=== PATIENT | female | born 1950 | race Caucasian/White ===

== ENCOUNTER 2019-02-10 16:37 | Emergency (ER) | payer OTHER ==
[~2019-02-10] VITALS: Ht 160 cm; Wt 47.6 kg
[2019-02-10] MEDS ORDERED: oxyCODONE/APAP 5/325MG (PERCOCET 5) TABLET PO ONE (17:00)
--- NOTE | 2019-02-10 17:02 | ED Upper Extremity ---
General Chief Complaint: Upper Extremity Stated Complaint: R ARM/SHOULDER INJ Nursing Triage Note: pt fell while walking into house on wednesday night and c/o right upper arm pain. pt seen at [facility] where they found multiple humeral fractures. pt reports decreased ROM. denies hitting head and LOC. not on blood thinners. Nursing Sepsis Screen: No Definite Risk Source: patient Exam Limitations: no limitations History of Present Illness Date Seen by Provider: Feb 10, 2019 Time Seen by Provider: 16:59 Initial Comments To ER per private vehicle from urgent care with c/o right upper arm pain after falling on it on wednesday02/05/19. States xrays were done showing humerus fracture so she was referred here. Onset: just prior to arrival Severity: moderate Pain/Injury Location: right other (humerus) Method of Injury: fell Modifying Factors: Worse With Movement Allergies and Home Medications Allergies Coded Allergies: No Known Drug Allergies (Unverified , 02/10/19) Home Medications Hydrocodone/Acetaminophen 1 Each Tablet, 1 EACH PO Q6H PRN for PAIN-MODERATE Prescribed by: CHERRIE GASCA on 02/10/19 [id number] Patient Home Medication List Home Medication List Reviewed: Yes Review of Systems Constitutional: see HPI EENTM: see HPI Respiratory: no symptoms reported Cardiovascular: no symptoms reported Genitourinary: no symptoms reported Musculoskeletal: see HPI Skin: no symptoms reported Psychiatric/Neurological: No Symptoms Reported Past Ibdqjzy-Nqhhhv-Sshkab Hx Patient Social History Recent Foreign Travel: No Contact w/Someone Who Travel: No Recent Infectious Disease Expo: No Physical Exam Vital Signs Vital Signs - First Documented 02/10/19 02/10/19 16:43 18:15 Temp 97.9 Pulse 96 Resp 20 B/P (MAP) 146/87 (106) Pulse Ox 99 O2 Delivery Room Air Capillary Refill : Less Than 3 Seconds Height, Weight, BMI Height: 5'3.00" Weight: 105lbs. oz. 47.243226oq; BMI Method:Stated General Appearance: WD/WN, no apparent distress HEENT: PERRL/EOMI, normal ENT inspection Neck: non-tender, full range of motion Respiratory: no respiratory distress, no accessory muscle use Gastrointestinal: normal bowel sounds, non tender Shoulder: ecchymosis (yellowish purple consistent with a 5 day old injury. ), limited ROM, pain Elbow/Forearm: ecchymosis, swelling Wrist: Yes ecchymosis, Yes swelling Neurologic/Psychiatric: alert, normal mood/affect, oriented x 3 Skin: normal color, warm/dry, ecchymosis, other (pain is only in the proximaly humerus but she is swollen and ecchymotic all the way down to her fingertips. Strong radial pulse ,normal ROM at wrist and fingers with normal sensory and motor functins. ) Progress/Results/Core Measures Results/Orders My Orders Medications Given in ED Vital Signs/I&O Blood Pressure Mean: 106 Departure Impression Primary Impression: Humerus fracture Qualified Codes: S42.291A - Other displaced fracture of upper end of right humerus, initial encounter for closed fracture Disposition: HOME, SELF-CARE Condition: Stable Departure-Patient Inst. Decision time for Depature: 17:45 Referrals: JD JACKSON MD Patient Instructions: How to Use a Shoulder Sling Add. Discharge Instructions: 1. Pain medication as needed. It may constipate you. If you'd rather just use tylenol then just do that. call Dr Mayorga on Wednesday to make an appointment to be seen. Wear a sling in the meantime at all times except when showering. All discharge instructions reviewed with patient and/or family. Voiced understanding. Scripts Hydrocodone/Acetaminophen ([place] 5-325 Tablet) 1 Each Tablet 1 EACH PO Q6H PRN for PAIN-MODERATE MDD 10, #14 TAB Prov: CHERRIE GASCA APRN 02/10/19 CHERRIE GASCA APRN Feb 10, 2019 17:02
[2019-02-10] MEDS ORDERED: ACETAMINOPHEN 325 MG TABLET PO ONE (17:30)
[2019-02-10] MEDS ORDERED: HYDR-4226 PO (17:46)
--- NOTE | 2019-02-10 17:55 | Diagnostic Imaging Report ---
INDICATION: Status post fall. Right arm pain. EXAMINATION: Right humerus, 02/10/2019. COMPARISON: None. FINDINGS: Two views of the humerus demonstrate a comminuted fracture of the proximal humerus with marked angulation of the humeral head in relation to the glenoid. It appears rotated, posteriorly, with widening at the glenohumeral joint space perhaps due to slight displacement of the fracture fragments or due to a joint effusion. The remaining visualized joint spaces are preserved. IMPRESSION: Markedly comminuted and displaced proximal humerus fracture, as described. Dictated by: Dictated on workstation # [id number]
--- NOTE | 2019-02-10 17:56 | Diagnostic Imaging Report ---
INDICATION: Patient fell on Wednesday. Right arm pain and shoulder pain. EXAMINATION: Right shoulder,02 FINDINGS: Three views of the shoulder demonstrate a markedly comminuted fracture of the proximal humerus. Rotation of the humeral head in relation to the glenoid is noted. This appears rotated posteriorly with mild widening of the glenohumeral joint noted. IMPRESSION: Markedly comminuted displaced humeral fracture. Dictated by: Dictated on workstation # [id number]
[2019-02-10 18:15] VITALS: BP 140/84
== END 2019-02-10 18:22 | disposition home or self-care (01) ==
LOC: EDUNIT# 16:37 → ER 16:39
DX: S42.291A Other displaced fracture of upper end of right humerus, initial encounter for closed fracture (principal); W18.30XA Fall on same level, unspecified, initial encounter; Y93.01 Activity, walking, marching and hiking
CPT/HCPCS: 73030; 73060; 99283

== ENCOUNTER 2019-06-29 12:33 | Outpatient (RCR) | payer MEDICARE, OTHER ==
[~2019-06-29 12:33] MED LIST: HYDR-4226 PO
== END 2019-06-29 14:28 | disposition home or self-care (01) ==
PROVIDERS: ATTEND Orthopaedic Surgery
DX: Z47.1 Aftercare following joint replacement surgery (principal); Z96.611 Presence of right artificial shoulder joint

== ENCOUNTER 2019-09-18 13:18 | Inpatient (IN) | payer MEDICARE ==
[~2019-09-18] VITALS: Ht 160 cm; Wt 47.6 kg
--- NOTE | 2019-09-18 13:36 | NUR ---
REPORT RECEIVED FROM BERNADINE RAMIREZ FROM [facility] AT THIS TIME.
--- NOTE | 2019-09-18 15:13 | History & Physical-Hospitalist ---
History of Present Illness HPI/Chief Complaint Patient is a 68-year-old female with no known medical problems who presented to the emergency department at [facility] due to left hip pain. She reports she fell Wednesday evening. Since then her pain has worsened and she developed left hip swelling. She was unable to walk and her boyfriend had to carry her to and from the bathroom. This morning when it didn't improve she elected to seek care in the emergency department where she was found to have a left hip fracture. She was transferred here for orthopedic surgery evaluation. She states her pain is well-controlled at this time. She has no previous history of fractures. Incidentally she was found to have a sodium of 125. She is on no medications and has no labs available for review of previous sodiums. Source: patient Date Seen 09/18/19 Time Seen by a Provider: 15:08 Attending Physician Toña Ny MD PCP Oswald Jay MD Referring Physician Date of Admission Sep 18, 2019 at 14:38 Home Medications & Allergies Home Medications Reviewed patient Home Medication Reconciliation performed by pharmacy medication reconciliations extracorporeal technician and/or nursing. Patients Allergies have been reviewed. Allergies Allergies Coded Allergies No Known Drug Allergies (Cilecoysnn36/4/19) Past Ufibihc-Renuzn-Aefmob Hx Past Med/Social Hx: Reviewed Nursing Past Med/Soc Hx Patient Social History Marrital Status: single Alcohol Use: Regular Use (6-8 beers 3x/week) Smoking Status: Current Everyday Smoker Type Used: Cigarettes Past Medical History Surgeries: Breast, Orthopedic Family History Reviewed Nursing Family Hx No Pertinent Family Hx Review of Systems Constitutional: no symptoms reported EENTM: no symptoms reported Respiratory: no symptoms reported Cardiovascular: no symptoms reported Gastrointestinal: no symptoms reported Genitourinary: no symptoms reported Musculoskeletal: see HPI, joint pain Skin: no symptoms reported Psychiatric/Neurological: No Symptoms Reported Physical Exam Physical Exam Vital Signs Capillary Refill : Height, Weight, BMI Height: 5'3.00" Weight: 105lbs. oz. 47.211626dd; BMI Method:Stated General Appearance: No Apparent Distress, WD/WN, Thin HEENT: Moist Mucous Membranes; No Scleral Icterus (L), No Scleral Icterus (R) Neck: Normal Inspection, Supple Respiratory: Lungs Clear, No Accessory Muscle Use, No Respiratory Distress Cardiovascular: Regular Rate, Rhythm, No Murmur Gastrointestinal: Normal Bowel Sounds, Non Tender, Soft Extremity: Normal Capillary Refill, No Calf Tenderness, No Pedal Edema, Other (mariama hose in place) Neurologic/Psychiatric: Alert, Oriented x3, Normal Mood/Affect Skin: Normal Color, Warm/Dry Results Results/Procedures Labs Patient resulted labs reviewed. Assessment/Plan Admission Diagnosis left hip fracture Admission Status: Inpatient Order (span 2 midnights) Reason for Inpatient Admission: orthopedic repair Assessment and Plan left hip fracture Ortho consulted, appreciate recs Fentanyl for pain NPO until ortho sees her PT/OT post op Per NSQIP Risk Calculator 4.2% for serious complication, defer ultimate risk/benefit assessment to surgeon Hyponatremia Recheck here Tobacco abuse Recommended cessation Not ready to quit Alcohol Use Denies history of withdrawals Diagnosis/Problems Diagnosis/Problems (1) Hip fracture Qualifiers: Encounter type: initial encounter Fracture type: closed Laterality: left Qualified Codes: S72.002A - Fracture of unspecified part of neck of left femur, initial encounter for closed fracture (2) Tobacco abuse (3) Hyponatremia TOÑA [place] MD Sep 18, 2019 15:13 POS
[2019-09-18] MEDS ORDERED: CATHETER FLUSH 10 ML SYR IV PRN (15:15)
[2019-09-18 15:23] VITALS: BP 101/66
[2019-09-18] MEDS ORDERED: FLU QUADRIvalent (5+ YOA) 2019-2020 (AFLURIA) 0.5 ML IM ONE (15:45)
[2019-09-18 16:00] VITALS: BP 122/82
[2019-09-18 16:12] LABS: BUN/CREATININE RATIO 9; CALCIUM 8.3 MG/DL (8.5-10.1); CARBON DIOXIDE 24 MMOL/L (21-32); CHLORIDE 94 MMOL/L (98-107); CREATININE SERUM 0.56 MG/DL (0.60-1.30); GFR ESTIMATED > 60; GLUCOSE 99 MG/DL (70-105); POTASSIUM 3.7 MMOL/L (3.6-5.0); SODIUM 127 MMOL/L (135-145)
[2019-09-18] MEDS ORDERED: NAPR220T66 PO (16:39)
[2019-09-18 19:34] VITALS: BP 107/72
[2019-09-18] MEDS: CATHETER FLUSH 10 ML SYR IV SCH (20:51)
[2019-09-18] MEDS: fentaNYL INJECTION 100 MCG/2 ML AMP IVP PRN (22:57)
[2019-09-19] VITALS (15 sets, daily range): BP systolic 96–149; BP diastolic 59–99
[2019-09-19] MEDS: fentaNYL INJECTION 100 MCG/2 ML AMP IVP PRN ×3 (05:03→14:43)
[2019-09-19] MEDS: CATHETER FLUSH 10 ML SYR IV SCH ×3 (05:03→22:13)
[2019-09-19 07:12] LABS: HEMOGLOBIN 9.8 G/DL (11.5-16.0); MEAN PLATELET VOLUME 12.1 FL (7.4-10.4); RED CELL DISTRIBUTION WIDTH 12.1 % (10.0-14.5); WHITE BLOOD COUNT 5.9 10^3/uL (4.3-11.0)
[2019-09-19 07:36] LABS: BUN/CREATININE RATIO 11; CALCIUM 8.2 MG/DL (8.5-10.1); CARBON DIOXIDE 25 MMOL/L (21-32); CHLORIDE 98 MMOL/L (98-107); CREATININE SERUM 0.55 MG/DL (0.60-1.30); GFR ESTIMATED > 60; GLUCOSE 84 MG/DL (70-105); POTASSIUM 3.5 MMOL/L (3.6-5.0); SODIUM 130 MMOL/L (135-145)
[2019-09-19 07:53] LABS: INR 0.9 (0.8-1.4); PROTHROMBIN TIME PATIENT 12.3 SEC (12.2-14.7)
[2019-09-19] MEDS ORDERED: LACTATED RINGERS 1,000 ML IV PRN ×2 (08:40→15:47)
--- NOTE | 2019-09-19 12:39 | Consultation ---
History of Present Illness History of Present Illness Patient Consulted On(luis/time) 09/19/19 12:36 Date Seen by Provider: Sep 19, 2019 Time Seen by Provider: 12:36 Reason for Visit: fall History of Present Illness Patient fell at home on 09/16/19. She presented to ER yesterday and was admitted for a IT fracture of the right hip. Orthopedics was consulted for management of the fracture. Allergies and Home Medications Allergies Coded Allergies: No Known Drug Allergies (Unverified , 09/18/19) Home Medications Naproxen Sodium 220 Mg Tablet, 220 MG PO Q8H PRN for PAIN-MILD, (Reported) Patient Home Medication List Home Medication List Reviewed: Yes Past Qjzivqo-Wvvzoj-Nxhvhd Hx Past Med/Social Hx: Reviewed Nursing Past Med/Soc Hx Patient Social History Alcohol Use: Regular Use (6-8 beers 3x/week) Smoking Status: Current Everyday Smoker Type Used: Cigarettes Recent Foreign Travel: No Contact w/Someone Who Travel: No Recent Infectious Disease Expo: No Past Medical History Breast, Orthopedic : No Family Medical History Reviewed Nursing Family Hx No Pertinent Family Hx Review of Systems-General Constitutional: no symptoms reported EENTM: no symptoms reported Respiratory: no symptoms reported Cardiovascular: no symptoms reported Gastrointestinal: no symptoms reported Musculoskeletal: joint pain Skin: no symptoms reported Psychiatric/Neurological: No Symptoms Reported Physical Exam-General Problems Physical Exam Vital Signs Vital Signs - First Documented 09/18/19 09/18/19 15:19 15:23 Temp 36.4 Pulse 99 Resp 16 B/P (MAP) 101/66 Pulse Ox 96 O2 Delivery Room Air Capillary Refill : Less Than 3 Seconds General Appearance: no apparent distress Respiratory: normal breath sounds, no respiratory distress, no accessory muscle use Cardiovascular: regular rate, rhythm, no edema Gastrointestinal: non tender, soft Back: normal inspection Extremities: no pedal edema, no calf tenderness, normal capillary refill, other (shortening and external rotation of right hip) Neurologic/Psychiatric: informatics physician II-XII nml as tested, no motor/sensory deficits, alert, normal mood/affect, oriented x 3 Skin: normal color, warm/dry Assessment/Plan Assessment/Plan Admission Diagnosis/Plan A: traumatic displaced intertrochanteric right hip fracture P: intramedullary nailing of right hip fracture this afternoon/evening Admission Status: Inpatient Order (span 2 midnights) Clinical Quality Measures DVT/VTE Risk/Contraindication: Risk Factor Score Per Nursin RFS Level Per Nursing on Admit: 4+=Very High SUMMER SKELTON APRN Sep 19, 2019 12:39 POS
--- NOTE | 2019-09-19 15:00 | Progress Note - Hospitalist ---
Subjective HPI/CC On Admission Date Seen by Provider: Sep 19, 2019 Time Seen by Provider: 11:00 Patient is a 68-year-old female with no known medical problems who presented to the emergency department at [facility] due to left hip pain. She reports she fell Wednesday evening. Since then her pain has worsened and she developed left hip swelling. She was unable to walk and her boyfriend had to carry her to and from the bathroom. This morning when it didn't improve she elected to seek care in the emergency department where she was found to have a left hip fracture. She was transferred here for orthopedic surgery evaluation. She states her pain is well-controlled at this time. She has no previous history of fractures. Incidentally she was found to have a sodium of 125. She is on no medications and has no labs available for review of previous sodiums. Subjective/Events-last exam Pt reports doing well. Pain well controlled. Waiting for surgery this evening. Objective Exam Vital Signs Vital Signs Date Time Temp Pulse Resp B/P (MAP) Pulse Ox O2 Delivery O2 Flow Rate FiO2 09/19/19 12:00 36.6 82 16 108/67 (81) 97 Room Air Capillary Refill : Less Than 3 Seconds General Appearance: No Apparent Distress, WD/WN Respiratory: Lungs Clear, No Respiratory Distress Cardiovascular: Regular Rate, Rhythm, No Murmur Neurologic/Psychiatric: Alert, Oriented x3 Results/Procedures Lab Laboratory Tests 09/18/19 15:36 09/19/19 06:05 Patient resulted labs reviewed. Assessment/Plan Assessment and Plan Assess & Plan/Chief Complaint left hip fracture Ortho consulted, appreciate recs Fentanyl for pain NPO for surgery later today PT/OT post op Per NSQIP Risk Calculator 4.2% for serious complication, defer ultimate risk/benefit assessment to surgeon Hyponatremia Improving, ?beer potomania Tobacco abuse Recommended cessation Not ready to quit Alcohol Use Denies history of withdrawals Diagnosis/Problems Diagnosis/Problems (1) Hip fracture Qualifiers: Encounter type: initial encounter Fracture type: closed Laterality: left Qualified Codes: S72.002A - Fracture of unspecified part of neck of left femur, initial encounter for closed fracture (2) Tobacco abuse (3) Hyponatremia Clinical Quality Measures DVT/VTE Risk/Contraindication: Risk Factor Score Per Nursin RFS Level Per Nursing on Admit: 4+=Very High TOÑA LUCAS MD Sep 19, 2019 15:00 POS
[2019-09-19] MEDS ORDERED: morphine INJ 10 MG/ML 1ML (SYR OR VIAL) IVP ONE (16:00)
[2019-09-19] MEDS ORDERED: MEPERIDINE (DEMEROL) INJ 50 MG/ML IVP ONE (16:00)
[2019-09-19] MEDS ORDERED: fentaNYL INJECTION 100 MCG/2 ML AMP IVP ONE (16:00)
[2019-09-19] MEDS ORDERED: ONDANSETRON 4 MG/2 ML (SDV) Z0FRAN IVP PRN (16:00)
[2019-09-19] MEDS ORDERED: RT-ALBUTEROL SULF 2.5 MG/3 ML PRE-MIX VIAL INH PRN (16:30)
--- NOTE | 2019-09-19 17:44 | Progress Note-Pre Operative ---
Pre-Operative Progress Note H&P Reviewed The H&P was reviewed, patient examined and no changes noted. Date Seen by Provider: Sep 19, 2019 Time Seen by Provider: 17:43 Date H&P Reviewed: Sep 19, 2019 Time H&P Reviewed: 17:43 Pre-Operative Diagnosis: Right Closed Intertrochanteric Hip fracture TC FERNANDO MD Sep 19, 2019 17:43 POS
[2019-09-19] MEDS ORDERED: ceFAZolin INJECTION 1,000 MG VIAL IV ONE (17:45)
[2019-09-19] MEDS ORDERED: ceFAZolin INJECTION 2,000 MG ONE (17:57)
[2019-09-19] MEDS ORDERED: LIDOCAINE PF 2% 5 ML (XYLOCAINE) VIAL ONE (17:59)
[2019-09-19] MEDS ORDERED: ROCURONIUM 10 MG/ML 5 ML SYRINGE IV ONE (17:59)
[2019-09-19] MEDS ORDERED: proPOfol 200 MG/20 ML (DIPRIVAN) VIAL IV ONE (17:59)
[2019-09-19] MEDS ORDERED: SEVOFLURANE (ULTANE) 15 ML INHAL SOLN ONE ×5 (17:59→19:00)
[2019-09-19] MEDS ORDERED: ONDANSETRON 4 MG/2 ML (SDV) Z0FRAN ONE ×2 (17:59→19:15)
[2019-09-19] MEDS ORDERED: SUCCINYLCHOLINE INJ 100 MG/5 ML SYR ONE (17:59)
[2019-09-19] MEDS ORDERED: fentaNYL INJECTION 100 MCG/2 ML AMP ONE (18:00)
[2019-09-19] MEDS ORDERED: MIDAZOLAM 2 MG/2 ML (VERSED) VIAL ONE (18:00)
--- NOTE | 2019-09-19 18:00 | NUR ---
TO OR PER BED
[2019-09-19] MEDS ORDERED: GENTAMICIN 40 MG/ML 2 ML INJ SDV ONE (18:13)
[2019-09-19] MEDS ORDERED: BACITRACIN OINTMENT 28 GM TUBE ONE (18:13)
[2019-09-19] MEDS: ceFAZolin 2 GM IV Premixed 50 ML IV SCH (18:18)
[2019-09-19] MEDS ORDERED: BUPIVACAINE 0.5% 30 ML (SENSORCAINE) VIAL ONE (18:41)
[2019-09-19] MEDS ORDERED: NEOSTIGMINE 3 MG/3 ML VIAL ONE (18:55)
[2019-09-19] MEDS ORDERED: GLYCOPYRROLATE 0.2 MG/ML (ROBINUL) 2 ML VIAL ONE (18:55)
--- NOTE | 2019-09-19 19:06 | Progress Note-Post Operative ---
Post-Operative Progess Note Surgeon (s)/Oil And Gas Field Technician (s) Surgeon TC FERNANDO MD Oil And Gas Field Technician: JEREMÍAS Solitario Pre-Operative Diagnosis Right Closed Intertrochanteric Hip fracture Post-Operative Diagnosis Same Procedure & Operative Findings Date of Procedure 09/19/19 Procedure Performed/Findings Right Hip IM nailing Anesthesia Type GETA Estimated Blood Loss Estimated blood loss (mL): min Specimens/Packing Specimens Removed none TC FERNANDO MD Sep 19, 2019 19:06 POS
[2019-09-19] MEDS ORDERED: morphine INJ 10 MG/ML 1ML (SYR OR VIAL) ONE (19:15)
--- NOTE | 2019-09-19 19:50 | Diagnostic Imaging Report ---
Examination: Fluoroscopy. HISTORY: Surgery. FINDINGS: Comparison is 09/18/2019. Four intraoperative films for open reduction internal fixation of intertrochanteric right femur fracture are presented. IMPRESSION: 1. In progress open reduction internal fixation of an intertrochanteric right femur fracture. Dictated by: Dictated on workstation # [id number]
[2019-09-19] MEDS ORDERED: ENOXAPARIN 30 MG/0.3 ML (LOVENOX) SYR SC SCH (20:00)
--- NOTE | 2019-09-19 20:30 | NUR ---
PT RETURNED TO FLOOR BY CART FROM SURGERY. REPORT GIVEN BY BERNADINE LANDON.
[2019-09-19] MEDS: NS IV 1000 ML 1,000 ML IV SCH (20:56)
[2019-09-19] MEDS: ENOXAPARIN 30 MG/0.3 ML (LOVENOX) SYR SC SCH (20:56)
[2019-09-19] MEDS: RT-ALBUTEROL SULF 2.5 MG/3 ML PRE-MIX VIAL INH SCH (21:41)
--- NOTE | 2019-09-19 23:39 | OPERATIVE REPORT ---
DATE OF SERVICE: 09/19/2019 PREOPERATIVE DIAGNOSIS: Right hip displaced intertrochanteric hip fracture, closed. POSTOPERATIVE DIAGNOSIS: Right hip displaced intertrochanteric hip fracture, closed. PROCEDURE PERFORMED: Right hip IM nailing for fracture. DATE AND TIME OF SURGERY: Please see anesthesia record, 09/19/19. IMPLANTS USED: DePuy Synthes size 11 short TFN with 100 mm helical blade and a 34 mm distal locking screw. SURGEON: Tc Mendosa MD SERVICE CENTER APPRAISER: LAURI Solitario. ROLE OF MANUFACTURING ASSEMBLER: Aid in retraction and fracture reduction, implantation of instrumentation and wound closure. SECOND SERVICE CENTER APPRAISER: Michele, medical student. ANESTHESIA: General endotracheal. ESTIMATED BLOOD LOSS: Minimal. INTRAVENOUS FLUIDS: Please see anesthesia record. ANTIBIOTICS: Ancef. COMPLICATIONS: None. SPECIMENS: None. INDICATIONS FOR PROCEDURE: The patient is a 68-year-old female who fell at home sustaining the above fracture. Initially seen and evaluated by my partner but care was turned over due to availability and access to be able to get her fixed in a timely manner. DESCRIPTION OF PROCEDURE: The patient was taken to the preoperative holding area and brought back to the operative suite. After adequate induction of general anesthetic, preoperative antibiotics, placed on the fracture table. Sterile prep and drape to the right hip, thigh and leg region. Wall drape was placed and then C-arm was utilized to help get the fracture reduced and then a small incision made over the tip of the trochanter. Guidepin was placed into center of the canal. Proximal broaching reamer was utilized to open the canal and then the nail was passed down the canal into satisfactory position. The helical blade guide was then placed down on to bone. A guidepin was placed into a center-center position of the femoral head, felt to be satisfactory. Lateral cortex broach drill was then utilized and then a 100 mm helical blade was impacted in position with great fit achieved and was locked to the top of the nail and then slightly backed off. Distal locking screw was placed, outrigger was removed. Wounds were irrigated. Final imaging was obtained and satisfactory. Wounds were closed in layers. The patient transferred to recovery room in stable condition having tolerated the procedure well. Job ID: [id number] DocumentID: [id number] Dictated Date: 09/19/2019 19:09:00 Head Of Visual Merchandising Date: 09/19/2019 23:38:31 Dictated By: TC MENDOSA MD [facility]
[2019-09-20] MEDS: ceFAZolin 2 GM IV Premixed 50 ML IV SCH ×2 (01:37→09:28)
[2019-09-20 04:30] VITALS: BP 124/74
[2019-09-20] MEDS: CATHETER FLUSH 10 ML SYR IV SCH ×3 (05:08→20:13)
[2019-09-20 05:13] LABS: BASOPHILS % (AUTO) 0 % (0-10); EOSINOPHILS % (AUTO) 0 % (0-10); HEMATOCRIT 23 % (35-52); HEMOGLOBIN 7.7 G/DL (11.5-16.0); LYMPHOCYTES # (AUTO) 0.5 X 10^3 (1.0-4.0); LYMPHOCYTES % (AUTO) 7 % (12-44); MEAN CORPUSCULAR HEMOGLOBIN 35 PG (25-34); MEAN CORPUSCULAR HGB CONC 33 G/DL (32-36); MEAN CORPUSCULAR VOLUME 104 FL (80-99); MEAN PLATELET VOLUME 11.6 FL (7.4-10.4); MONOCYTES # (AUTO) 0.5 X 10^3 (0.0-1.0); MONOCYTES % (AUTO) 8 % (0-12); NEUTROPHILS # (AUTO) 5.3 X 10^3 (1.8-7.8); NEUTROPHILS % (AUTO) 85 % (42-75); PLATELET COUNT 137 10^3/uL (130-400); RED CELL DISTRIBUTION WIDTH 11.9 % (10.0-14.5); WHITE BLOOD COUNT 6.3 10^3/uL (4.3-11.0)
[2019-09-20 05:22] LABS: BUN/CREATININE RATIO 10; CALCIUM 7.8 MG/DL (8.5-10.1); CARBON DIOXIDE 21 MMOL/L (21-32); CHLORIDE 102 MMOL/L (98-107); CREATININE SERUM 0.52 MG/DL (0.60-1.30); GFR ESTIMATED > 60; GLUCOSE 122 MG/DL (70-105); POTASSIUM 3.6 MMOL/L (3.6-5.0); SODIUM 132 MMOL/L (135-145)
--- NOTE | 2019-09-20 05:47 | Progress Note ---
Subjective Date Seen by a Provider: Sep 20, 2019 Time Seen by a Provider: 05:44 Subjective/Events-last exam POD #1, S/P right hip TFN VSS, afebrile No complaints, states that her right hip feels better Patient has not been out of bed Review of Systems General: No Chills Pulmonary: No Dyspnea, No Cough Cardiovascular: No: Chest Pain Gastrointestinal: No: Abdominal Pain Musculoskeletal: leg pain Neurological: No: Weakness, Incoordination, Confusion Objective Exam Vital Signs Date Time Temp Pulse Resp B/P (MAP) Pulse Ox O2 Delivery O2 Flow Rate FiO2 09/20/19 04:30 36.4 73 20 124/74 (91) 98 Room Air 09/19/19 23:28 36.5 85 19 118/68 (85) 97 Room Air 09/19/19 21:42 90 Room Air 09/19/19 20:35 36.0 71 18 149/79 (102) 96 Room Air 09/19/19 20:30 Room Air 09/19/19 20:30 36.3 18 110/68 (82) 100 Room Air 09/19/19 20:20 18 125/68 (87) 100 Room Air 09/19/19 20:17 Room Air 09/19/19 20:12 Room Air 09/19/19 20:10 18 107/64 (78) 100 Room Air 09/19/19 20:07 Room Air 09/19/19 20:00 Room Air 09/19/19 20:00 OxyMask 3 09/19/19 20:00 18 131/83 (99) 100 OxyMask 3 09/19/19 19:50 18 144/79 (100) 100 OxyMask 6 09/19/19 19:45 OxyMask 6 09/19/19 19:40 18 135/99 (111) 100 OxyMask 6 09/19/19 19:31 36.4 22 147/99 (115) 100 OxyMask 6 09/19/19 19:31 OxyMask 6 09/19/19 16:16 36.6 82 97 09/19/19 16:00 37.1 77 18 96/59 (71) 97 Room Air 09/19/19 12:00 36.6 82 16 108/67 (81) 97 Room Air 09/19/19 08:00 Room Air 09/19/19 08:00 36.4 85 16 108/70 (83) 97 Room Air I & O 09/20/19 07:00 Intake Total 3824 ml Output Total 1650 ml Balance 2174 ml Capillary Refill : Less Than 3 Seconds General Appearance: No Apparent Distress Respiratory: No Respiratory Distress Cardiovascular: No Edema, Normal Peripheral Pulses Gastrointestinal: soft Extremity: Normal Capillary Refill, No Calf Tenderness Neurologic/Psychiatric: Alert, Oriented x3, No Motor/Sensory Deficits, Normal Mood/Affect Skin: Other (Dressing CDI) Results Lab Laboratory Tests 09/19/19 06:05: White Blood Count 5.9, Red Blood Count 2.79L, Hemoglobin 9.8L, Hematocrit 28L, Mean Corpuscular Volume 101H, Mean Corpuscular Hemoglobin 35H, Mean Corpuscular Hemoglobin Concent 35, Red Cell Distribution Width 12.1, Platelet Count 151, Mean Platelet Volume 12.1H, Prothrombin Time 12.3, INR Comment 0.9, Sodium Level 130L, Potassium Level 3.5L, Chloride Level 98, Carbon Dioxide Level 25, Anion Gap 7, Blood Urea Nitrogen 6L, Creatinine 0.55L, Estimat Glomerular Filtration Rate > 60, BUN/Creatinine Ratio 11, Glucose Level 84, Calcium Level 8.2L 09/20/19 04:50: White Blood Count 6.3, Red Blood Count 2.23L, Hemoglobin 7.7#L, Hematocrit 23L, Mean Corpuscular Volume 104H, Mean Corpuscular Hemoglobin 35H, Mean Corpuscular Hemoglobin Concent 33, Red Cell Distribution Width 11.9, Platelet Count 137, Mean Platelet Volume 11.6H, Sodium Level 132L, Potassium Level 3.6, Chloride Level 102, Carbon Dioxide Level 21, Anion Gap 9, Blood Urea Nitrogen 5L, Creatinine 0.52L, Estimat Glomerular Filtration Rate > 60, BUN/Creatinine Ratio 10, Glucose Level 122H, Calcium Level 7.8L, Neutrophils (%) (Auto) 85H, Lymphocytes (%) (Auto) 7L, Monocytes (%) (Auto) 8, Eosinophils (%) (Auto) 0, Basophils (%) (Auto) 0, Neutrophils # (Auto) 5.3, Lymphocytes # (Auto) 0.5L, Monocytes # (Auto) 0.5, Eosinophils # (Auto) 0.0, Basophils # (Auto) 0.0 Assessment/Plan Assessment/Plan Assess & Plan/Chief Complaint Right hip intertrochanteric fracture S/P Right hip TFN Acute on chronic anemia Defer top medicine service transfusion need, patient is hemodynamically stable at this time Ambulate Clinical Quality Measures DVT/VTE Risk/Contraindication: Risk Factor Score Per Nursin RFS Level Per Nursing on Admit: 4+=Very High SUSAN COOPER Sep 20, 2019 05:47 POS
[2019-09-20] MEDS: NS IV 1000 ML 1,000 ML IV SCH ×2 (06:19→09:32)
[2019-09-20 08:00] VITALS: BP 119/69
[2019-09-20] MEDS: HYDROcodone/APAP 5 MG/325 MG (LORTAB) TAB PO PRN ×3 (08:37→18:58)
--- NOTE | 2019-09-20 09:34 | Physical Therapy Evaluation ---
PT Evaluation-General Medical Diagnosis Admission Date Sep 18, 2019 at 14:38 Medical Diagnosis: S/P R hip TFN Onset Date: Sep 19, 2019 Therapy Diagnosis Therapy Diagnosis: impaired strength/ROM, balance, abn gait Height/Weight Height (Feet): 5 Height (Inches): 3.00 Weight (Pounds): 105 Precautions Precautions/Isolations: Fall Prevention, Standard Precautions Weight Bear Status Right Lower Extremity: Right Weight Bearing/Tolerated Left Lower Extremity: Left Weight Bearing/Tolerated Referral Physician: Norman Reason for Referral: Evaluation/Treatment Medical History Additional Medical History Past Medical History Surgeries: Breast, Orthopedic Reviewed History: Yes Social History Home: Single Level Current Living Status: Significant Other Entry Into Home: Stairs Without Railing PT Steps Into Home: 4 (4 steps to front of house. 5 steps into back of house) Prior Prior Level of Function SCALE: Activities may be completed with or without assistive devices. 4-Zsrccxbxpa-qtsxniq completes the activity by him/herself with no assistance from a helper. 5-Set-up or Clean-up Assistance-helper sets up or cleans up; patient completes activity. [place] assists only prior to or following the activity. 4-Supervision or Touching Assistance-helper provides verbal cues and/or touching/steadying and/or contact guard assistance as patient completes a ctivity. Assistance may be provided throughout the activity or intermittently. 3-Partial/Moderate Assistance-helper does LESS THAN HALF the effort. [place] lifts, holds or supports trunk or limbs, but provides less than half the effort. 2-Substantial/Maximal Assistance-helper does MORE THAN HALF the effort. [place] lifts or holds trunk or limbs and provides more than half the effort. 6-Zbdxccdaa-pwhxba does ALL the effort. Patient does none of the effort to complete the activity. Or, the assistance of 2 or more helpers is required for the patient to complete the activity. If activity was not attempted, code reason: 7-Patient Refused. 9-Not Applicable-not attempted and the patient did not perform the activity before the current illness, exacerbation or injury. 10-Not Attempted due to Environmental Limitations-(lack of equipment, weather restraints, etc.). 88-Not Attempted due to Medical Conditions or Safety Concerns. Bed Mobility: 6 Transfers (B,C,W/C): 6 Gait: 6 Stairs: 6 Indoor Mobility (Ambulation): Independent Stairs: Independent PT Evaluation-Current Subjective pt in bed finishing OT pre-tx. Pt agrees to PT at this time. Pt has unrated pain in R hip at this time. Pt sitting in recliner post-tx with feet elevated. tray table, call light, room phone in reach with all needs met at this time. Pt/Family Goals Pt goal is to go back home independent Objective Patient Orientation: Person, Place, Time, Situation Problem Solving: Poor Attachments: Polar Pack (2 ice packs), IV ROM/Strength Strength Lower Extremities L LE globally 5/5 throughout R LE not tested at this time secondary to post surgical status Integumentary/Posture Integumentary see nursing notes Bowel Incontinence: No Bladder Incontinence: No Sensory Vision: Functional Hearing: Functional Sensation Right Lower Extremit: Intact Sensation Left Lower Extremity: Impaired (Pt not able to report touch to anterior thigh down to knee) Transfers Lying to Sitting/Side of Bed(Q: 3 (Antonina) Sit to Stand (QC): 4 (CGA) Gait Does the Patient Walk?: Yes Mode of Locomotion: Walk Anticipated Mode of Locomotion: Walk Distance: 1=up to 49 ft Walk 10 feet (QC): 4 (CGA) Distance: 10'x2 Gait Assistive Device: FWW Comments/Gait Description Pt leans heavily on the FWW for gait with R LE antalgic gait pattern with the R LE turned out trying to relieve WB on the R LE Wheelchair Training Does the Pt Use a Wheelchair?: No Balance Sitting Static: Good Sitting Dynamic: Good Standing Static: Poor Standing Dynamic: Poor Treatment Pt performed bed mobility, transfer training, skilled ambulation training, and education. Pt performed functional LE strengthening B/L sitting 1set 10 reps: LAQ, HS, AP's, marching, QS's, GS's Assessment/Needs Pt attempts to decrease WB throught the involved RLE. Pt is unsafe and unsteady on her feet as she multiple times let go of the FWW to adjust gown or move something and would loose balance required Antonina to regain balance. Rehab Potential: Fair PT Apparel Manager Goals Longterm Goals PT Apparel Manager Goals Time Frame: Sep 27, 2019 Sit to Lying (QC): 6 Lying-Sitting on Side/Bed(QC): 6 Sit to Stand (QC): 6 Roll Left to Right (QC): 6 Chair/Xkh-bo-Wphqz Xfer(QC): 6 Distance: 200' Walk 10 feet (QC): 6 Walk 50ft with 2 Turns (QC): 6 Walk 150 ft (QC): 6 Gait Assistive Device: FWW 4 Steps (QC): 4 (SBA) PT Plan Problem List Problem List: Activity Tolerance, Functional Strength, Safety, Balance, Gait, Transfer, Bed Mobility, ROM Treatment/Plan Treatment Plan: Continue Plan of Care Treatment Plan: Bed Mobility, Education, Functional Activity Jeanette, Functional Strength, Gait, Safety, Therapeutic Exercise, Transfers Frequency: 11 times per week Estimated Hrs Per Day: .25 hour per day Patient and/or Family Agrees t: Yes Safety Risks/Education Patient Education: Gait Training, Transfer Techniques, Correct Positioning, Safety Issues Teaching Recipient: Patient Teaching Methods: Demonstration, Discussion Response to Teaching: Return Demonstration, Reinforcement Needed Discharge Recommendations Plan Patient will peform bed mobility and transfer training, balance and endurance training, functional strengthening, stair training, gait training, and education. Therapy Discharge Recommendati: Other, See Comments (home with family) Time/GCodes Time In: 845 Time Out: 902 Total Billed Treatment Time: 17 Total Billed Treatment 1 visit EVL 17' RANJITH ROJAS PT Sep 20, 2019 09:34 POS
--- NOTE | 2019-09-20 10:24 | Occupational Therapy Eval ---
OT Evaluation-General/PLF Medical Diagnosis Admission Date Sep 18, 2019 at 14:38 Medical Diagnosis: S/P R hip TFN Onset Date: Sep 19, 2019 Therapy Diagnosis Therapy Diagnosis: Decreased ADL skills Height/Weight Height (Feet): 5 Height (Inches): 3.00 Weight (Pounds): 105 Precautions Precautions/Isolations: Fall Prevention, Standard Precautions Weight Bear Status Weight Bearing Restriction: Weight Bearing/Tolerated Referral Physician: Norman Referral Reason: Activity Tolerance, Self Care, Evaluation/Treatment, Strengthening/ROM Medical History Additional Medical History Right Total reverse shoulder approximately 11 months ago. Current History Pt. fell at home. States that she had right hip pain immediately. Did not come to ER for 2 days. Found to have right hip fx. TFN right hip performed. Reviewed History: Yes Social History Home: Single Level Current Living Status: Significant Other Entry Into Home: Stairs Without Railing Steps Into Home: 4 (4 steps to front of house. 5 steps into back of house) Pt. reports that at back of trailer, pt. has 5 steps with a railing. ADL-Prior Level of Function SCALE: Activities may be completed with or without assistive devices. 3-Jktmjkbjnz-rfuvscc completes the activity by him/herself with no assistance from a helper. 5-Set-up or Clean-up Assistance-helper sets up or cleans up; patient completes activity. [place] assists only prior to or following the activity. 4-Supervision or Touching Assistance-helper provides verbal cues and/or touching/steadying and/or contact guard assistance as patient completes activity. Assistance may be provided throughout the activity or intermittently. 3-Partial/Moderate Assistance-helper does LESS THAN HALF the effort. [place] lifts, holds or supports trunk or limbs, but provides less than half the effort. 2-Substantial/Maximal Assistance-helper does MORE THAN HALF the effort. [place] lifts or holds trunk or limbs and provides more than half the effort. 2-Dzsssnsma-vbtwtm does ALL the effort. Patient does none of the effort to complete the activity. Or, the assistance of 2 or more helpers is required for the patient to complete the activity. If activity was not attempted, code reason: 7-Patient Refused. 9-Not Applicable-not attempted and the patient did not perform the activity before the current illness, exacerbation or injury. 10-Not Attempted due to Environmental Limitations-(lack of equipment, weather restraints, etc.). 88-Not Attempted due to Medical Conditions or Safety Concerns. ADL PLOF Comments Pt. was independent with daily tasks such as bathing, dressing. Does not use AE or have a walker. Self Care: Independent Functional Cognition: Independent DME/Equipment: Shower OT Current Status Subjective Pt. reports 4/10 pain in right hip. Nursing gives pain medication. Appearance Pt. in bed. Agrees to work with therapy. Mental Status/Objective Patient Orientation: Person, Place, Time, Situation Attachments: IV Current Glasses/Contacts: Yes Hand Dominance: Right Upper Extremity ROM Pt. is able to flex right shoulder to approximately 90 degrees. Left shoulder WFL. ADL-Treatment Shower/Bathe Self (QC): 3 (Pt. is able to wash upper body, and upper thighs seated on toilet. Requires max assist in stance to wash karthik area. Pt. declines washing feet as she has EMIL hose on and slipper socks.) Lower Body Dressing (QC): 3 (Pt. able to don left slipper sock while in bed. Unable to reach right foot to don right sock.) On/Off Footwear (QC): 3 Toileting Hygiene (QC): 2 Toilet Transfer (QC): 3 (CGA stand-sit. Mod assist sit-stand.) Other Treatments Pt. participated in partial co-treat with PT due to pain and fatigue level. OT initiated treatment and PT came to assist. OT focused on ADL skills while PT focused on transfers and LE exercises. Transferred min assist supine-sit. Mod sit-stand. Pt. ambulated to bathroom to attempt toileting task. Completed partial sponge bath while on toilet. Donned fresh gown and slipper socks. Ambulated to chair in room with min assist and transferred with CGA. PT took over at this point for LE exercises. All needs met. Education OT Patient Education: Correct positioning, Exercise program, Modified ADL techniques, Progress toward Goal/Update tx plan, Purpose of tx/functional activities, Reviewed precautions, Rehab process, Transfer techniques Teaching Recipient: Patient Teaching Methods: Demonstration, Discussion Response to Teaching: Verbalize Understanding, Return Demonstration OT Short Term Goals Short Term Goals Time Frame: Sep 27, 2019 Eating(FIM): 5 Grooming(FIM): 5 Bathing(FIM): 4 Upper Body Dressing(FIM): 5 Lower Body Dressing(FIM): 4 Toileting(FIM): 4 Transfers (B,C,W/C) (FIM): 5 Toilet/Commode Transfer(FIM): 5 Shower Transfer(FIM): 4 Additional Short Term Goals: 1-Demonstrate ADL Tasks, 2-Verbalize Understanding , 3-ImproveStrength/Jeanette 1=Demonstrate adherence to instructed precautions during ADL tasks. 2=Patient will verbalize/demonstrate understanding of assistive devices/modifications for ADL. 3=Patient will improve strength/tolerance for activity to enable patient to perform ADL's. OT Custodial Goals Attendant [facility] Goals Time Frame: Oct 04, 2019 Eating (QC): 6 Oral Hygiene (QC): 6 Shower/Bathe Self (QC): 5 Upper Body Dressing (QC): 6 Lower Body Dressing (QC): 6 On/Off Footwear (QC): 6 Toileting Hygiene (QC): 6 Toilet/Commode Transfer (QC): 6 Additional Goals: 1-Demonstrate ADL Tasks, 2-Verbalize Understanding, 3- ImproveStrength/Jeanette 1=Demonstrate adherence to instructed precautions during ADL tasks. 2=Patient will verbalize/demonstrate understanding of assistive devices/modifi cations for ADL. 3=Patient will improve strength/tolerance for activity to enable patient to perform ADL's. OT Education/Plan Problem List/Assessment Assessment: Decreased Activ Tolerance, Dependent Transfers, Impaired Bed Mobility, Impaired Funct Balance, Impaired I ADL's, Impaired Self-Care Skills, Restricted Funct UE ROM Discharge Recommendations Plan/Recommendations: Continue POC Therapy Discharge Recommendati: Post Acute OT Equpiment Recommendations-D/C: Bath Chair, Hip Kit Treatment Plan/Plan of Care Treatment,Training & Education: Yes Patient would benefit from OT for education, treatment and training to promote independence in ADL's, mobility, safety and/or upper extremity function for ADL's. Plan of Care: ADL Retraining, Functional Mobility, UE Funct Exercise/Act Treatment Duration: Oct 04, 2019 Frequency: 5 times per week Estimated Hrs Per Day: .5 hour per day Agreement: Yes Rehab Potential: Good Time/GCodes Start Time: 08:30 Stop Time: 08:55 Total Time Billed (hr/min): 25 Billed Treatment Time 3865-9409 Partial co-treatment with PT 15minutes(25minutes total) Please see above note for designated roles. 1, EVM x 15minutes YAN DOHERTY OT Sep 20, 2019 10:24 POS
[2019-09-20] MEDS: RT-ALBUTEROL SULF 2.5 MG/3 ML PRE-MIX VIAL INH SCH ×2 (11:30→20:01)
--- NOTE | 2019-09-20 11:40 | Progress Note - Hospitalist ---
Subjective HPI/CC On Admission Date Seen by Provider: Sep 20, 2019 Time Seen by Provider: 11:35 Patient is a 68-year-old female with no known medical problems who presented to the emergency department at [facility] due to left hip pain. She reports she fell Wednesday evening. Since then her pain has worsened and she developed left hip swelling. She was unable to walk and her boyfriend had to carry her to and from the bathroom. This morning when it didn't improve she elected to seek care in the emergency department where she was found to have a left hip fracture. She was transferred here for orthopedic surgery evaluation. She states her pain is well-controlled at this time. She has no previous history of fractures. Incidentally she was found to have a sodium of 125. She is on no medications and has no labs available for review of previous sodiums. Subjective/Events-last exam Pt reports doing well. Has already worked with therapy and has continued to do her exercises in the chair. Discussed with RN and pain well controlled. Objective Exam Vital Signs Vital Signs Date Time Temp Pulse Resp B/P (MAP) Pulse Ox O2 Delivery O2 Flow Rate FiO2 09/20/19 09:03 98 Room Air 09/20/19 08:00 36.5 64 18 119/69 (86) 09/19/19 20:00 3 Capillary Refill : Less Than 3 Seconds General Appearance: No Apparent Distress, WD/WN Respiratory: Lungs Clear, No Respiratory Distress Cardiovascular: Regular Rate, Rhythm, No Murmur Extremity: No Calf Tenderness, No Pedal Edema Neurologic/Psychiatric: Alert, Oriented x3 Results/Procedures Lab Laboratory Tests 09/20/19 04:50 Patient resulted labs reviewed. Assessment/Plan Assessment and Plan Assess & Plan/Chief Complaint Right hip fracture POD #1 IRU consulted Ortho consulted, appreciate recs Contineu curent pain regimen PT/OT Anemia, macrocytic Hgb 7.7 Will check iron studies, will likely need Infed Hyponatremia Improving still, ?beer potomania Tobacco abuse Recommended cessation Not ready to quit Alcohol Use Denies history of withdrawals Diagnosis/Problems Diagnosis/Problems (1) Hip fracture Qualifiers: Encounter type: initial encounter Fracture type: closed Laterality: left Qualified Codes: S72.002A - Fracture of unspecified part of neck of left femur, initial encounter for closed fracture (2) Tobacco abuse (3) Hyponatremia Clinical Quality Measures DVT/VTE Risk/Contraindication: Risk Factor Score Per Nursin RFS Level Per Nursing on Admit: 4+=Very High TOÑA LUCAS MD Sep 20, 2019 11:40 POS
[2019-09-20 12:00] VITALS: BP 113/81
[2019-09-20 13:40] VITALS: BP 113/81
--- NOTE | 2019-09-20 14:14 | Physical Therapy Daily Note ---
PT Daily Note-Current Subjective pt in bed pre-tx. Pt agrees to PT and states she just got back into bed. Pt with unrated R LE pain Appearance pt in bed post-tx. Pt with call light, room phone, tray table in reach with all needs met at this time. Pt's spouse present for duration of treatment. Mental Status Patient Orientation: Person, Place, Time, Situation Attachments: Polar Pack (2 ice packs), IV Transfers SCALE: Activities may be completed with or without assistive devices. 3-Hxisezgmby-fceezsb completes the activity by him/herself with no assistance from a helper. 5-Set-up or Clean-up Assistance-helper sets up or cleans up; patient completes activity. [place] assists only prior to or following the activity. 4-Supervision or Touching Assistance-helper provides verbal cues and/or touching/steadying and/or contact guard assistance as patient completes activity. Assistance may be provided throughout the activity or intermittently. 3-Partial/Moderate Assistance-helper does LESS THAN HALF the effort. [place] lifts, holds or supports trunk or limbs, but provides less than half the effort. 2-Substantial/Maximal Assistance-helper does MORE THAN HALF the effort. [place] lifts or holds trunk or limbs and provides more than half the effort. 2-Uzydphjnx-dinxdh does ALL the effort. Patient does none of the effort to complete the activity. Or, the assistance of 2 or more helpers is required for the patient to complete the activity. If activity was not attempted, code reason: 7-Patient Refused. 9-Not Applicable-not attempted and the patient did not perform the activity before the current illness, exacerbation or injury. 10-Not Attempted due to Environmental Limitations-(lack of equipment, weather restraints, etc.). 88-Not Attempted due to Medical Conditions or Safety Concerns. Sit to Lying (QC): 3 (Antonina for legs into bed) Sit to Stand (QC): 4 (CGA) Weight Bearing Right Lower Extremity: Right Weight Bearing/Tolerated Left Lower Extremity: Left Weight Bearing/Tolerated Gait Training Distance: 92' Walk 10 feet (QC): 4 (CGA) Walk 50 ft with 2 Turns(QC): 4 (CGA) Gait Assistive Device: FWW Pt continues with step to gait pattern bearing increased weight on the R LE. Treatments pt performed bed mobility, transfer training, skilled ambulation training, and education this date. Assessment Current Status: Good Progress Pt ambulated increased distance this session with increased steadiness on her feet. Pt demonstrated mod SOB with ambulation requiring 1 standing rest break and about 30 second break EOB before laying down. PT Correction Goals Department Supervisor Goals PT Department Supervisor Goals Time Frame: Sep 27, 2019 Sit to Lying (QC): 6 Lying-Sitting on Side/Bed(QC): 6 Sit to Stand (QC): 6 Roll Left to Right (QC): 6 Chair/Yxu-du-Eebbh Xfer(QC): 6 Distance: 200' Walk 10 feet (QC): 6 Walk 50ft with 2 Turns (QC): 6 Walk 150 ft (QC): 6 Gait Assistive Device: FWW 4 Steps (QC): 4 (SBA) PT Plan Problem List Problem List: Activity Tolerance, Functional Strength, Safety, Balance, Gait, Transfer, Bed Mobility Treatment/Plan Treatment Plan: Continue Plan of Care Treatment Plan: Bed Mobility, Education, Functional Activity Jeanette, Functional Strength, Gait, Safety, Therapeutic Exercise, Transfers Frequency: 11 times per week Estimated Hrs Per Day: .25 hour per day Patient and/or Family Agrees t: Yes Safety Risks/Education Patient Education: Gait Training, Transfer Techniques, Correct Positioning, Safety Issues Teaching Recipient: Patient Teaching Methods: Demonstration, Discussion Response to Teaching: Return Demonstration, Reinforcement Needed Time/GCodes Time In: 1342 Time Out: 1357 Total Billed Treatment Time: 15 Total Billed Treatment 1 visit GT 15' RANJITH ROJAS PT Sep 20, 2019 14:14 POS
[2019-09-20] MEDS ORDERED: RT-ALBUTEROL SULF 2.5 MG/3 ML PRE-MIX VIAL INH PRN (14:15)
--- NOTE | 2019-09-20 14:33 | Anesthesia-General Post-Op ---
General Patient Condition Mental Status/LOC: Same as Preop Cardiovascular: Satisfactory Nausea/Vomiting: Absent Respiratory: Satisfactory Pain: Controlled Complications: Absent Post Op Complications Complications None Follow Up Care/Instructions Patient Instructions None needed. Anesthesia/Patient Condition Patient Condition Patient is doing well, no complaints, stable vital signs, no apparent adverse anesthesia problems. No complications reported per nursing. WIN GRAHAM CRNA Sep 20, 2019 14:33 POS
--- NOTE | 2019-09-20 15:15 | NUR ---
IRF Evaluation Order received to evaluate patient for the ARU. Chart review complete and findings discussed with Dr. Gifford - patient accepted. It is noted patient's primary insurance provider is [employer]; therefore, prior authorization will need to be initiated and approval for admission provided. Met with patient to discuss details related to rehabilitation program. Patient agreeable to required therapy regimen and admission. Will continue to follow. Thank you for this referral. Addendum: 09/20/19 at 1606 by NANDINI Nicolle TORRES Clinical information submitted to [employer]/Manoj Penfield for prior authorization.
[2019-09-20 16:00] VITALS: BP 99/63
[2019-09-20] MEDS: ENOXAPARIN 30 MG/0.3 ML (LOVENOX) SYR SC SCH (20:13)
[2019-09-21] VITALS: BP 100/61
[2019-09-21] MEDS: HYDROcodone/APAP 5 MG/325 MG (LORTAB) TAB PO PRN ×2 (03:45→20:32)
[2019-09-21] MEDS: CATHETER FLUSH 10 ML SYR IV SCH ×3 (03:45→22:08)
[2019-09-21 05:47] LABS: HEMOGLOBIN 7.1 G/DL (11.5-16.0)
[2019-09-21 06:04] LABS: BUN/CREATININE RATIO 15; CALCIUM 7.7 MG/DL (8.5-10.1); CARBON DIOXIDE 23 MMOL/L (21-32); CHLORIDE 105 MMOL/L (98-107); CREATININE SERUM 0.53 MG/DL (0.60-1.30); GFR ESTIMATED > 60; GLUCOSE 86 MG/DL (70-105); POTASSIUM 3.7 MMOL/L (3.6-5.0); SODIUM 135 MMOL/L (135-145)
[2019-09-21] MEDS: RT-ALBUTEROL SULF 2.5 MG/3 ML PRE-MIX VIAL INH SCH ×2 (07:45→20:05)
[2019-09-21 08:00] VITALS: BP 99/64
[2019-09-21] MEDS ORDERED: NS IV 500 ML 500 ML IV SCH (10:58)
[2019-09-21] MEDS ORDERED: HYDROCORTISONE 100 MG/2 ML (Solu-CORTEF) VIAL IV PRN (11:00)
[2019-09-21] MEDS ORDERED: diphenhydrAMINE 50 MG/ML INJ (BENADRYL) IV PRN (11:00)
[2019-09-21] MEDS ORDERED: EPINEPHrine INJECTION 1 MG/ML AMP IM PRN (11:00)
[2019-09-21] MEDS ORDERED: RT-ALBUTEROL SULF 2.5 MG/3 ML PRE-MIX VIAL IH PRN (11:00)
[2019-09-21] MEDS ORDERED: IRON DEXTRAN INJECTION 25 MG in NS (IVPB) 5.75 ML IV NR (11:00)
[2019-09-21] MEDS ORDERED: IRON DEXTRAN INJECTION 1,000 MG in NS (IVPB) 250 ML IV NR (11:15)
--- NOTE | 2019-09-21 11:27 | Physical Therapy Daily Note ---
PT Daily Note-Current Subjective Pt agreeable to ther ex. Reports she just walked to/from the bathroom and does not want to walk right now. Transfers SCALE: Activities may be completed with or without assistive devices. 1-Fwmvhwuztw-wjoznsk completes the activity by him/herself with no assistance from a helper. 5-Set-up or Clean-up Assistance-helper sets up or cleans up; patient completes activity. [place] assists only prior to or following the activity. 4-Supervision or Touching Assistance-helper provides verbal cues and/or touching/steadying and/or contact guard assistance as patient completes activity. Assistance may be provided throughout the activity or intermittently. 3-Partial/Moderate Assistance-helper does LESS THAN HALF the effort. [place] lifts, holds or supports trunk or limbs, but provides less than half the effort. 2-Substantial/Maximal Assistance-helper does MORE THAN HALF the effort. [place] lifts or holds trunk or limbs and provides more than half the effort. 8-Xkwbgdhyj-zisjyb does ALL the effort. Patient does none of the effort to complete the activity. Or, the assistance of 2 or more helpers is required for the patient to complete the activity. If activity was not attempted, code reason: 7-Patient Refused. 9-Not Applicable-not attempted and the patient did not perform the activity be fore the current illness, exacerbation or injury. 10-Not Attempted due to Environmental Limitations-(lack of equipment, weather restraints, etc.). 88-Not Attempted due to Medical Conditions or Safety Concerns. Weight Bearing Right Lower Extremity: Right Weight Bearing/Tolerated Left Lower Extremity: Left Weight Bearing/Tolerated Exercises Supine Ex: Ankle pumps, Quad Set, Glut sets, Heel Slides, Short Arc Quads, Hip abd/add Supine Reps: 12 (B LE for functional strengthening to progress gait and transfers. ) Seated Therapy Exercises: Ankle pumps, Long arc quads, Glut set Seated Reps: 10 (to promote LE strength for functional gait and transfer progression. ) Assessment Current Status: Good Progress Pt tolerates ther ex well. Pt walked prior to PT visit. PT Coding Quality Analyst Goals Coding Quality Analyst Goals PT Mcc Goals Time Frame: Sep 27, 2019 Sit to Lying (QC): 6 Lying-Sitting on Side/Bed(QC): 6 Sit to Stand (QC): 6 Roll Left to Right (QC): 6 Chair/Lla-qh-Xdaat Xfer(QC): 6 Distance: 200' Walk 10 feet (QC): 6 Walk 50ft with 2 Turns (QC): 6 Walk 150 ft (QC): 6 Gait Assistive Device: FWW 4 Steps (QC): 4 (SBA) PT Plan Problem List Problem List: Activity Tolerance, Functional Strength, Safety, Balance, Gait, Transfer, Bed Mobility Treatment/Plan Treatment Plan: Continue Plan of Care (vs TFR to ARU) Treatment Plan: Bed Mobility, Education, Functional Activity Jeanette, Functional Strength, Gait, Safety, Therapeutic Exercise, Transfers Frequency: 11 times per week Estimated Hrs Per Day: .25 hour per day Patient and/or Family Agrees t: Yes Safety Risks/Education Patient Education: Safety Issues Teaching Recipient: Patient Teaching Methods: Discussion Response to Teaching: Reinforcement Needed Discharge Recommendations Therapy Discharge Recommendati: Post Acute PT Time/GCodes Time In: 1105 Time Out: 1128 Total Billed Treatment Time: 23 Total Billed Treatment visit EX 23 VITO COBIAN PT Sep 21, 2019 11:26 POS
--- NOTE | 2019-09-21 13:23 | Progress Note - Hospitalist ---
Subjective HPI/CC On Admission Date Seen by Provider: Sep 21, 2019 Time Seen by Provider: 10:45 Patient is a 68-year-old female with no known medical problems who presented to the emergency department at [facility] due to left hip pain. She reports she fell Wednesday evening. Since then her pain has worsened and she developed left hip swelling. She was unable to walk and her boyfriend had to carry her to and from the bathroom. This morning when it didn't improve she elected to seek care in the emergency department where she was found to have a left hip fracture. She was transferred here for orthopedic surgery evaluation. She states her pain is well-controlled at this time. She has no previous history of fractures. Incidentally she was found to have a sodium of 125. She is on no medications and has no labs available for review of previous sodiums. Subjective/Events-last exam Pt reports doing well. Pain controlled. Does endorse history of anemia. Objective Exam Vital Signs Vital Signs Date Time Temp Pulse Resp B/P (MAP) Pulse Ox O2 Delivery O2 Flow Rate FiO2 09/21/19 08:05 Room Air 09/21/19 08:00 36.6 78 16 99/64 (76) 98 09/20/19 13:40 21 09/19/19 20:00 3 Capillary Refill : Less Than 3 Seconds General Appearance: No Apparent Distress, WD/WN, Thin Respiratory: Lungs Clear, No Respiratory Distress Cardiovascular: Regular Rate, Rhythm, No Murmur Neurologic/Psychiatric: Alert, Oriented x3 Results/Procedures Lab Laboratory Tests 09/21/19 05:30 Patient resulted labs reviewed. Assessment/Plan Assessment and Plan Assess & Plan/Chief Complaint Right hip fracture POD #2 IRU consulted- appropriate candidate for rehab Awaiting insurance authorization Ortho consulted, appreciate recs Continue curent pain regimen PT/OT Anemia, macrocytic Hgb 7.7 Iron deficient Infed ordered Hyponatremia- resolved Improving still, ?beer potomania Tobacco abuse Recommended cessation Not ready to quit Alcohol Use Denies history of withdrawals Diagnosis/Problems Diagnosis/Problems (1) Hip fracture Qualifiers: Encounter type: initial encounter Fracture type: closed Laterality: left Qualified Codes: S72.002A - Fracture of unspecified part of neck of left femur, initial encounter for closed fracture (2) Tobacco abuse Status: Chronic (3) Hyponatremia Status: Acute (4) Macrocytic anemia Status: Chronic Clinical Quality Measures DVT/VTE Risk/Contraindication: Risk Factor Score Per Nursin RFS Level Per Nursing on Admit: 4+=Very High TOÑA LUCAS MD Sep 21, 2019 13:23 POS
--- NOTE | 2019-09-21 15:13 | Occupational Ther Daily Note ---
OT Current Status-Daily Note Subjective Pt seen in bed, present through session. Pt states no pain currently while in bed, states 8/10 pain while in standing as sharp/ shooting pain in R thigh. Pt agreeable to session. Mental Status/Objective Patient Orientation: Normal For Age ADL-Treatment Therapy Code Descriptions/Definitions Functional [place] Measure: 0=Not Assessed/NA 4=Minimal Assistance 1=Total Assistance 5=Supervision or Setup 2=Maximal Assistance 6=Modified [place] 3=Moderate Assistance 7=Complete IndependenceSCALE: Activities may be completed with or without assistive devices. 7-Fdacebrvok-tjrgreq completes the activity by him/herself with no assistance from a helper. 5-Set-up or Clean-up Assistance-helper sets up or cleans up; patient completes activity. [place] assists only prior to or following the activity. 4-Supervision or Touching Assistance-helper provides verbal cues and/or touching/steadying and/or contact guard assistance as patient completes activity. Assistance may be provided throughout the activity or intermittently. 3-Partial/Moderate Assistance-helper does LESS THAN HALF the effort. [place] lifts, holds or supports trunk or limbs, but provides less than half the effort. 2-Substantial/Maximal Assistance-helper does MORE THAN HALF the effort. [place] lifts or holds trunk or limbs and provides more than half the effort. 3-Zwlhqifnl-emgflb does ALL the effort. Patient does none of the effort to complete the activity. Or, the assistance of 2 or more helpers is required for the patient to complete the activity. If activity was not attempted, code reason: 7-Patient Refused. 9-Not Applicable-not attempted and the patient did not perform the activity before the current illness, exacerbation or injury. 10-Not Attempted due to Environmental Limitations-(lack of equipment, weather restraints, etc.). 88-Not Attempted due to Medical Conditions or Safety Concerns. Eating (QC): 6 Other Treatment Pt states no grab bars but sink on R side at home to help lower self down to toilet. Pt agreeable to theraband exercises to focus on UE strengthening. Pt completes 5 theraband exercises (1 set of 10 exercises) while seated in bed. Pt completes with minimal cues for positioning, demonstrates SOB during activity. Pt educated on breathing/ talking techniques during exercise. Pt states she was not SOB during activities prior to fracture, now SOB during activities. Pt demonstrates competency and return demonstrates breathing techniques during exercises. Pt left in bed, call light in reach, all needs met, present. Education OT Patient Education: Correct positioning, Exercise program, Home exercise prog samia, Other (breathing) Teaching Recipient: Patient Teaching Methods: Demonstration, Discussion Response to Teaching: Verbalize Understanding, Return Demonstration OT Short Term Goals Short Term Goals Time Frame: Sep 27, 2019 Eating(FIM): 5 Grooming(FIM): 5 Bathing(FIM): 4 Upper Body Dressing(FIM): 5 Lower Body Dressing(FIM): 4 Toileting(FIM): 4 Transfers (B,C,W/C) (FIM): 5 Toilet/Commode Transfer(FIM): 5 Shower Transfer(FIM): 4 Additional Short Term Goals: 1-Demonstrate ADL Tasks, 2-Verbalize Understanding, 3-ImproveStrength/Jeanette 1=Demonstrate adherence to instructed precautions during ADL tasks. 2=Patient will verbalize/demonstrate understanding of assistive devices/modifications for ADL. 3=Patient will improve strength/tolerance for activity to enable patient to perform ADL's. OT Half-Way Goals Half-Way Goals Time Frame: Oct 04, 2019 Eating (QC): 6 Oral Hygiene (QC): 6 Shower/Bathe Self (QC): 5 Upper Body Dressing (QC): 6 Lower Body Dressing (QC): 6 On/Off Footwear (QC): 6 Toileting Hygiene (QC): 6 Toilet/Commode Transfer (QC): 6 Additional Goals: 1-Demonstrate ADL Tasks, 2-Verbalize Understanding, 3- ImproveStrength/Jeanette 1=Demonstrate adherence to instructed precautions during ADL tasks. 2=Patient will verbalize/demonstrate understanding of assistive devices/modifications for ADL. 3=Patient will improve strength/tolerance for activity to enable patient to perform ADL's. OT Education/Plan Problem List/Assessment Assessment: Decreased Activ Tolerance, Decreased UE Strength, Impaired Funct Balance, Impaired I ADL's, Impaired Self-Care Skills Discharge Recommendations Plan/Recommendations: Continue POC Therapy Discharge Recommendati: Intermittent Supervision, Post Acute OT Treatment Plan/Plan of Care Treatment,Training & Education: Yes Patient would benefit from OT for education, treatment and training to promote i ndependence in ADL's, mobility, safety and/or upper extremity function for ADL's. Plan of Care: ADL Retraining, Functional Mobility, UE Funct Exercise/Act Treatment Duration: Oct 04, 2019 Frequency: 5 times per week Estimated Hrs Per Day: .5 hour per day Agreement: Yes Rehab Potential: Good Time/GCodes Start Time: 14:49 Stop Time: 15:00 Total Time Billed (hr/min): 11 Billed Treatment Time 1, EX (11) LISBETH JIN OTR Sep 21, 2019 15:13 POS
--- NOTE | 2019-09-21 15:41 | Physical Therapy Daily Note ---
PT Daily Note-Current Subjective pt in bed with 2 nurse tech present getting ready to go to bathroom. pt agrees to PT. pt reports no pain at this time. Appearance pt in bed post-tx with call light, room phone, tray table in reach with all needs met at this time. family present in room for treatment Mental Status Patient Orientation: Person, Place, Time, Situation Attachments: SCD's, Polar Pack (2 ice packs), IV Transfers SCALE: Activities may be completed with or without assistive devices. 6-Vykperlrzf-zndqkex completes the activity by him/herself with no assistance from a helper. 5-Set-up or Clean-up Assistance-helper sets up or cleans up; patient completes activity. [place] assists only prior to or following the activity. 4-Supervision or Touching Assistance-helper provides verbal cues and/or touching/steadying and/or contact guard assistance as patient completes activity. Assistance may be provided throughout the activity or intermittently. 3-Partial/Moderate Assistance-helper does LESS THAN HALF the effort. [place] lifts, holds or supports trunk or limbs, but provides less than half the effort. 2-Substantial/Maximal Assistance-helper does MORE THAN HALF the effort. [place] lifts or holds trunk or limbs and provides more than half the effort. 0-Aljyssgov-fpsfhi does ALL the effort. Patient does none of the effort to complete the activity. Or, the assistance of 2 or more helpers is required for the patient to complete the activity. If activity was not attempted, code reason: 7-Patient Refused. 9-Not Applicable-not attempted and the patient did not perform the activity before the current illness, exacerbation or injury. 10-Not Attempted due to Environmental Limitations-(lack of equipment, weather restraints, etc.). 88-Not Attempted due to Medical Conditions or Safety Concerns. Sit to Lying (QC): 3 (Antonina) Sit to Stand (QC): 4 (SBA) Weight Bearing Right Lower Extremity: Right Weight Bearing/Tolerated Left Lower Extremity: Left Weight Bearing/Tolerated Gait Training Does the Patient Walk?: Yes Distance: 50' Walk 10 feet (QC): 4 (SBA) Walk 50 ft with 2 Turns(QC): 4 (SBA) Gait Assistive Device: FWW pt demonstrates slow step through gait pattern. Pt demonstrates briefly leading with the R hip and taking a side step with the R leg during swing which she corrects after verbal cue. Treatments Pt performed bed mobility, transfer training, toilet transfer, skilled ambulation training, and education this date. Assessment Current Status: Good Progress Pt able to bear increased weight through the R LE this session. Pt is independent with bed mobility and requires Antonina getting into bed from EOB only to lift the R LE into the bed. PT Coper Hand Goals Coper Hand Goals PT Coper Hand Goals Time Frame: Sep 27, 2019 Sit to Lying (QC): 6 Lying-Sitting on Side/Bed(QC): 6 Sit to Stand (QC): 6 Roll Left to Right (QC): 6 Chair/Odk-fe-Ceeto Xfer(QC): 6 Distance: 200' Walk 10 feet (QC): 6 Walk 50ft with 2 Turns (QC): 6 Walk 150 ft (QC): 6 Gait Assistive Device: FWW 4 Steps (QC): 4 (SBA) PT Plan Problem List Problem List: Activity Tolerance, Functional Strength, Safety, Balance, Gait, Transfer, Bed Mobility Treatment/Plan Treatment Plan: Continue Plan of Care Treatment Plan: Bed Mobility, Education, Functional Activity Jeanette, Functional Strength, Gait, Safety, Therapeutic Exercise, Transfers Frequency: 11 times per week Estimated Hrs Per Day: .25 hour per day Patient and/or Family Agrees t: Yes Safety Risks/Education Patient Education: Gait Training, Transfer Techniques, Correct Positioning, Safety Issues Time/GCodes Time In: 1510 Time Out: 1530 Total Billed Treatment Time: 20 Total Billed Treatment 1 visit GT 20' GILBERTO CARPENTER PT Sep 21, 2019 15:41 POS
[2019-09-21 16:30] VITALS: BP 133/79
[2019-09-21] MEDS: ENOXAPARIN 30 MG/0.3 ML (LOVENOX) SYR SC SCH (20:28)
[2019-09-22 00:30] VITALS: BP 106/62
[2019-09-22] MEDS: CATHETER FLUSH 10 ML SYR IV SCH ×3 (05:02→21:24)
[2019-09-22] MEDS: RT-ALBUTEROL SULF 2.5 MG/3 ML PRE-MIX VIAL INH SCH ×2 (06:58→18:21)
[2019-09-22 08:00] VITALS: BP 123/75
[2019-09-22 11:37] VITALS: BP 123/75
--- NOTE | 2019-09-22 11:53 | Physical Therapy Daily Note ---
PT Daily Note-Current Subjective pt in bed pre-tx with friend in room. pt agrees to PT. pt with unrated pain in R hip. Patient needs to use the restroom, SBA ambulating to it and she toilets herself. Appearance pt in recliner post-tx with phone, call light, tray table in reach with all needs met at this time. Mental Status Patient Orientation: Person, Place, Time, Situation Attachments: Polar Pack (2 ice pack), IV Transfers SCALE: Activities may be completed with or without assistive devices. 6-Fkqfcesfkh-pyvfcfu completes the activity by him/herself with no assistance from a helper. 5-Set-up or Clean-up Assistance-helper sets up or cleans up; patient completes activity. [place] assists only prior to or following the activity. 4-Supervision or Touching Assistance-helper provides verbal cues and/or touching/steadying and/or contact guard assistance as patient completes activity. Assistance may be provided throughout the activity or intermittently. 3-Partial/Moderate Assistance-helper does LESS THAN HALF the effort. [place] lifts, holds or supports trunk or limbs, but provides less than half the effort. 2-Substantial/Maximal Assistance-helper does MORE THAN HALF the effort. [place] lifts or holds trunk or limbs and provides more than half the effort. 0-Gbjwygjzr-fensnp does ALL the effort. Patient does none of the effort to complete the activity. Or, the assistance of 2 or more helpers is required for the patient to complete the activity. If activity was not attempted, code reason: 7-Patient Refused. 9-Not Applicable-not attempted and the patient did not perform the activity before the current illness, exacerbation or injury. 10-Not Attempted due to Environmental Limitations-(lack of equipment, weather restraints, etc.). 88-Not Attempted due to Medical Conditions or Safety Concerns. Sit to Stand (QC): 4 (SBA) pt supine to EOB SBA Weight Bearing Right Lower Extremity: Right Weight Bearing/Tolerated Left Lower Extremity: Left Weight Bearing/Tolerated Gait Training Distance: 80' Walk 10 feet (QC): 4 (SBA) Walk 50 ft with 2 Turns(QC): 4 (SBA) Gait Assistive Device: FWW pt continues to ambulate slowly but is using a 2 point huber with increased weight bearing on the R LE. Exercises Supine Ex: Ankle pumps, Glut sets Supine Reps: 15 Treatments pt performed bed mobility, transfer training, skilled ambulation training, toileting, functional LE strengthening, and education this date. Assessment Current Status: Good Progress pt callie increased ambulation distance. Pt has decreased overall pain today. pt improving velocity and gait quality. PT Music Artist Goals Music Artist Goals PT Snf Goals Time Frame: Sep 27, 2019 Sit to Lying (QC): 6 Lying-Sitting on Side/Bed(QC): 6 Sit to Stand (QC): 6 Roll Left to Right (QC): 6 Chair/Trk-tp-Alzwz Xfer(QC): 6 Distance: 200' Walk 10 feet (QC): 6 Walk 50ft with 2 Turns (QC): 6 Walk 150 ft (QC): 6 Gait Assistive Device: FWW 4 Steps (QC): 4 (SBA) PT Plan Problem List Problem List: Activity Tolerance, Functional Strength, Safety, Balance, Gait, Transfer, Bed Mobility, ROM Treatment/Plan Treatment Plan: Continue Plan of Care Treatment Plan: Bed Mobility, Education, Functional Activity Jeanette, Functional Strength, Gait, Safety, Therapeutic Exercise, Transfers Frequency: 11 times per week Estimated Hrs Per Day: .25 hour per day Patient and/or Family Agrees t: Yes Safety Risks/Education Patient Education: Gait Training, Transfer Techniques, Correct Positioning, Safety Issues Teaching Recipient: Patient Teaching Methods: Demonstration, Discussion Response to Teaching: Return Demonstration, Reinforcement Needed Time/GCodes Time In: 1111 Time Out: 1126 Total Billed Treatment Time: 15 Total Billed Treatment 1 visit FA RANJITH XAVIER PT Sep 22, 2019 11:53 POS
--- NOTE | 2019-09-22 11:54 | NUR ---
Initial visit by Bargemanbobby Metzger: Pt states she is waiting to find out what her insurance will cover, and where she will have therapy. Engaged in rapport building and introduced Spiritual Care services. No urgent follow up needs reported to department.
--- NOTE | 2019-09-22 11:57 | Occupational Ther Daily Note ---
OT Current Status-Daily Note Subjective Pt sitting in chair, agrees to therapy. Pt reports minimal pain at this time. ADL-Treatment Pt sitting in chair, states she was recently up to restroom and ambulated with PT. Pt instructed in use of AE for LE dressing. Pt doffed socks with SBA using dressing stick, skilled cues for use. Pt donned socks with SBA using sock aid. Educated pt on use of AE for donning pants. Pt states understanding of all education. Pt sitting in chair with needs met after session. Therapy Code Descriptions/Definitions Functional [place] Measure: 0=Not Assessed/NA 4=Minimal Assistance 1=Total Assistance 5=Supervision or Setup 2=Maximal Assistance 6=Modified [place] 3=Moderate Assistance 7=Complete IndependenceSCALE: Activities may be completed with or without assistive devices. 8-Febuhaawyc-bvpdiha completes the activity by him/herself with no assistance from a helper. 5-Set-up or Clean-up Assistance-helper sets up or cleans up; patient completes activity. [place] assists only prior to or following the activity. 4-Supervision or Touching Assistance-helper provides verbal cues and/or touching/steadying and/or contact guard assistance as patient completes activity. Assistance may be provided throughout the activity or intermittently. 3-Partial/Moderate Assistance-helper does LESS THAN HALF the effort. [place] lifts, holds or supports trunk or limbs, but provides less than half the effort. 2-Substantial/Maximal Assistance-helper does MORE THAN HALF the effort. [place] lifts or holds trunk or limbs and provides more than half the effort. 1-Kstajqcwn-qxzwly does ALL the effort. Patient does none of the effort to complete the activity. Or, the assistance of 2 or more helpers is required for the patient to complete the activity. If activity was not attempted, code reason: 7-Patient Refused. 9-Not Applicable-not attempted and the patient did not perform the activity before the current illness, exacerbation or injury. 10-Not Attempted due to Environmental Limitations-(lack of equipment, weather restraints, etc.). 88-Not Attempted due to Medical Conditions or Safety Concerns. footwear QC: 4 Education OT Patient Education: Modified ADL techniques Teaching Recipient: Patient Teaching Methods: Demonstration, Discussion Response to Teaching: Verbalize Understanding, Return Demonstration OT Short Term Goals Short Term Goals Time Frame: Sep 27, 2019 Eating(FIM): 5 Grooming(FIM): 5 Bathing(FIM): 4 Upper Body Dressing(FIM): 5 Lower Body Dressing(FIM): 4 Toileting(FIM): 4 Transfers (B,C,W/C) (FIM): 5 Toilet/Commode Transfer(FIM): 5 Shower Transfer(FIM): 4 Additional Short Term Goals: 1-Demonstrate ADL Tasks, 2-Verbalize Understanding, 3-ImproveStrength/Jeanette 1=Demonstrate adherence to instructed precautions during ADL tasks. 2=Patient will verbalize/demonstrate understanding of assistive devices/modifications for ADL. 3=Patient will improve strength/tolerance for activity to enable patient to perform ADL's. OT Cube Machine Tender Goals [facility] Goals Time Frame: Oct 04, 2019 Eating (QC): 6 Oral Hygiene (QC): 6 Shower/Bathe Self (QC): 5 Upper Body Dressing (QC): 6 Lower Body Dressing (QC): 6 On/Off Footwear (QC): 6 Toileting Hygiene (QC): 6 Toilet/Commode Transfer (QC): 6 Additional Goals: 1-Demonstrate ADL Tasks, 2-Verbalize Understanding, 3-Imp roveStrength/Jeanette 1=Demonstrate adherence to instructed precautions during ADL tasks. 2=Patient will verbalize/demonstrate understanding of assistive devices/modifications for ADL. 3=Patient will improve strength/tolerance for activity to enable patient to perform ADL's. OT Education/Plan Discharge Recommendations Plan/Recommendations: Continue POC Treatment Plan/Plan of Care Patient would benefit from OT for education, treatment and training to promote independence in ADL's, mobility, safety and/or upper extremity function for ADL's. Plan of Care: ADL Retraining, Functional Mobility, UE Funct Exercise/Act Treatment Duration: Oct 04, 2019 Frequency: 5 times per week Estimated Hrs Per Day: .5 hour per day Agreement: Yes Rehab Potential: Good Time/GCodes Start Time: 11:37 Stop Time: 11:50 Total Time Billed (hr/min): 13 Billed Treatment Time 1 visit, ADL(13minutes) MANGO LÓPEZ OT Sep 22, 2019 11:57 POS
--- NOTE | 2019-09-22 13:36 | NUR ---
IRF Received denial for admission from [facility]. According to CM, denial is associated with [facility]. Uniw-dr-omox phone number . If doctor elects to proceed with fblh-sg-bkja, it is to be completed by noon on 09/26. Dr. Ny notified. Addendum: 09/22/19 at 1356 by FEBRUARY Nicolle TORRES Ghun-dr-yxdj process initiated.
--- NOTE | 2019-09-22 14:31 | Physical Therapy Daily Note ---
PT Daily Note-Current Subjective pt in bed pre-t agrees to PT but says she is going back to bed after session. Pt reports 6/10 pain at this time RN notified. Appearance pt in bed post-tx, call light, room phone, tray in reach with all needs met at this time. Spouse present for this session. Mental Status Patient Orientation: Person, Place, Time, Situation Attachments: IV Transfers SCALE: Activities may be completed with or without assistive devices. 0-Rdaxicopcx-lyyyszl completes the activity by him/herself with no assistance from a helper. 5-Set-up or Clean-up Assistance-helper sets up or cleans up; patient completes activity. [place] assists only prior to or following the activity. 4-Supervision or Touching Assistance-helper provides verbal cues and/or touching/steadying and/or contact guard assistance as patient completes activity. Assistance may be provided throughout the activity or intermittently. 3-Partial/Moderate Assistance-helper does LESS THAN HALF the effort. [place] li fts, holds or supports trunk or limbs, but provides less than half the effort. 2-Substantial/Maximal Assistance-helper does MORE THAN HALF the effort. [place] lifts or holds trunk or limbs and provides more than half the effort. 2-Nhpkvnekb-eoirie does ALL the effort. Patient does none of the effort to complete the activity. Or, the assistance of 2 or more helpers is required for the patient to complete the activity. If activity was not attempted, code reason: 7-Patient Refused. 9-Not Applicable-not attempted and the patient did not perform the activity before the current illness, exacerbation or injury. 10-Not Attempted due to Environmental Limitations-(lack of equipment, weather restraints, etc.). 88-Not Attempted due to Medical Conditions or Safety Concerns. Sit to Lying (QC): 3 (Antonina for R leg into bed.) Sit to Stand (QC): 4 (SBA) Weight Bearing Right Lower Extremity: Right Weight Bearing/Tolerated Left Lower Extremity: Left Weight Bearing/Tolerated Gait Training Distance: 60' Walk 10 feet (QC): 4 (SBA) Walk 50 ft with 2 Turns(QC): 4 (SBA) Gait Assistive Device: FWW Pt continues with slow ambulation. Pt with noted lack of TKE on the R LE and keeps the R hip in a flexed position at all times. Treatments pt performed bed mobility, transfer training, skilled ambulation training, and education this date. Assessment Current Status: Fair Progress Pt couldn't ambulate as far as she was able to this morning, Pt reports self limiting secondary to pain. PT Telegraphic Instrument Supervisor Goals Telegraphic Instrument Supervisor Goals PT Telegraphic Instrument Supervisor Goals Time Frame: Sep 27, 2019 Sit to Lying (QC): 6 Lying-Sitting on Side/Bed(QC): 6 Sit to Stand (QC): 6 Roll Left to Right (QC): 6 Chair/Bvj-gi-Frbaq Xfer(QC): 6 Distance: 200' Walk 10 feet (QC): 6 Walk 50ft with 2 Turns (QC): 6 Walk 150 ft (QC): 6 Gait Assistive Device: FWW 4 Steps (QC): 4 (SBA) PT Plan Problem List Problem List: Activity Tolerance, Functional Strength, Safety, Balance, Gait, Transfer, Bed Mobility, ROM Treatment/Plan Treatment Plan: Continue Plan of Care Treatment Plan: Bed Mobility, Education, Functional Activity Jeanette, Functional Strength, Gait, Safety, Therapeutic Exercise, Transfers Frequency: 11 times per week Estimated Hrs Per Day: .25 hour per day Patient and/or Family Agrees t: Yes Safety Risks/Education Patient Education: Gait Training, Transfer Techniques, Correct Positioning, Safety Issues Teaching Recipient: Patient Teaching Methods: Demonstration, Discussion Response to Teaching: Return Demonstration, Reinforcement Needed Time/GCodes Time In: 1409 Time Out: 1421 Total Billed Treatment Time: 12 Total Billed Treatment 1 visit GT 12' RANJITH ROJAS PT Sep 22, 2019 14:31 POS
[2019-09-22] MEDS: DICLOFENAC 1% GEL 100 GM (VOLTAREN) TUBE TOP SCH ×2 (15:02→19:35)
[2019-09-22] MEDS ORDERED: SENNA W/DOCUSATE (SENOKOT S) TABLET PO PRN (15:30)
[2019-09-22] MEDS ORDERED: POLYETHYLENE GLYCOL 17 GM (MIRALAX) PACK PO PRN (15:30)
--- NOTE | 2019-09-22 15:54 | Progress Note - Hospitalist ---
Subjective HPI/CC On Admission Date Seen by Provider: Sep 22, 2019 Time Seen by Provider: 10:15 Patient is a 68-year-old female with no known medical problems who presented to the emergency department at [facility] due to left hip pain. She reports she fell Wednesday evening. Since then her pain has worsened and she developed left hip swelling. She was unable to walk and her boyfriend had to carry her to and from the bathroom. This morning when it didn't improve she elected to seek care in the emergency department where she was found to have a left hip fracture. She was transferred here for orthopedic surgery evaluation. She states her pain is well-controlled at this time. She has no previous history of fractures. Incidentally she was found to have a sodium of 125. She is on no medications and has no labs available for review of previous sodiums. Subjective/Events-last exam Patient reports doing well. Has been to the bathroom and in the chair. Has been doing self-directed therapy band exercises. Objective Exam Vital Signs Vital Signs Date Time Temp Pulse Resp B/P (MAP) Pulse Ox O2 Delivery O2 Flow Rate FiO2 09/22/19 11:37 95 Room Air 09/22/19 11:37 36.6 100 21 09/22/19 08:00 18 123/75 (91) 09/19/19 20:00 3 Capillary Refill : Less Than 3 Seconds General Appearance: No Apparent Distress, WD/WN Respiratory: Lungs Clear, No Respiratory Distress Cardiovascular: Regular Rate, Rhythm, No Murmur Gastrointestinal: Normal Bowel Sounds, Soft Neurologic/Psychiatric: Alert, Oriented x3 Results/Procedures Lab Patient resulted labs reviewed. Assessment/Plan Assessment and Plan Assess & Plan/Chief Complaint Right hip fracture POD #3 IRU consulted- appropriate candidate for rehab, my medical recommendation is for patient to discharge in IRU for intensive therapy to regain functional status Insurance declined IRU stay, Peer to Peer done and I spoke with Dr Hollis (Board Certified FM, declined to provide NPI) who stated pt did not meet criteria for significantly declined functional status and that she likely would not even be approved for skilled benefits. Would also not guarantee home health coverage despite 4 steps in to pt's home and patient's current inability to do steps or ambulate more than 60'. Dr Hollis upheld declination of services previously given. Continue current pain regimen PT/OT Anemia, macrocytic s/p infed Hyponatremia- resolved Tobacco abuse Recommended cessation Not ready to quit Alcohol Use Denies history of withdrawals Constipation Senna added Diagnosis/Problems Diagnosis/Problems (1) Hip fracture Qualifiers: Encounter type: initial encounter Fracture type: closed Laterality: left Qualified Codes: S72.002A - Fracture of unspecified part of neck of left femur, initial encounter for closed fracture (2) Tobacco abuse Status: Chronic (3) Hyponatremia Status: Acute (4) Macrocytic anemia Status: Chronic Clinical Quality Measures DVT/VTE Risk/Contraindication: Risk Factor Score Per Nursin RFS Level Per Nursing on Admit: 4+=Very High TOÑA LUCAS MD Sep 22, 2019 15:54 POS
[2019-09-22 16:09] VITALS: BP 118/74
[2019-09-22] MEDS: ENOXAPARIN 30 MG/0.3 ML (LOVENOX) SYR SC SCH (19:35)
[2019-09-22 23:35] VITALS: BP 153/73
[2019-09-23] MEDS: HYDROcodone/APAP 5 MG/325 MG (LORTAB) TAB PO PRN ×2 (02:07→22:51)
[2019-09-23] MEDS: CATHETER FLUSH 10 ML SYR IV SCH ×4 (05:14→22:28)
[2019-09-23 08:00] VITALS: BP 99/53
[2019-09-23] MEDS: DICLOFENAC 1% GEL 100 GM (VOLTAREN) TUBE TOP SCH ×4 (08:54→19:33)
[2019-09-23] MEDS: RT-ALBUTEROL SULF 2.5 MG/3 ML PRE-MIX VIAL INH SCH ×2 (10:27→19:45)
--- NOTE | 2019-09-23 11:19 | Physical Therapy Daily Note ---
PT Daily Note-Current Subjective States that she is doing okay. Transfers SCALE: Activities may be completed with or without assistive devices. 4-Wignrfnzrr-zshsadl completes the activity by him/herself with no assistance from a helper. 5-Set-up or Clean-up Assistance-helper sets up or cleans up; patient completes a ctivity. [place] assists only prior to or following the activity. 4-Supervision or Touching Assistance-helper provides verbal cues and/or touching/steadying and/or contact guard assistance as patient completes activity. Assistance may be provided throughout the activity or intermittently. 3-Partial/Moderate Assistance-helper does LESS THAN HALF the effort. [place] lifts, holds or supports trunk or limbs, but provides less than half the effort. 2-Substantial/Maximal Assistance-helper does MORE THAN HALF the effort. [place] lifts or holds trunk or limbs and provides more than half the effort. 4-Kbiwvkttp-flbjvc does ALL the effort. Patient does none of the effort to complete the activity. Or, the assistance of 2 or more helpers is required for the patient to complete the activity. If activity was not attempted, code reason: 7-Patient Refused. 9-Not Applicable-not attempted and the patient did not perform the activity before the current illness, exacerbation or injury. 10-Not Attempted due to Environmental Limitations-(lack of equipment, weather restraints, etc.). 88-Not Attempted due to Medical Conditions or Safety Concerns. Transfers (B, C, W/C): 5 Sit to Lying (QC): 5 Sit to Stand (QC): 5 Weight Bearing Right Lower Extremity: Right Weight Bearing/Tolerated Left Lower Extremity: Left Weight Bearing/Tolerated Gait Training Distance: 80' Gait Persons Needed: 1 Gait Assistive Device: FWW Assessment Current Status: Excellent Progress Patient's gait is progressing. PT Care Home Goals Disability Manager Goals PT Care Home Goals Time Frame: Sep 27, 2019 Sit to Lying (QC): 6 Lying-Sitting on Side/Bed(QC): 6 Sit to Stand (QC): 6 Roll Left to Right (QC): 6 Chair/Ubv-ox-Bypne Xfer(QC): 6 Distance: 200' Walk 10 feet (QC): 6 Walk 50ft with 2 Turns (QC): 6 Walk 150 ft (QC): 6 Gait Assistive Device: FWW 4 Steps (QC): 4 (SBA) PT Plan Treatment/Plan Treatment Plan: Continue Plan of Care Treatment Plan: Bed Mobility, Education, Functional Activity Jeanette, Functional Strength, Gait, Safety, Therapeutic Exercise, Transfers Frequency: 11 times per week Estimated Hrs Per Day: .25 hour per day Patient and/or Family Agrees t: Yes Time/GCodes Time In: 1100 Time Out: 1115 Total Billed Treatment Time: 15 Total Billed Treatment 1, GT x 15' NICOLE HOLLOWAY PT Sep 23, 2019 11:19 POS
--- NOTE | 2019-09-23 12:05 | Progress Note - Hospitalist ---
Subjective HPI/CC On Admission Date Seen by Provider: Sep 23, 2019 Time Seen by Provider: 12:02 Patient is a 68-year-old female with no known medical problems who presented to the emergency department at [facility] due to left hip pain. She reports she fell Wednesday evening. Since then her pain has worsened and she developed left hip swelling. She was unable to walk and her boyfriend had to carry her to and from the bathroom. This morning when it didn't improve she elected to seek care in the emergency department where she was found to have a left hip fracture. She was transferred here for orthopedic surgery evaluation. She states her pain is well-controlled at this time. She has no previous history of fractures. Incidentally she was found to have a sodium of 125. She is on no medications and has no labs available for review of previous sodiums. Subjective/Events-last exam Pt reports doing well. Working with therapy. No complaints. Pain controlled. Objective Exam Vital Signs Vital Signs Date Time Temp Pulse Resp B/P (MAP) Pulse Ox O2 Delivery O2 Flow Rate FiO2 09/23/19 10:28 98 Room Air 09/23/19 08:00 36.9 72 16 99/53 (68) 09/22/19 11:37 21 09/19/19 20:00 3 Capillary Refill : Less Than 3 Seconds General Appearance: No Apparent Distress, WD/WN, Thin Respiratory: Lungs Clear, No Respiratory Distress Cardiovascular: Regular Rate, Rhythm, No Murmur Results/Procedures Lab Patient resulted labs reviewed. Assessment/Plan Assessment and Plan Assess & Plan/Chief Complaint Right hip fracture POD #4 IRU consulted- appropriate candidate for rehab, my medical recommendation is for patient to discharge in IRU for intensive therapy to regain functional status Insurance declined IRU stay Continue current pain regimen PT/OT Anemia, macrocytic- likely due to alcohol s/p infed Hyponatremia- resolved Tobacco abuse Recommended cessation Not ready to quit Alcohol Use Denies history of withdrawals Constipation Senna and Miralax Diagnosis/Problems Diagnosis/Problems (1) Hip fracture Qualifiers: Encounter type: initial encounter Fracture type: closed Laterality: left Qualified Codes: S72.002A - Fracture of unspecified part of neck of left femur, initial encounter for closed fracture (2) Tobacco abuse Status: Chronic (3) Hyponatremia Status: Acute (4) Macrocytic anemia Status: Chronic Clinical Quality Measures DVT/VTE Risk/Contraindication: Risk Factor Score Per Nursin RFS Level Per Nursing on Admit: 4+=Very High TOÑA LUCAS MD Sep 23, 2019 12:05 POS
[2019-09-23 16:25] VITALS: BP 120/55
[2019-09-23] MEDS: ENOXAPARIN 30 MG/0.3 ML (LOVENOX) SYR SC SCH (19:33)
[2019-09-24 00:45] VITALS: BP 94/56
[2019-09-24] MEDS: CATHETER FLUSH 10 ML SYR IV SCH ×3 (05:20→22:36)
[2019-09-24 06:06] LABS: HEMOGLOBIN 7.5 G/DL (11.5-16.0); MEAN PLATELET VOLUME 10.5 FL (7.4-10.4); RED CELL DISTRIBUTION WIDTH 12.5 % (10.0-14.5); WHITE BLOOD COUNT 5.6 10^3/uL (4.3-11.0)
[2019-09-24 06:37] LABS: BUN/CREATININE RATIO 13; CALCIUM 8.6 MG/DL (8.5-10.1); CARBON DIOXIDE 22 MMOL/L (21-32); CHLORIDE 103 MMOL/L (98-107); CREATININE SERUM 0.52 MG/DL (0.60-1.30); GFR ESTIMATED > 60; GLUCOSE 74 MG/DL (70-105); POTASSIUM 3.8 MMOL/L (3.6-5.0); SODIUM 137 MMOL/L (135-145)
[2019-09-24 08:00] VITALS: BP 108/56
[2019-09-24] MEDS: RT-ALBUTEROL SULF 2.5 MG/3 ML PRE-MIX VIAL INH SCH ×2 (08:20→20:32)
[2019-09-24] MEDS: DICLOFENAC 1% GEL 100 GM (VOLTAREN) TUBE TOP SCH ×4 (08:53→20:36)
--- NOTE | 2019-09-24 11:53 | Progress Note - Hospitalist ---
Subjective HPI/CC On Admission Date Seen by Provider: Sep 24, 2019 Time Seen by Provider: 11:51 Patient is a 68-year-old female with no known medical problems who presented to the emergency department at [facility] due to left hip pain. She reports she fell Wednesday evening. Since then her pain has worsened and she developed left hip swelling. She was unable to walk and her boyfriend had to carry her to and from the bathroom. This morning when it didn't improve she elected to seek care in the emergency department where she was found to have a left hip fracture. She was transferred here for orthopedic surgery evaluation. She states her pain is well-controlled at this time. She has no previous history of fractures. Incidentally she was found to have a sodium of 125. She is on no medications and has no labs available for review of previous sodiums. Subjective/Events-last exam Patient reports doing well. Pain controlled. Hopeful to work with physical therapy. Objective Exam Vital Signs Vital Signs Date Time Temp Pulse Resp B/P (MAP) Pulse Ox O2 Delivery O2 Flow Rate FiO2 09/24/19 08:20 96 Room Air 09/24/19 08:00 37.0 96 20 108/56 (73) 09/22/19 11:37 21 09/19/19 20:00 3 Capillary Refill : Less Than 3 Seconds General Appearance: No Apparent Distress, Thin Respiratory: Lungs Clear, No Respiratory Distress Cardiovascular: Regular Rate, Rhythm Gastrointestinal: Normal Bowel Sounds, Soft Neurologic/Psychiatric: Alert, Oriented x3, Normal Mood/Affect Results/Procedures Lab Laboratory Tests 09/24/19 05:19 Patient resulted labs reviewed. Assessment/Plan Assessment and Plan Assess & Plan/Chief Complaint Right hip fracture POD #5 IRU consulted- appropriate candidate for rehab, my medical recommendation is for patient to discharge in IRU for intensive therapy to regain functional status Insurance denied IRU stay Continue current pain regimen PT/OT Will need home health when DC-ed Anemia, macrocytic- likely due to alcohol s/p infed Hyponatremia- resolved Tobacco abuse Recommended cessation Not ready to quit Alcohol Use Denies history of withdrawals Constipation Senna and Miralax Diagnosis/Problems Diagnosis/Problems (1) Hip fracture Qualifiers: Encounter type: initial encounter Fracture type: closed Laterality: left Qualified Codes: S72.002A - Fracture of unspecified part of neck of left femur, initial encounter for closed fracture (2) Tobacco abuse Status: Chronic (3) Hyponatremia Status: Acute (4) Macrocytic anemia Status: Chronic Clinical Quality Measures DVT/VTE Risk/Contraindication: Risk Factor Score Per Nursin RFS Level Per Nursing on Admit: 4+=Very High TOÑA LUCAS MD Sep 24, 2019 11:53 am POS
[2019-09-24 16:00] VITALS: BP 93/54
[2019-09-24] MEDS: ENOXAPARIN 30 MG/0.3 ML (LOVENOX) SYR SC SCH (20:35)
[2019-09-25 00:20] VITALS: BP 106/72
[2019-09-25] MEDS: CATHETER FLUSH 10 ML SYR IV SCH (05:45)
[2019-09-25 08:00] VITALS: BP 99/62
[2019-09-25] MEDS: RT-ALBUTEROL SULF 2.5 MG/3 ML PRE-MIX VIAL INH SCH (08:45)
[2019-09-25] MEDS: DICLOFENAC 1% GEL 100 GM (VOLTAREN) TUBE TOP SCH (08:53)
--- NOTE | 2019-09-25 10:13 | Physical Therapy Daily Note ---
PT Daily Note-Current Subjective Patient agrees to PT at this time. Patient states that her only concern before going home is stairs. Once she accomplished stairs, expressed that she wished to go home soon. Pain Numeric Pain Scale: 2 Location: Right Location Body Site: Hip Pain Description: Acute Mental Status Patient Orientation: Normal For Age Transfers SCALE: Activities may be completed with or without assistive devices. 0-Lmtskhnmmk-aodsjmv completes the activity by him/herself with no assistance from a helper. 5-Set-up or Clean-up Assistance-helper sets up or cleans up; patient completes activity. [place] assists only prior to or following the activity. 4-Supervision or Touching Assistance-helper provides verbal cues and/or touching/steadying and/or contact guard assistance as patient completes activity. Assistance may be provided throughout the activity or intermittently. 3-Partial/Moderate Assistance-helper does LESS THAN HALF the effort. [place] lifts, holds or supports trunk or limbs, but provides less than half the effort. 2-Substantial/Maximal Assistance-helper does MORE THAN HALF the effort. [place] lifts or holds trunk or limbs and provides more than half the effort. 7-Gcjczheqg-zuhspe does ALL the effort. Patient does none of the effort to complete the activity. Or, the assistance of 2 or more helpers is required for the patient to complete the activity. If activity was not attempted, code reason: 7-Patient Refused. 9-Not Applicable-not attempted and the patient did not perform the activity before the current illness, exacerbation or injury. 10-Not Attempted due to Environmental Limitations-(lack of equipment, weather restraints, etc.). 88-Not Attempted due to Medical Conditions or Safety Concerns. Transfers (B, C, W/C): 5 Roll Left to Right (QC): 5 Sit to Lying (QC): 5 Sit to Stand (QC): 5 Weight Bearing Right Lower Extremity: Right Weight Bearing/Tolerated Left Lower Extremity: Left Weight Bearing/Tolerated Gait Training Does the Patient Walk?: Yes Gait: 5 Distance: 200' Walk 10 feet (QC): 5 Walk 50 ft with 2 Turns(QC): 5 Walk 150 ft (QC): 5 Gait Assistive Device: FWW Slightly antalgic gait Stair Training Stair Training: Handrails/: 2 handrails #of Steps: 4 1 Step (curb) (QC): 5 4 Steps (QC): 5 Stairs: Pattern: Step to Initially required cues for stepping pattern but did not require reminders or assistance during stairs. Exercises Supine Ex: Ankle pumps, Heel Slides Supine Reps: 10 Assessment Patient performed bed mobility without assistance. Patient stood and ambulated 200' with FWW without assistance. Patient performed 4 stairs with education of stepping pattern but needing no reminders or assistance during performance. Patient told to be up ad jose with walker to improve mobility. PT Fpc Goals Laborer [facility] Goals PT Lab[facility] Goals Time Frame: Sep 27, 2019 Sit to Lying (QC): 6 Lying-Sitting on Side/Bed(QC): 6 Sit to Stand (QC): 6 Roll Left to Right (QC): 6 Chair/Vkj-nq-Ojtby Xfer(QC): 6 Distance: 200' Walk 10 feet (QC): 6 Walk 50ft with 2 Turns (QC): 6 Walk 150 ft (QC): 6 Gait Assistive Device: FWW 4 Steps (QC): 4 (SBA) PT Plan Treatment/Plan Treatment Plan: Continue Plan of Care, Discontinue PT (patient dismissing to home on this date with home health per Dr. Rudolph) Treatment Plan: Bed Mobility, Education, Functional Activity Jeanette, Functional Strength, Gait, Safety, Therapeutic Exercise, Transfers Frequency: 11 times per week Estimated Hrs Per Day: .25 hour per day Patient and/or Family Agrees t: Yes Safety Risks/Education Patient Education: Steps Teaching Recipient: Patient Teaching Methods: Demonstration, Discussion Response to Teaching: Verbalize Understanding, Return Demonstration Time/GCodes Time In: 827 Time Out: 850 Total Billed Treatment Time: 23 Total Billed Treatment 1 visit FA x2 23min GILBERTO CARPENTER PT Sep 25, 2019 10:13 POS
--- NOTE | 2019-09-25 12:04 | Discharge Summary ---
Discharge Summary Reconcile Patient Problems Problems Reviewed?: Yes Instructions for Patient [facility] [employer], Assessment/Instructions Take medications as prescribed. Follow up with Dr. Jay. Physician to follow Patient: Pierre Discharge Diet for Home: No Restrictions Hospital Course Date of Admission: Sep 18, 2019 at 14:38 Admission Diagnosis : Hip fracture Family Physician/Provider: Oswald Jay MD Date of Discharge: 09/25/19 Discharge Diagnosis: Hip fracture Hospital Course: Lia Lewis is a 68yoF who presented with a ground level fall and was admitted with a hip fracture. Ortho was consulted and she underwent surgery. Her postoperative course was complicated by iron deficiency anemia. She was started on iron supplementation. She was evaluated and accepted by inpatient rehabilitation, but her insurance denied her stay. She was discharged home with home health for ongoing therapy. Labs and Pending Lab Test: Microbiology 09/18/19 MRSA Screen - Final, Complete MRSA not isolated Home Meds Active Reported Aleve (Naproxen Sodium) 220 Mg Tablet 220 Mg PO Q8H PRN Consulations Ortho Patient Allergies: Coded Allergies: No Known Drug Allergies (Unverified , 09/18/19) Height (Feet): 5 Height (Inches): 3.00 Weight (Pounds): 105 Home Health Need/Face to Face Date of Face to Face: Sep 25, 2019 Clinical Findings: Generalized weakness and fatigue, Instability, Muscle weakness, Pain with ambulation I have seen Pt zchv-xw-mlbl: Yes Discharged To: Home Diagnosis/Conditions: Hip fracture Patient is Homebound due to: Raisa fall risk due to instabilty, Muscle w eakness, Pain w/ambulation Homebound Status Due to the above stated illness, injury or surgical procedure (medical condition or diagnosis) and associated clinical findings, the patient is homebound because of his/her inability to leave home except with aid of a supportive device and/or person AND leaving the home requires a considerable and taxing effort or is medically contraindicated. Pt req the following assistanc: Aid of another person, Walker Home Health Nursing Orders Home Health Services Order: Nursing Services, Relish Maker-Evaluate & Treat, Physical Therapy-Evaluate & Treat Therapy Orders Therapy Orders: OT (must have SN or PT order), Physical Therapy Therapy Specific Orders: Eval assistive deivces, Teach strategies/cognitive deficits, Teach enviro modifications/safety, Gait training, Increase strength/endurance Certify Stmt I certify that this patient is under my care and that I, a nurse practitioner or a physician; a insurance assistant working with me, had a face to face encounter that - meets the physician face to face encounter requirements with this patient as dated. Discharge Physical Exam General: Alert, Oriented X3, Cooperative, No Acute Distress HEENT: Atraumatic, EOMI, Mucous Memb Moist/Bonnie Lungs: Clear to Auscultation, Normal Air Movement Heart: Regular Rate, Normal S1, Normal S2, No Murmurs Abdomen: Normal Bowel Sounds, Soft, No Tenderness Extremities: No Edema, No Tenderness/Swelling Skin: No Rashes, No Significant Lesion Psych/Mental Status: Mental Status NL, Mood NL CAROLA ALLEN MD Sep 25, 2019 12:04 POS
[2019-09-25] MEDS ORDERED: FERR325T18 PO (12:12)
--- NOTE | 2019-09-25 13:21 | NUR ---
CM/SS spoke with the patient to asses needs upon discharge. Plan: The patient plans to return home with [facility] ([phone]). A choice form was signed and completed. CM/SS sent finalized discharge and medical history to [facility]. DME: The patient stated that she already has a wheelchair at home and there were no other medical equipment needs at this time. Summary: The patient stated that she lives with her partner at home. The patient's partner has been working on the house to make it easier for the patient to ambulate around. The patient didn't express any other needs at this time. Addendum: 09/25/19 at 1507 by GILMAR CENTENO SANDRA social work student note reviewed and approved
--- NOTE | 2019-09-25 14:28 | NUR ---
RD ASSESSMENT PMHx: no significant PMHx PT INTERACTION: Pt was awake and pleasant during nutrition assessment for length of stay. Pt states current appetite is pretty good. Note pt avg PO intake of >75% x7d, per chart review. Pt states following a regular diet at home and currently having no issues with chewing/swallowing food. Pt states no recent issues with n/v at this time. Pt states some recent issues with constipation. Note last BM was 09/24 and pt currently on bowel regimen of senna, miralax, per chart review. Pt states some recent wt changes, "I've lost some, but it's not much." Pt states UBW of 110#. Note unable to determine recent wt hx, per chart review. ABNORMAL NUTRITION-RELATED LAB VALUES: cr 0.52 (L) Est. kcal needs: 9442-5611 kcal (25-30 kcal/kg) Est. Pro needs: 48-57 g Pro (1.0-1.2 g Pro/kg) PES STATEMENT: Given pt's PO intake, no nutrition diagnosis at this time (NO-1.1) INTERVENTION: Continue with current diet order of Regular diet. MONITOR/EVALUATE: PO Intake; Plan of Care; Hydration Status; Weight Status; Lab Values Sylvia Sanchez, MS, RD, LD
--- NOTE | 2019-09-25 14:55 | NUR ---
Important Message from Medicare presented, reviewed, signed and placed in patient chart. Patient voiced no intention to appeal and deny any needs or further questions at this time. Patient is dressed, packed and ready to go home today.
[2019-09-25 15:08] VITALS: BP 99/62
--- NOTE | 2019-09-25 15:22 | NUR ---
[facility] Declined the patient due to being out of coverage range. CM/SS informed the client and that referral information would be sent to [facility]. CM/SS called [facility] and informed them on the patient's needs and faxed finalized orders. Addendum: 09/26/19 at 0758 by GILMAR CENTENO SANDRA social work student note reviewed and approved
== END 2019-09-25 15:05 | disposition home health service (06) | DRG 481 ==
LOC: 4TH 14:38
PROVIDERS: ADMIT Family Medicine; ATTEND Family Medicine
PROC: 0QS636Z Reposition Right Upper Femur with Intramedullary Internal Fixation Device, Percutaneous Approach (ICD-10-PCS; principal; 2019-09-19 18:08)
DX: S72.141A Displaced intertrochanteric fracture of right femur, initial encounter for closed fracture (principal); E87.1 Hypo-osmolality and hyponatremia; F17.210 Nicotine dependence, cigarettes, uncomplicated; D50.9 Iron deficiency anemia, unspecified; K59.00 Constipation, unspecified; D64.89 Other specified anemias; W19.XXXA Unspecified fall, initial encounter; Y92.009 Unspecified place in unspecified non-institutional (private) residence as the place of occurrence of the external cause; F10.10 Alcohol abuse, uncomplicated; Z23 Encounter for immunization
CPT/HCPCS: 36415; 80048; 82728; 83540; 85014; 85018; 85025; 85027; 85610; 87081; 94640; 94664; 94760

== ENCOUNTER → 2021-01-02 | Outpatient (CLI) | payer MEDICARE ==
[~2021-01-02] MED LIST changes: +FERR325T18 PO; +NAPR220T66 PO
--- NOTE | 2021-01-02 14:39 | Diagnostic Imaging Report ---
PROCEDURE: MRI lumbar spine. TECHNIQUE: Multiplanar, multisequence MRI of the lumbar spine was performed without contrast. INDICATION: Back pain status post injury. COMPARISON: None FINDINGS: For the purposes of this exam, last well-formed disc space is denoted to be the L5-S1 level. Static alignment is maintained. There is no significant seth- or retrolisthesis. There is no evidence of jumped facets. There is chronic height loss of the T12 and L4 vertebral bodies. Schmorl's node is also noted within the superior endplate of T12 with mild surrounding edema. There is also compression deformity of the L5 vertebral body and moderate abnormal T1 signal loss. There is also slight edema on the T2 fat saturation sequence. Findings are consistent with probable subacute fracture. As a result, there is greater than 70% vertebral body height loss. This primarily involves the superior endplate. There is mild buckling of the superior margins of the posterior vertebral body wall. There is mild multilevel intervertebral disc height loss as well as mild multilevel anterior and posterior disc bulging. Visualized portions of the distal cord are unremarkable. Conus terminates at the L1 level. No abnormal intrathecal filling defects are seen. Pre and paravertebral soft tissue structures are unremarkable. Axial images demonstrate the following: T11-T12: There is broad-based posterior disc bulge and chronic bulging of the superior margin of the posterior vertebral body wall. This does result in mild narrowing of the spinal canal. Bilateral neural foramen are unremarkable. T12-L1: There is broad-based posterior disc bulge. This does result in mild narrowing of the spinal canal. Bilateral neural foramen are unremarkable. L1-L2: There is no large disc bulge or focal protrusion. There is bilateral facet arthropathy. There is no significant spinal canal or neuroforaminal stenosis. L2-L3: There is broad-based posterior disc bulge and bilateral ligamentum flavum laxity and facet arthropathy. As a result, there is moderate narrowing of the spinal canal and mild narrowing of the bilateral neural foramen. L3-L4: There is broad-based posterior disc bulge and bilateral ligamentum flavum laxity and facet arthropathy. As a result, there is hthnklrb-lj-wezskd spinal canal stenosis. Thecal sac is narrowed approximately 5-6 mm in AP dimension. There is also mild stenosis of the bilateral neural foramen. L4-L5: There is broad-based posterior disc bulge and prominent bilateral facet arthropathy and ligamentum flavum laxity. As a result, there is severe spinal canal stenosis. Thecal sac is narrowed to 4 mm in AP dimension. There is also moderate stenosis of the bilateral neural foramen. L5-S1: There is bilateral facet arthropathy. There is no large disc bulge or focal protrusion. There is no significant spinal canal or neuroforaminal stenosis. IMPRESSION: 1. Acute versus subacute fracture of the L5 vertebral body. 2. Multiple nonacute fractures of T12 and L4. 3. Multilevel degenerative changes as described above. Dictated by: Dictated on workstation # [id number]
== END ==
LOC: RAD 13:26
PROVIDERS: ATTEND Physician Assistant
DX: M48.54XA Collapsed vertebra, not elsewhere classified, thoracic region, initial encounter for fracture (principal); M48.56XA Collapsed vertebra, not elsewhere classified, lumbar region, initial encounter for fracture; M47.816 Spondylosis without myelopathy or radiculopathy, lumbar region; M51.24 Other intervertebral disc displacement, thoracic region; M51.25 Other intervertebral disc displacement, thoracolumbar region; M51.26 Other intervertebral disc displacement, lumbar region; M48.04 Spinal stenosis, thoracic region; M48.05 Spinal stenosis, thoracolumbar region; M48.061 Spinal stenosis, lumbar region without neurogenic claudication
CPT/HCPCS: 72148

== ENCOUNTER 2021-06-19 05:22 | Inpatient (IN) | payer MEDICARE ==
[~2021-06-19] VITALS: Ht 155 cm; Wt 47.4 kg
[2021-06-19] VITALS (13 sets, daily range): BP systolic 87–113; BP diastolic 52–76
[2021-06-19] MEDS ORDERED: FAMOTIDINE 20MG/2ML IV (PEPCID) IVP ONE (06:00)
[2021-06-19] MEDS ORDERED: LACTATED RINGERS 1,000 ML IV ONE ×2 (06:00→12:15)
[2021-06-19] MEDS ORDERED: ONDANSETRON 4 MG/2 ML (SDV) Z0FRAN IVP ONE (06:00)
--- NOTE | 2021-06-19 06:05 | ED General ---
General Chief Complaint: Rect Problems Stated Complaint: NAUSEA,DEHYDRATION,BLOOD IN STOOLS Nursing Triage Note: PATIENT STATES BLOODY STOOL THIS MORNING X3, STATES SOB WITH ABMULATION X2 DAYS Source of Information: Patient, EMS Exam Limitations: No Limitations (MOISES REYES MD) History of Present Illness Date Seen by Provider: Jun 19, 2021 Time Seen by Provider: 05:24 Initial Comments This is 70-year-old woman presents to the emergency room with cough and shortness of breath that started 2 days ago. This morning she began having bloody diarrhea, nausea, and vomiting. She is afebrile. She is quite weak. She was vaccinated for Covid 19. She denies use of blood thinning medications. She complains of generalized aching and increased sciatic pain and pain in her hips with this illness. Shortness of breath is worse with exertion. (MOISES REYES MD) Allergies and Home Medications Allergies Coded Allergies: No Known Drug Allergies (Unverified , 09/18/19) Home Medications Ferrous Sulfate 325 Mg Tablet, 325 MG PO DAILY Prescribed by: CAROLA ALLEN on 09/25/19 1212 Naproxen Sodium 220 Mg Tablet, 220 MG PO Q8H PRN for PAIN-MILD, (Reported) Patient Home Medication List Home Medication List Reviewed: Yes (MOISES REYES MD) Review of Systems Review of Systems Constitutional: see HPI EENTM: no symptoms reported Respiratory: see HPI Cardiovascular: no symptoms reported Gastrointestinal: see HPI Genitourinary: no symptoms reported : No Musculoskeletal: see HPI Skin: no symptoms reported Psychiatric/Neurological: No Symptoms Reported Hematologic/Lymphatic: No Symptoms Reported Immunological/Allergic: no symptoms reported (MOISES REYES MD) Past Yjlzezu-Clwdgy-Oycvot Hx Patient Social History Tobacco Use?: Yes Tobacco type used: Cigarettes Alcohol Use?: Yes Alcohol Frequency: Daily (MOISES REYES MD) Past Medical History Surgeries: Yes Breast, Orthopedic Cardiac: No Neurological: No : No Reproductive Disorders: No Genitourinary: No Endocrine: No HEENT: No Cancer: No Psychosocial: No (MOISES REYES MD) Family Medical History No Pertinent Family Hx (MOISES REYES MD) Physical Exam Vital Signs Vital Signs - First Documented 06/19/21 05:28 Temp 35.9 Pulse 94 Resp 20 B/P (MAP) 98/76 (83) Pulse Ox 97 O2 Delivery Room Air (OMID MINER) Vital Signs Capillary Refill : Less Than 3 Seconds (MOISES REYES MD) Height, Weight, BMI Height: 5'3.00" Weight: 105lbs. oz. [id number]; 18.00 BMI Method:Stated General Appearance: WD/WN, Mild Distress, Thin HEENT: PERRL/EOMI, Normal ENT Inspection, Other (Moist mucous membranes) Neck: Normal Inspection Respiratory: Lungs Clear, Normal Breath Sounds, No Accessory Muscle Use, No Respiratory Distress Cardiovascular: Regular Rate, Rhythm, No Edema, No Murmur Gastrointestinal: Normal Bowel Sounds, Non Tender, Soft; No Distended Rectal: Other (Dark blood at the anus) Extremity: Normal Inspection, No Pedal Edema Neurologic/Psychiatric: Alert, Oriented x3, No Motor/Sensory Deficits, Normal Mood/Affect, clarity specialists II-XII Norm as Tested Skin: Warm/Dry, Ecchymosis (MOISES REYES MD) Progress/Results/Core Measures Suspected Sepsis SIRS Temperature: Pulse: 94 Respiratory Rate: 20 Blood Pressure 98 /76 Mean: 83 (MOISES REYES MD) Results/Orders Lab Results Laboratory Tests Test 06/19/21 05:56 06/19/21 07:06 06/19/21 07:47 Range/Units White Blood Count 13.9 H 4.3-11.0 10^3/uL Red Blood Count 2.46 L 3.80-5.11 10^6/uL Hemoglobin 8.6 L 11.5-16.0 g/dL Hematocrit 25 L 35-52 % Mean Corpuscular Volume 100 H 80-99 fL Mean Corpuscular Hemoglobin 35 H 25-34 pg Mean Corpuscular Hemoglobin Concent 35 32-36 g/dL Red Cell Distribution Width 12.3 10.0-14.5 % Platelet Count 258 130-400 10^3/uL Mean Platelet Volume 10.9 9.0-12.2 fL Immature Granulocyte % (Auto) 1 % Neutrophils (%) (Auto) 83 H 42-75 % Lymphocytes (%) (Auto) 10 L 12-44 % Monocytes (%) (Auto) 6 0-12 % Eosinophils (%) (Auto) 0 0-10 % Basophils (%) (Auto) 0 0-10 % Neutrophils # (Auto) 11.6 H 1.8-7.8 10^3/uL Lymphocytes # (Auto) 1.4 1.0-4.0 10^3/uL Monocytes # (Auto) 0.8 0.0-1.0 10^3/uL Eosinophils # (Auto) 0.0 0.0-0.3 10^3/uL Basophils # (Auto) 0.0 0.0-0.1 10^3/uL Immature Granulocyte # (Auto) 0.1 0.0-0.1 10^3/uL Prothrombin Time 12.1 L 12.2-14.7 SEC INR Comment 0.9 0.8-1.4 Activated Partial Thromboplast Time 24 24-35 SEC Sodium Level 131 L 135-145 MMOL/L Potassium Level 3.7 3.6-5.0 MMOL/L Chloride Level 96 L 98-107 MMOL/L Carbon Dioxide Level 24 21-32 MMOL/L Anion Gap 11 5-14 MMOL/L Blood Urea Nitrogen 23 H 7-18 MG/DL Creatinine 0.52 L 0.60-1.30 MG/DL Estimat Glomerular Filtration Rate 117 BUN/Creatinine Ratio 44 Glucose Level 96 70-105 MG/DL Calcium Level 8.3 L 8.5-10.1 MG/DL Corrected Calcium 8.9 8.5-10.1 MG/DL Magnesium Level 1.7 1.6-2.4 MG/DL Total Bilirubin 0.2 0.1-1.0 MG/DL Aspartate Amino Transf (AST/SGOT) 19 5-34 U/L Alanine Aminotransferase (ALT/SGPT) 18 0-55 U/L Alkaline Phosphatase 149 H 40-136 U/L C-Reactive Protein High Sensitivity 0.78 H 0.00-0.50 MG/DL Total Protein 5.5 L 6.4-8.2 GM/DL Albumin 3.3 3.2-4.5 GM/DL Lipase 17 8-78 U/L Influenza Type A (RT-PCR) Not Detected Not Detecte Influenza Type B (RT-PCR) Not Detected Not Detecte SARS-CoV-2 RNA (RT-PCR) Not Detected Not Detecte Urine Color YELLOW Urine Clarity CLEAR Urine pH 6.0 5-9 Urine Specific [place] 1.010 L 1.016-1.022 Urine Protein NEGATIVE NEGATIVE Urine Glucose (UA) NEGATIVE NEGATIVE Urine Ketones NEGATIVE NEGATIVE Urine Nitrite POSITIVE H NEGATIVE Urine Bilirubin NEGATIVE NEGATIVE Urine Urobilinogen 0.2 < = 1.0 MG/DL Urine Leukocyte Esterase TRACE H NEGATIVE Urine RBC (Auto) NEGATIVE NEGATIVE Urine RBC NONE /HPF Urine WBC 2-5 /HPF Urine Squamous Epithelial Cells 2-5 /HPF Urine Crystals NONE /LPF Urine Bacteria MODERATE H /HPF Urine Casts NONE /LPF Urine Mucus NEGATIVE /LPF Urine Culture Indicated YES (OMID MINER) My Orders Orders - OMID MINER Covid 19 Inhouse Test (06/19/21 07:06) Influenza A And B By Pcr (06/19/21 07:06) Fentanyl Inj (Sublimaze Injection) (06/19/21 09:15) Orthostatic Vital Signs (Adult (06/19/21 09:12) Pantoprazole Injection (Protonix Injecti (06/19/21 09:15) Ceftriaxone (Rocephin) (06/19/21 09:30) (OMID MINER) Medications Given in ED Current Medications Medications Dose Ordered Sig/Kamryn Route Start Time Stop Time Status Last Admin Dose Admin Ceftriaxone Sodium 1000 mg/ Sterile Water 10 ml @ 200 mls/hr ONCE ONCE IV 06/19/21 09:30 06/19/21 09:32 DC 06/19/21 09:26 200 MLS/HR Famotidine 20 mg ONCE ONCE IVP 06/19/21 06:00 06/19/21 06:01 DC 06/19/21 06:20 20 MG Fentanyl Citrate 50 mcg ONCE ONCE IVP 06/19/21 09:15 06/19/21 09:16 DC 06/19/21 09:25 50 MCG Lactated Ringer's 1,000 ml @ 0 mls/hr Q0M ONCE IV 06/19/21 06:00 06/19/21 06:01 DC 06/19/21 06:20 1,000 MLS/HR Ondansetron HCl 8 mg ONCE ONCE IVP 06/19/21 06:00 06/19/21 06:01 DC 06/19/21 06:20 8 MG Pantoprazole 40 mg ONCE ONCE IV 06/19/21 09:15 06/19/21 09:16 DC 06/19/21 09:25 40 MG (OMID MINER) Vital Signs/I&O 06/19/21 06/19/21 05:28 09:54 Temp 35.9 Pulse 94 68 83 82 Resp 20 B/P (MAP) 98/76 (83) 87/59 (68) 101/71 (81) 88/76 (80) Pulse Ox 97 O2 Delivery Room Air (OMID MINER) Vital Signs/I&O Capillary Refill : Less Than 3 Seconds (MOISES REYES MD) Blood Pressure Mean: 83 Progress Note : Time: 06:11 Progress Note Patient is receiving IV fluids and Zofran. Labs are pending. There was gross blood at the anus. Patient is very weak and not even able to roll over in bed. (MOISES REYES MD) Progress Note #1: Time: 09:18 Progress Note Patient's hemoglobin is 8.6 after having 3 episodes of bright red blood around her stool. She been using ibuprofen routinely for the past 2 weeks for her sciatic pain. She has an appointment today for an injection with Dr. Osborne. I suspect she has developed a GI bleed. Her last hemoglobin from 2019 was anywhere from 7-9 related to a hip surgery. This seems to be her baseline for hemoglobin. She is not having any chest pain. She says she can get up and walk but that is related to her sciatic nerve pain so organ to give her a little fentanyl and Rocephin for her UTI and try some orthostatics to see if she is getting lightheaded after a liter of fluids were given. Based on these results we will consult general surgery regarding timing of endoscopy. Progress Note #2: Time: 10:04 Progress Note She is more comfortable after the fentanyl. While she is not orthostatic she certainly has some soft blood pressures. Currently ranging from upper 80s to low 90s systolic. We will give her another 500 cc of fluid which would be greater than 30 mL/kg and get a type and screen. Although she has chronic anemia she may benefit from unit of packed red blood cells. She is not having any ongoing active bowel bleeding or bowel pain at this time. We did discuss the case with Dr. Nickerson, general surgery and he is going to come see her after he is done with his latest case. (OMID MINER) Diagnostic Imaging Diagonstic Imaging: Xray Plain Films/CT/US/NM/MRI: chest Comments [facility]. [place], [place] NAME: RIKY CERRATO [facility] REC#: [id number] PT STATUS: REG ER : 1950 PHYSICIAN: MOISES REYES MD ADMIT DATE: 06/19/21/ER Signed Date of Exam:06/19/21 CHEST 1 VIEW, AP/PA ONLY Indication: Shortness of breath Portable chest 6:17 AM Heart size and pulmonary vascularity are normal. Lungs are clear. There are no effusions or pneumothoraces. IMPRESSION: Negative chest Dictated by: Dictated on workstation # [id number] Dict: 06/19/21623 Trans: 06/19/21624 TCB [id number] Interpreted by: KIERRA MELÉNDEZ MD Electronically signed by: KIERRA MELÉNDEZ MD 06/19/21624 Reviewed: Reviewed by Me (OMID MINER) Departure Communication (Admissions) Time/Spoke to Admitting Phy: 10:10 Dr. Allen agrees to observe the patient with consult to general surgery. Time/Spoke to Consulting Phy: 10:00 Dr. Nickerson, general surgery agrees to take patient to EGD colonoscopy later today. He does not think blood products are necessary at this time. (OMID MINER) Impression Primary Impression: GI bleed due to NSAIDs Disposition: ADMITTED INPATIENT Condition: Stable Admissions Decision to Admit Reason: Admit from ER (General) Decision to Admit/Date: Jun 19, 2021 Time/Decision to Admit Time: 09:45 (OMID MINER) Departure-Patient Inst. Referrals: UNKNOWN (PCP/Family) Primary Care Physician MOISES REYES MD Jun 19, 2021 06:05 OMID MINER Jun 19, 2021 09:19
[2021-06-19 06:09] LABS: BASOPHILS % (AUTO) 0 % (0-10); EOSINOPHILS % (AUTO) 0 % (0-10); HEMATOCRIT 25 % (35-52); HEMOGLOBIN 8.6 g/dL (11.5-16.0); LYMPHOCYTES # (AUTO) 1.4 10^3/uL (1.0-4.0); LYMPHOCYTES % (AUTO) 10 % (12-44); MEAN CORPUSCULAR HEMOGLOBIN 35 pg (25-34); MEAN CORPUSCULAR HGB CONC 35 g/dL (32-36); MEAN CORPUSCULAR VOLUME 100 fL (80-99); MEAN PLATELET VOLUME 10.9 fL (9.0-12.2); MONOCYTES # (AUTO) 0.8 10^3/uL (0.0-1.0); MONOCYTES % (AUTO) 6 % (0-12); NEUTROPHILS # (AUTO) 11.6 10^3/uL (1.8-7.8); NEUTROPHILS % (AUTO) 83 % (42-75); PLATELET COUNT 258 10^3/uL (130-400); WHITE BLOOD COUNT 13.9 10^3/uL (4.3-11.0)
[2021-06-19 06:17] LABS: ALBUMIN 3.3 GM/DL (3.2-4.5); POTASSIUM 3.7 MMOL/L (3.6-5.0)
[2021-06-19 06:18] LABS: CALCIUM 8.3 MG/DL (8.5-10.1)
[2021-06-19 06:19] LABS: TOTAL PROTEIN 5.5 GM/DL (6.4-8.2)
[2021-06-19 06:21] LABS: BILIRUBIN,TOTAL 0.2 MG/DL (0.1-1.0)
[2021-06-19 06:23] LABS: CREATININE SERUM 0.52 MG/DL (0.60-1.30)
[2021-06-19 06:26] LABS: MAGNESIUM 1.7 MG/DL (1.6-2.4)
--- NOTE | 2021-06-19 06:26 | Diagnostic Imaging Report ---
Indication: Shortness of breath Portable chest 6:17 AM Heart size and pulmonary vascularity are normal. Lungs are clear. There are no effusions or pneumothoraces. IMPRESSION: Negative chest Dictated by: Dictated on workstation # [id number]
[2021-06-19 06:27] LABS: INR 0.9 (0.8-1.4); PROTHROMBIN TIME PATIENT 12.1 SEC (12.2-14.7)
[2021-06-19 07:54] LABS: BILIRUBIN,URINE NEGATIVE (NEGATIVE); CLARITY,URINE CLEAR; COLOR,URINE YELLOW; GLUCOSE, URINE (UA) NEGATIVE (NEGATIVE); KETONES,URINE NEGATIVE (NEGATIVE); LEUKOCYTE ESTERASE ,URINE TRACE (NEGATIVE); NITRITE,URINE POSITIVE (NEGATIVE); PROTEIN,URINE NEGATIVE (NEGATIVE)
[2021-06-19 08:15] LABS: BACTERIA,URINE MODERATE /HPF
[2021-06-19] MEDS ORDERED: fentaNYL INJ 100 MCG/2 ML AMP IVP ONE (09:15)
[2021-06-19] MEDS ORDERED: PANTOPRAZOLE 40 MG (PROTONIX) VIAL IV ONE (09:15)
[2021-06-19] MEDS ORDERED: cefTRIAXone 1,000 MG in WATER (STERILE) FOR INJECTION 10 ML IV ONE (09:30)
[2021-06-19] MEDS ORDERED: NS IV 500 ML 500 ML ONE (10:03)
[2021-06-19] MEDS ORDERED: NS IV 500 ML 500 ML IV ONE (10:15)
--- NOTE | 2021-06-19 10:22 | Consultation - Surgery ---
RHODA MANN 06/19/21 1022: History of Present Illness History of Present Illness Patient Consulted On(luis/time) 06/19/21 10:14 Date Seen by Provider: Jun 19, 2021 Time Seen by Provider: 10:14 History of Present Illness This is a consult for Dr. Quiroga in ER. Patient states that yesterday when she was trying to walk she would get very light headed and diaphoretic. Pt uses a walker for arthiritis in hips and sciatica. Patient was supposed to see ortho today for an injection but she had 3 bloody stools last night that brought her into the ER. Patient states no pain when passing stool. Patient reports feeling very fatigued yesterday and slept for most of the day. Patient was taking 600mg of ibuprofen TID for the past two weeks for hip and sacral pain. Patient did wa ke up and feel nauseous at 0400 and vomited up the ice water she was drinking. She has not vomited since. Allergies and Home Medications Allergies Coded Allergies: No Known Drug Allergies (Unverified , 09/18/19) Home Medications Ferrous Sulfate 325 Mg Tablet, 325 MG PO DAILY Prescribed by: CAROLA ALLEN on 09/25/19 1212 Naproxen Sodium 220 Mg Tablet, 220 MG PO Q8H PRN for PAIN-MILD, (Reported) Past Dmgnphp-Gsxgxt-Nrjofn Hx Patient Social History Smoking Status: Current Everyday Smoker (1-1.5 ppd) Type Used: Cigarettes 2nd Hand Smoke Exposure: Yes Recent Hopitalizations: Yes (Ortho surgery last year) Alcohol Use?: Yes Have you traveled recently?: No Surgeries History of Surgeries: Yes Surgeries: Breast (biopsies on both breasts), Orthopedic (Titanium david on right leg) Respiratory History of Respiratory Disorde: No Cardiovascular History of Cardiac Disorders: No Neurological History of Neurological Disord: No Reproductive System : No Hx Reproductive Disorders: No Genitourinary History of Genitourinary Disor: No Gastrointestinal History of Gastrointestinal Di: No Endocrine History of Endocrine Disorders: No HEENT History of HEENT Disorders: No Cancer History of Cancer: No (breat biopsies came back negative) Psychosocial History of Psychiatric Problem: No Family Medical History Significant Family History: No Pertinent Family Hx, Other Conditions/Hx (Mother of [place] in her 60's) Review of Systems-General Constitutional: chills (on and off since admitted to ER); No dizziness, No fever EENTM: No blurred vision, No double vision Respiratory: cough, dyspnea on exertion; No short of breath Cardiovascular: No chest pain, No palpitations Gastrointestinal: No abdominal pain, No nausea (not since medicated), No vomiting; other (blood in stool) Genitourinary: No decreased output, No dysuria Physical Exam-General Problems Physical Exam Vital Signs Vital Signs - First Documented 06/19/21 05:28 Temp 35.9 Pulse 94 Resp 20 B/P (MAP) 98/76 (83) Pulse Ox 97 O2 Delivery Room Air Capillary Refill : Less Than 3 Seconds General Appearance: WD/WN HEENT: PERRL/EOMI Neck: non-tender, full range of motion Respiratory: chest non-tender, normal breath sounds, no respiratory distress Cardiovascular: regular rate, rhythm, no gallop Gastrointestinal: normal bowel sounds, non tender, soft, no pulsatile mass Extremities: non-tender, normal inspection, no pedal edema, normal capillary refill Neurologic/Psychiatric: alert, normal mood/affect, oriented x 3 Skin: normal color, warm/dry Data Review Labs Laboratory Tests 06/19/21 05:56: White Blood Count 13.9H, Red Blood Count 2.46L, Hemoglobin 8.6L, Hematocrit 25L, Mean Corpuscular Volume 100H, Mean Corpuscular Hemoglobin 35H, Mean Corpuscular Hemoglobin Concent 35, Red Cell Distribution Width 12.3, Platelet Count 258, Mean Platelet Volume 10.9, Immature Granulocyte % (Auto) 1, Neutrophils (%) (Auto) 83H, Lymphocytes (%) (Auto) 10L, Monocytes (%) (Auto) 6, Eosinophils (%) (Auto) 0, Basophils (%) (Auto) 0, Neutrophils # (Auto) 11.6H, Lymphocytes # (Auto) 1.4, Monocytes # (Auto) 0.8, Eosinophils # (Auto) 0.0, Basophils # (Auto) 0.0, Immature Granulocyte # (Auto) 0.1, Prothrombin Time 12.1L, INR Comment 0.9, Activated Partial Thromboplast Time 24, Sodium Level 131L, Potassium Level 3.7, Chloride Level 96L, Carbon Dioxide Level 24, Anion Gap 11, Blood Urea Nitrogen 23H, Creatinine 0.52L, Estimat Glomerular Filtration Rate 117, BUN/Creatinine Ratio 44, Glucose Level 96, Calcium Level 8.3L, Corrected Calcium 8.9, Magnesium Level 1.7, Total Bilirubin 0.2, Aspartate Amino Transf (AST/SGOT) 19, Alanine Aminotransferase (ALT/SGPT) 18, Alkaline Phosphatase 149H, C-Reactive Protein High Sensitivity 0.78H, Total Protein 5.5L, Albumin 3.3, Lipase 17 06/19/21 07:06: Influenza Type A (RT-PCR) Not Detected, Influenza Type B (RT-PCR) Not Detected, SARS-CoV-2 RNA (RT-PCR) Not Detected 06/19/21 07:47: Urine Color YELLOW, Urine Clarity CLEAR, Urine pH 6.0, Urine Specific [place] 1.010L, Urine Protein NEGATIVE, Urine Glucose (UA) NEGATIVE, Urine Ketones NEGATIVE, Urine Nitrite POSITIVEH, Urine Bilirubin NEGATIVE, Urine Urobilinogen 0.2, Urine Leukocyte Esterase TRACEH, Urine RBC (Auto) NEGATIVE, Urine RBC NONE, Urine WBC 2-5, Urine Squamous Epithelial Cells 2-5, Urine Crystals NONE, Urine Bacteria MODERATEH, Urine Casts NONE, Urine Mucus NEGATIVE, Urine Culture Indicated YES Assessment/Plan Assessment/Plan Assessment/Plan Assessment: GI bleed Anemia Hypotension Plan: Admit to medicine Colonoscopy Monitor Hbg CORONADOHIRAL August DO 06/19/21 1203: History of Present Illness History of Present Illness History of Present Illness Consult requested by Dr. Roy for GI bleed. Patient is a 70 year old female with light headed and blood in stool. Blood is red in color. Has been taking ibuprofen for 2 weeks due to sciatica. Hgb found to be 8.6. Patient having nausea. Vomited once. Patient reports drinking 6-7 beers per night prior to starting ibuprofen. Blood pressure has been 90-100's Allergies and Home Medications Allergies Coded Allergies: No Known Drug Allergies (Unverified , 09/18/19) Home Medications Ferrous Sulfate 325 Mg Tablet, 325 MG PO DAILY Prescribed by: CAROLA ALLEN on 09/25/19 1212 Naproxen Sodium 220 Mg Tablet, 220 MG PO Q8H PRN for PAIN-MILD, (Reported) Patient Home Medication List Home Medication List Reviewed: Yes Past Qvifyha-Kdsomz-Eztcax Hx Patient Social History Number of Drinks Today: 8 Smoking Status: Current Everyday Smoker (1-1.5 ppd) 2nd Hand Smoke Exposure: Yes Surgeries Surgeries: Breast (biopsies on both breasts), Orthopedic (Titanium david on right leg) Respiratory History of Respiratory Disorde: No Gastrointestinal History of Gastrointestinal Di: No Musculoskeletal History of Musculoskeletal Dis: Yes Endocrine History of Endocrine Disorders: No HEENT History of HEENT Disorders: No Cancer History of Cancer: No (breat biopsies came back negative) Psychosocial History of Psychiatric Problem: No Integumentary History of Skin or Integumenta: No Blood Transfusions History of Blood Disorders: No Adverse Reaction to a Blood Tr: No Reviewed Nursing Assessment Reviewed/Agree w Nursing PMH: Yes Family Medical History Significant Family History: No Pertinent Family Hx Review of Systems-General Constitutional: No chills (on and off since admitted to ER); dizziness; No fever EENTM: No blurred vision, No double vision Respiratory: cough, dyspnea on exertion; No short of breath Cardiovascular: No chest pain, No palpitations Gastrointestinal: No abdominal pain; nausea, vomiting, other (blood in stool) Genitourinary: No decreased output, No dysuria Musculoskeletal: joint pain, other (sciatic) Skin: No change in color, No change in hair/nails Psychiatric/Neurological: Denies Anxiety, Denies Depressed, Denies Emotional Problems All Other Systems Reviewed Negative Unless Noted: Yes (Negative excepted noted.) Physical Exam-General Problems Physical Exam General Appearance: WD/WN, no apparent distress HEENT: PERRL/EOMI Neck: non-tender, full range of motion Respiratory: chest non-tender, normal breath sounds, no respiratory distress Cardiovascular: regular rate, rhythm, no JVD Gastrointestinal: normal bowel sounds, non tender, soft Rectal: deferred Back: no CVA tenderness, no vertebral tenderness Extremities: non-tender, normal inspection, no pedal edema Neurologic/Psychiatric: alert, normal mood/affect, oriented x 3 Skin: normal color, warm/dry Lymphatic: no adenopathy Assessment/Plan Assessment/Plan Assessment/Plan GI bleed/melena likely upper bleed Anemia secondary to above alcohol dependence EGD to evaluate, if no source need prep and colonoscopy tomorrow. Monitor Hbg NPO IV fluids Protonix. Supervisory-Addendum Brief Verification & Attestation Participated in pt care: history, MDM, physical Personally performed: exam, history, MDM, supervision of care Care discussed with: Medical Student Procedures: n/a Results interpretation: Verified all documentation Verification and Attestation of Medical Student E/M Service A medical student performed and documented this service in my presence. I reviewed and verified all information documented by the medical student and made modifications to such information, when appropriate. I personally performed the physical exam and medical decision making. Hiral Coronado, Jun 19, 2021,12:15 RHODA MANN Jun 19, 2021 10:22 HIRAL CORONADO DO Jun 19, 2021 12:03
[2021-06-19] MEDS ORDERED: proPOfol 200 MG/20 ML (DIPRIVAN) VIAL IV ONE (12:05)
[2021-06-19] MEDS ORDERED: PANTOPRAZOLE 40 MG (PROTONIX) VIAL IV SCH (13:00)
--- NOTE | 2021-06-19 13:02 | Progress Note-Post Operative ---
Post-Operative Progess Note Surgeon (s)/Screen Printing Machine Operator (s) Surgeon HIRAL CORONADO DO Screen Printing Machine Operator: na Pre-Operative Diagnosis anemia, gi bleed Post-Operative Diagnosis duodenal ulcer, duodenitis Procedure & Operative Findings Date of Procedure 06/19/21 Procedure Performed/Findings egd c bx antrum Anesthesia Type per manager it security Estimated Blood Loss Estimated blood loss (mL): none Specimens/Packing Specimens Removed antrum HIRAL CORONADO DO Jun 19, 2021 13:02
[2021-06-19] MEDS ORDERED: LACTATED RINGERS 1,000 ML IV STA (13:17)
[2021-06-19] MEDS ORDERED: HURRICAINE EXT TUBE (BENZOCAINE) XX PRN (13:30)
[2021-06-19] MEDS ORDERED: ONDANSETRON 4 MG/2 ML (SDV) Z0FRAN IVP PRN (14:30)
[2021-06-19] MEDS: LACTATED RINGERS 1,000 ML IV SCH ×3 (15:05→22:51)
[2021-06-19] MEDS: PANTOPRAZOLE DRIP 200 MG/NS 100 ML IV SCH ×2 (15:05)
[2021-06-19] MEDS: fentaNYL INJ 100 MCG/2 ML AMP IVP PRN (15:06)
[2021-06-19] MEDS: SUCRALFATE 1 GM (CARAFATE) TAB PO SCH ×2 (15:08→21:13)
[2021-06-19] MEDS ORDERED: RT-ALBUTEROL SULF 2.5 MG/3 ML PRE-MIX VIAL INH PRN (16:00)
[2021-06-19 18:01] LABS: MEAN CORPUSCULAR HEMOGLOBIN 35 pg (25-34); MEAN CORPUSCULAR HGB CONC 34 g/dL (32-36); MEAN CORPUSCULAR VOLUME 104 fL (80-99); MEAN PLATELET VOLUME 10.5 fL (9.0-12.2); PLATELET COUNT 178 10^3/uL (130-400); WHITE BLOOD COUNT 7.8 10^3/uL (4.3-11.0)
[2021-06-19 18:04] LABS: HEMATOCRIT 18 % (35-52); HEMOGLOBIN 6.2 g/dL (11.5-16.0)
[2021-06-19 18:08] LABS: POTASSIUM 3.6 MMOL/L (3.6-5.0)
[2021-06-19 18:10] LABS: CALCIUM 7.7 MG/DL (8.5-10.1)
[2021-06-19 18:14] LABS: CREATININE SERUM 0.54 MG/DL (0.60-1.30)
[2021-06-19] MEDS ORDERED: NS IV 500 ML 500 ML IV SCH (18:15)
[2021-06-19] MEDS ORDERED: 1/2 NS IV SOLUTION 1,000 ML IV PRN (19:00)
[2021-06-19] MEDS ORDERED: ONDANSETRON 4 MG/2 ML (SDV) Z0FRAN IV PRN (19:00)
[2021-06-19] MEDS ORDERED: D5 1/2 NS 1000 ML IV SOLUTION 1,000 ML IV PRN (19:00)
[2021-06-19] MEDS ORDERED: LORazepam INJ 2 MG/ML (ATIVAN) VIAL IV PRN (19:00)
[2021-06-19] MEDS ORDERED: SENNA W/DOCUSATE (SENOKOT S) TABLET PO PRN (19:00)
[2021-06-19] MEDS ORDERED: ANTACID SUSP 30 ML UDC (MYLANTA) PO PRN (19:00)
[2021-06-19] MEDS ORDERED: LORazepam INJ 2 MG/ML (ATIVAN) VIAL IM/IV PRN (19:00)
[2021-06-19] MEDS ORDERED: LORazepam 1 MG (ATIVAN) TAB PO PRN (19:00)
[2021-06-19] MEDS ORDERED: ONDANSETRON 4 MG (ZOFRAN) ORAL DISSOLVE TAB SL PRN (19:00)
--- NOTE | 2021-06-19 20:55 | OPERATIVE REPORT ---
DATE OF SERVICE: 06/19/2021 PREOPERATIVE DIAGNOSIS: Anemia, likely upper gastrointestinal bleed. POSTOPERATIVE DIAGNOSES: Duodenal ulcer, duodenitis. PROCEDURE: EGD with biopsy. SURGEON: Hiral Nickerson DO ANESTHESIA: Per COMPUTER INSTALLER. ESTIMATED BLOOD LOSS: None. COMPLICATIONS: None. INDICATIONS: The patient is a 70-year-old female who was brought to the Emergency Department for syncope and weakness. She has been having some blood in stools. She understands risks and benefits of procedure and wished to proceed with procedure. Consent was signed in the chart. DESCRIPTION OF PROCEDURE: The patient was taken to the endoscopy suite, placed in left lateral recumbent position. Timeout was performed. Scope was inserted in mouth, down the esophagus, stomach and into the duodenum. In the duodenum, large ulceration, difficult to assess the depth of ulceration. There were also surrounding erythema around it. Scope was slowly retracted back into the stomach where it was further insufflated. Slight erythematous changes. Biopsy of the antrum was obtained for H. pylori. Scope was retroflexed noting no other pathology. Scope was returned to its normal position, slowly withdrawn until completely the distal esophagus. No polyps, masses or ulcerations. Scope was slowly retracted back until completely removed. The patient tolerated procedure well without any complications. No active bleeding present. RECOMMENDATIONS: The patient received 40 of Protonix in the ER. We will do an additional 40 mg IV now and do Protonix 40 mg daily. The patient will also be started on the Carafate. Continue n.p.o. status currently, follow hemoglobin, transfuse packed red blood cells as needed. If continues to have bleeding or if anything suggestive of further bleeding, we will repeat endoscopy. Job ID: [id number] DocumentID: [id number] Dictated Date: 06/19/2021 13:16:33 Rubber Worker Date: 06/19/2021 20:54:28 Dictated By: HIRAL NICKERSON DO
[2021-06-19] MEDS: PANTOPRAZOLE 40 MG (PROTONIX) VIAL IV SCH (21:13)
--- NOTE | 2021-06-19 22:28 | Tele-ICU Progress Note ---
Progress Note 70F admitted with UGIB. Taken to endo, found to have DU. Full op note not available for review. Per report, "near perforation". Unclear if any intervention done. Will review when available. - DU: Protonix ongoing. Surgery following. - ABLA: Initial Hg 8.6, repeat 6.2. Did have some hypotension as low as 88/54. Currently receiving first of 2 units PRBC. HD stable and without complaints. - EtOH: CIWA ordered for etoh withdrawals. No evidence of withdrawal syndrome at this time. Focused Exam Height, Weight, BMI Height: 5'3.00" Weight: 105lbs. oz. 47.976870vj; 19.72 BMI Method:Stated SHIMA HANSEN MD Jun 19, 2021 22:28
[2021-06-20] VITALS (20 sets, daily range): BP systolic 114–183; BP diastolic 68–113
[2021-06-20] MEDS: LACTATED RINGERS 1,000 ML IV SCH ×4 (00:39→19:26)
[2021-06-20] MEDS: fentaNYL INJ 100 MCG/2 ML AMP IVP PRN ×2 (00:44→04:27)
[2021-06-20 04:06] LABS: BASOPHILS # (AUTO) 0.1 10^3/uL (0.0-0.1); BASOPHILS % (AUTO) 1 % (0-10); EOSINOPHILS % (AUTO) 0 % (0-10); HEMATOCRIT 33 % (35-52); HEMOGLOBIN 11.1 g/dL (11.5-16.0); LYMPHOCYTES # (AUTO) 1.4 10^3/uL (1.0-4.0); LYMPHOCYTES % (AUTO) 18 % (12-44); MEAN CORPUSCULAR HEMOGLOBIN 32 pg (25-34); MEAN CORPUSCULAR HGB CONC 34 g/dL (32-36); MEAN CORPUSCULAR VOLUME 96 fL (80-99); MONOCYTES # (AUTO) 0.7 10^3/uL (0.0-1.0); MONOCYTES % (AUTO) 8 % (0-12); NEUTROPHILS # (AUTO) 5.6 10^3/uL (1.8-7.8); NEUTROPHILS % (AUTO) 72 % (42-75); PLATELET COUNT 164 10^3/uL (130-400); WHITE BLOOD COUNT 7.8 10^3/uL (4.3-11.0)
[2021-06-20 04:18] LABS: POTASSIUM 3.4 MMOL/L (3.6-5.0)
[2021-06-20 04:19] LABS: CALCIUM 7.9 MG/DL (8.5-10.1)
[2021-06-20 04:23] LABS: PHOSPHORUS 2.8 MG/DL (2.3-4.7)
[2021-06-20 04:24] LABS: CREATININE SERUM 0.56 MG/DL (0.60-1.30)
[2021-06-20 04:26] LABS: MAGNESIUM 1.8 MG/DL (1.6-2.4)
[2021-06-20] MEDS ORDERED: POTASSIUM CL 10MEQ/50ML IVPB 100 ML IV ONE (06:49)
[2021-06-20] MEDS: POTASSIUM CL 10MEQ/50ML IVPB 50 ML IV SCH ×2 (06:51→08:28)
[2021-06-20] MEDS: SUCRALFATE 1 GM (CARAFATE) TAB PO SCH ×4 (06:51→20:08)
--- NOTE | 2021-06-20 07:15 | Progress Note - Surgery ---
RHODA MANN 06/20/21 0715: Subjective Date Seen by a Provider: Jun 20, 2021 Time Seen by a Provider: 07:10 Subjective/Events-last exam Patient states her low back pain and sciatica is flaring up. Hbg dropped to 6.2 last night. After transfusion of 2 units it is now at 11.1. Need to recheck hemo globin. Patient is producing urine. Patient has not had a bowel movement. Objective Exam Vital Signs Date Time Temp Pulse Resp B/P (MAP) Pulse Ox O2 Delivery O2 Flow Rate FiO2 06/20/21 06:00 70 14 155/84 (107) 97 Room Air 06/20/21 05:00 76 15 138/71 (93) 96 Room Air 06/20/21 04:00 74 19 144/80 (101) 97 Room Air 06/20/21 04:00 36.6 06/20/21 03:00 70 16 140/76 (97) 100 Room Air 06/20/21 02:00 71 16 130/78 (95) 100 Room Air 06/20/21 01:00 73 14 120/68 (85) 100 Room Air 06/20/21 01:00 73 06/20/21 00:38 36.0 06/20/21 00:00 75 16 114/69 (84) 100 Room Air 06/19/21 23:00 79 17 113/66 (82) 100 Room Air 06/19/21 22:50 36.6 73 17 108/60 100 Room Air 06/19/21 22:32 36.4 78 11 104/65 100 Room Air 06/19/21 22:03 100 Room Air 06/19/21 22:00 74 15 106/67 (80) 100 Room Air 06/19/21 21:00 80 16 100/75 (83) 100 Room Air 06/19/21 20:00 84 21 88/52 (64) 100 Room Air 06/19/21 19:55 37.1 06/19/21 19:35 36.6 91 24 96/59 100 Room Air 06/19/21 19:30 97 Room Air 06/19/21 19:18 37.0 84 16 88/54 100 06/19/21 19:00 84 19 88/54 (65) 99 Room Air 06/19/21 19:00 90 06/19/21 16:00 37.0 88 18 95/68 (77) 100 Room Air 06/19/21 15:55 94 97 06/19/21 14:00 97 Room Air 06/19/21 12:52 98 16 97 Room Air 06/19/21 12:47 96 16 98 Room Air 06/19/21 12:23 96 18 92/63 98 06/19/21 09:54 68 87/59 (68) 83 101/71 (81) 82 88/76 (80) I & O 06/20/21 07:00 Intake Total 2060 ml Output Total 700 ml Balance 1360 ml Capillary Refill : Less Than 3 Seconds General Appearance: WD/WN, Mild Distress, Thin HEENT: PERRL/EOMI, Other (Moist mucous membranes) Neck: Non Tender Respiratory: Lungs Clear, Normal Breath Sounds, No Accessory Muscle Use, No Respiratory Distress Cardiovascular: Regular Rate, Rhythm, No Edema Gastrointestinal: normal bowel sounds, non tender, soft Extremity: Normal Capillary Refill, Normal Inspection, No Calf Tenderness, No Pedal Edema Neurologic/Psychiatric: Alert, Oriented x3, No Motor/Sensory Deficits, Normal Mood/Affect Skin: Warm/Dry, Ecchymosis Results Lab Laboratory Tests 06/19/21 07:47: Urine Color YELLOW, Urine Clarity CLEAR, Urine pH 6.0, Urine Specific [place] 1.010L, Urine Protein NEGATIVE, Urine Glucose (UA) NEGATIVE, Urine Ketones NEGATIVE, Urine Nitrite POSITIVEH, Urine Bilirubin NEGATIVE, Urine Urobilinogen 0.2, Urine Leukocyte Esterase TRACEH, Urine RBC (Auto) NEGATIVE, Urine RBC NONE, Urine WBC 2-5, Urine Squamous Epithelial Cells 2-5, Urine Crystals NONE, Urine Bacteria MODERATEH, Urine Casts NONE, Urine Mucus NEGATIVE, Urine Culture Indicated YES 06/19/21 17:48: White Blood Count 7.8, Red Blood Count 1.75L, Hemoglobin 6.2#*L, Hematocrit 18*L , Mean Corpuscular Volume 104H, Mean Corpuscular Hemoglobin 35H, Mean Corpus cular Hemoglobin Concent 34, Red Cell Distribution Width 12.7, Platelet Count 178, Mean Platelet Volume 10.5, Sodium Level 136, Potassium Level 3.6, Chloride Level 104, Carbon Dioxide Level 24, Anion Gap 8, Blood Urea Nitrogen 11, Creatinine 0.54L, Estimat Glomerular Filtration Rate 112, BUN/Creatinine Ratio 20, Glucose Level 81, Calcium Level 7.7L 06/20/21 00:48: Glucometer 73 06/20/21 03:24: White Blood Count 7.8, Red Blood Count 3.44L, Hemoglobin 11.1#L, Hematocrit 33L, Mean Corpuscular Volume 96, Mean Corpuscular Hemoglobin 32, Mean Corpuscular Hemoglobin Concent 34, Red Cell Distribution Width 15.9H, Platelet Count 164, Mean Platelet Volume 11.0, Sodium Level 137, Potassium Level 3.4L, Chloride Level 106, Carbon Dioxide Level 21, Anion Gap 10, Blood Urea Nitrogen 9, Creatinine 0.56L, Estimat Glomerular Filtration Rate 107, BUN/Creatinine Ratio 16, Glucose Level 74, Calcium Level 7.9L, Immature Granulocyte % (Auto) 1, Neutrophils (%) (Auto) 72, Lymphocytes (%) (Auto) 18, Monocytes (%) (Auto) 8, Eosinophils (%) (Auto) 0, Basophils (%) (Auto) 1, Neutrophils # (Auto) 5.6, Lymphocytes # (Auto) 1.4, Monocytes # (Auto) 0.7, Eosinophils # (Auto) 0.0, Basophils # (Auto) 0.1, Immature Granulocyte # (Auto) 0.1, Phosphorus Level 2.8, Magnesium Level 1.8 Assessment/Plan Assessment/Plan Assessment/Plan GI bleed/melena Duodenal ulcer Duodenitits Anemia due to duodenal ulcer alcohol dependence Monitor Hbg NPO IV fluids Protonix. Give RBCs prn HIRAL NICKERSON 06/20/21 1408: Subjective Subjective/Events-last exam Patient with hemoglobin dropped to 6.2 last night. Got 2 units of packed red blood cells. Patient with no more blood per rectum. Patient had blood pressure systolic in the 80s last night was transferred to the intensive care unit. Currently blood pressure adequate. Patient having some sciatic pain. She is n.p.o. Denies any new complaints. Denies any nausea vomiting fever sweats chills shortness of breath or chest pain. Patient is on Protonix drip and sucralfate. Patient repeat hemoglobin 11.1. Objective Exam General Appearance: Chronically ill, Thin HEENT: PERRL/EOMI, Other (Moist mucous membranes) Neck: Non Tender Respiratory: Chest Non Tender, No Accessory Muscle Use, No Respiratory Distress Cardiovascular: Regular Rate, Rhythm, No JVD Gastrointestinal: normal bowel sounds, non tender, soft Extremity: Normal Inspection, Non Tender, No Calf Tenderness Neurologic/Psychiatric: Alert, Oriented x3, No Motor/Sensory Deficits, Normal Mood/Affect Skin: Normal Color, Warm/Dry Lymphatic: No Adenopathy Assessment/Plan Assessment/Plan Assessment/Plan GI bleed/melena Duodenal ulcer Duodenitits Anemia due to duodenal ulcer alcohol dependence NPO IV fluids Protonix Drip Follow hemoglobin Discussed cessation of alcohol. ciwa Repeat hemoglobin if stable can go to stepdown Likely start clears tomorrow Supervisory-Addendum Brief Verification & Attestation Participated in pt care: history, MDM, physical Personally performed: exam, history, MDM, supervision of care Care discussed with: Medical Student Procedures: n/a Results interpretation: Verified all documentation Verification and Attestation of Medical Student E/M Service A medical student performed and documented this service in my presence. I reviewed and verified all information documented by the medical student and made modifications to such information, when appropriate. I personally performed the physical exam and medical decision making. Hiral Nickerson, Jun 20, 2021,14:07 RHODA MANN Jun 20, 2021 07:15 HIRAL NICKERSON DO Jun 20, 2021 14:08
[2021-06-20] MEDS ORDERED: BISM525O18 PO (08:53)
[2021-06-20] MEDS ORDERED: CHOL10007 PO (08:53)
[2021-06-20] MEDS: PANTOPRAZOLE 40 MG (PROTONIX) VIAL IV SCH (08:58)
[2021-06-20] MEDS ORDERED: fentaNYL INJ 100 MCG/2 ML AMP IVP PRN (09:30)
--- NOTE | 2021-06-20 11:03 | Tele-ICU Progress Note ---
Subjective Date Seen by a Provider: Jun 20, 2021 Time Seen by a Provider: 10:45 Subjective/Events-last exam Patient seen for virtual visit which was conducted using real time audio/video. Thank you for asking us to see this patient for UGIB. HPC: Recent events:Stable overnight. SH: smoking history:Y ROS: limited to HPI. PE: Appears comfortable on camera. VSS HEENT: No obvious masses, adenopathy or JVD. Chest: clear to auscultation. CV: RRR S1 S2 No murmur or added sounds. Abd: Non-tender. Bowel sounds . : Unremarkable. Antunez N . PLASTIC BOAT BUFFER/psychiatric: Alert and oriented, grossly intact. No obvious focal findings. Extremities:No edema. Capillary refill < 3 seconds. Skin: unremarkable. Results: Hb 11.1. K 3.4. A/P: S/P UGIB w near perforated DU on EGD. Available chart/ vitals / labs / Images reviewed Video assessment done using teleICU camera, rest of exam as per RN P: replace K, cont Sucralfate, Mylanta, IV Protonix Monitor for further bleeding. Repeat CBC later this AM.. Critical Care: critically ill patient. Discussed with BERNADINE Quezada. Asked RN to reach out to eICU if any questions or concerns later. Time spent with patient/family/coordination of care with other health professionals (mins): 10 Sepsis Event Evaluation Height, Weight, BMI Height: 5'3.00" Weight: 105lbs. oz. 47.987827ar; 19.72 BMI Method:Stated Exam Exam Patient acknowledged, consented, and participated in this virtual visit which was conducted using real time audio/video Vital Signs Date Time Temp Pulse Resp B/P (MAP) Pulse Ox O2 Delivery O2 Flow Rate FiO2 06/20/21 09:00 70 10 160/86 (110) 98 Room Air 06/20/21 08:00 66 19 144/73 (112) 82 Room Air 06/20/21 07:46 35.9 06/20/21 07:00 71 19 139/80 (115) 95 Room Air 06/20/21 07:00 75 06/20/21 06:00 70 14 155/84 (107) 97 Room Air 06/20/21 05:00 76 15 138/71 (93) 96 Room Air 06/20/21 04:00 74 19 144/80 (101) 97 Room Air 06/20/21 04:00 36.6 06/20/21 03:00 70 16 140/76 (97) 100 Room Air 06/20/21 02:00 71 16 130/78 (95) 100 Room Air 06/20/21 01:00 73 14 120/68 (85) 100 Room Air 06/20/21 01:00 73 06/20/21 00:38 36.0 06/20/21 00:00 75 16 114/69 (84) 100 Room Air 06/19/21 23:00 79 17 113/66 (82) 100 Room Air 06/19/21 22:50 36.6 73 17 108/60 100 Room Air 06/19/21 22:32 36.4 78 11 104/65 100 Room Air 06/19/21 22:03 100 Room Air 06/19/21 22:00 74 15 106/67 (80) 100 Room Air 06/19/21 21:00 80 16 100/75 (83) 100 Room Air 06/19/21 20:00 84 21 88/52 (64) 100 Room Air 06/19/21 19:55 37.1 06/19/21 19:35 36.6 91 24 96/59 100 Room Air 06/19/21 19:30 97 Room Air 06/19/21 19:18 37.0 84 16 88/54 100 06/19/21 19:00 84 19 88/54 (65) 99 Room Air 06/19/21 19:00 90 06/19/21 16:00 37.0 88 18 95/68 (77) 100 Room Air 06/19/21 15:55 94 97 06/19/21 14:00 97 Room Air 06/19/21 12:52 98 16 97 Room Air 06/19/21 12:47 96 16 98 Room Air 06/19/21 12:23 96 18 92/63 98 I & O 06/20/21 07:00 Intake Total 2060 ml Output Total 700 ml Balance 1360 ml Height & Weight Height: 5'3.00" Weight: 105lbs. oz. 47.540645do; 19.72 BMI Method:Stated General Appearance: WD/WN, Mild Distress, Thin HEENT: PERRL/EOMI, Other (Moist mucous membranes) Neck: Non Tender Respiratory: Lungs Clear, Normal Breath Sounds, No Accessory Muscle Use, No Respiratory Distress Cardiovascular: Regular Rate, Rhythm, No Edema Capillary Refill: Less Than 3 Seconds Gastrointestinal: normal bowel sounds, non tender, soft Extremity: Normal Capillary Refill, Normal Inspection, No Calf Tenderness, No Pedal Edema Neurologic/Psychiatric: Alert, Oriented x3, No Motor/Sensory Deficits, Normal Mood/Affect Skin: Warm/Dry, Ecchymosis Results Lab Laboratory Tests 06/19/21 05:56 06/19/21 17:48 06/20/21 03:24 Assessment/Plan Assessment/Plan See free text. Critical Care: Critically Ill Patient Time spent on discussion(mins): 0 MICHAELA WILD MD Jun 20, 2021 11:03
[2021-06-20] MEDS: LIDOCAINE 4% (SALONPAS) PATCH TOP SCH (11:10)
[2021-06-20 12:12] LABS: HEMOGLOBIN 10.9 g/dL (11.5-16.0)
--- NOTE | 2021-06-20 14:13 | History & Physical-Hospitalist ---
History of Present Illness HPI/Chief Complaint Lia Sloan is a 70-year-old female with chronic low back pain and sciatica who presented with GI bleeding. He reports that she was having bright red blood per rectum. She has been taking ibuprofen regularly. She was scheduled to have a steroid injection in her back and is very concerned about this. She denies li ghtheadedness and dizziness. She denies chest pain. She denies shortness of breath. She has no other complaints or concerns. Source: patient Exam Limitations: no limitations Date Seen 06/20/21 Time Seen by a Provider: 09:20 Attending Physician Carola Allen MD PCP Deleted Referring Physician Date of Admission Jun 20, 2021 at 13:28 Home Medications & Allergies Home Medications Reviewed patient Home Medication Reconciliation performed by pharmacy medication reconciliations truck service technician and/or nursing. Patients Allergies have been reviewed. Allergies Allergies Coded Allergies No Known Drug Allergies (Bitgheyxvd53/4/19) Past Flywtdp-Rqrysl-Frscxy Hx Patient Social History Tobacco Use?: Yes Tobacco type used: Cigarettes Smoking Status: Current Everyday Smoker Smokeless Tobacco Frequency: Never a User Use of E-Cig and/or Vaping dev: No Substance use?: No Alcohol Use?: Yes Alcohol type: Beer Alcohol Frequency: Daily Pt feels they are or have been: No Immunizations Up To Date First/Initial COVID19 Vaccinat: DECEMBER/2020 Second COVID19 Vaccination Lester: JANUARY/2021 Tetanus Booster (TDap): Unknown Hepatitis A: No Hepatitis B: No Current Status status: No status: No Advance Directives: No Communicates: Verbally Primary Language: Kiswahili Preferred Spoken Language: Kiswahili Is interpretation needed?: No Sensory deficits: Vision impairment, Speech impairment Implanted or Applied Medical D: Orthopedic hardware Past Medical History Surgeries: Breast (biopsies on both breasts), Orthopedic (Titanium david on right leg) Blood Disorders: No Adverse Reaction/Blood Tranf: No Family Medical History No Pertinent Family Hx Review of Systems Constitutional: no symptoms reported EENTM: no symptoms reported Respiratory: no symptoms reported Cardiovascular: no symptoms reported Gastrointestinal: other (Hematochezia) Genitourinary: no symptoms reported Musculoskeletal: back pain Skin: no symptoms reported Psychiatric/Neurological: No Symptoms Reported Physical Exam Physical Exam Vital Signs Vital Signs - First Documented 06/19/21 05:28 Temp 35.9 Pulse 94 Resp 20 B/P (MAP) 98/76 (83) Pulse Ox 97 O2 Delivery Room Air Capillary Refill : Less Than 3 Seconds Height, Weight, BMI Height: 5'3.00" Weight: 105lbs. oz. 47.821383uo; 19.72 BMI Method:Stated General Appearance: No Apparent Distress, Chronically ill HEENT: PERRL/EOMI, Pharynx Normal Neck: Normal Inspection, Supple Respiratory: Lungs Clear, Normal Breath Sounds, No Respiratory Distress Cardiovascular: Regular Rate, Rhythm, No Edema, No Murmur Gastrointestinal: Normal Bowel Sounds, Non Tender, Soft Extremity: Normal Inspection, Non Tender, No Pedal Edema Neurologic/Psychiatric: Alert, Oriented x3, No Motor/Sensory Deficits Skin: Normal Color, Warm/Dry Results Results/Procedures Labs Laboratory Tests 06/19/21 05:56 06/19/21 17:48 06/20/21 03:24 06/20/21 12:05 Patient resulted labs reviewed. Imaging: Reviewed Imaging Report Assessment/Plan Admission Diagnosis Acute GI bleeding Admission Status: Inpatient Order (span 2 midnights) Reason for Inpatient Admission: GI bleed requiring endoscopic intervention Assessment and Plan Acute GI bleeding Acute blood loss anemia NSAID induced duodenal ulcer Chronic back pain Hgb 8.6 on arrival, decreased to 6.2 Improved to 11 after 2 units PRBC Surgery consulted EGD revealed large duodenal ulcer, no active bleeding IV PPI Avoid NSAIDs NPO Fentanyl as needed Lidocaine patch Tobacco abuse Nicotine patch Alcohol abuse Monitor for signs of withdrawal DVT prophylaxis: held due to active bleeding Diagnosis/Problems Diagnosis/Problems (1) Acute GI bleeding Status: Acute (2) ABLA (acute blood loss anemia) Status: Acute (3) NSAID-induced duodenal ulcer Status: Acute (4) Chronic back pain Status: Chronic Qualifiers: Back pain location: low back pain Sciatica presence: with sciatica (5) Tobacco abuse Status: Chronic (6) Alcohol abuse Status: Chronic CAROLA ALLEN MD Jun 20, 2021 14:13
[2021-06-20] MEDS ORDERED: PANTOPRAZOLE 40 MG (PROTONIX) VIAL IV ONE (14:15)
[2021-06-20] MEDS: DICLOFENAC 1% GEL 100 GM (VOLTAREN) TUBE TOP SCH ×2 (16:08→20:08)
[2021-06-20] MEDS: PANTOPRAZOLE DRIP 200 MG/NS 100 ML IV SCH ×4 (16:12→19:38)
[2021-06-20] MEDS ORDERED: hydrALAZINE (APESOLINE) 20 MG/ML VIAL IV PRN (18:15)
[2021-06-20] MEDS: PATCH REMOVAL TP SCH (20:08)
[2021-06-20] MEDS ORDERED: PANTOPRAZOLE 40 MG (PROTONIX) VIAL IV SCH (21:00)
[2021-06-21] MEDS ORDERED: DEXTROSE 50% 50 ML (IMS) SYR IV ONE (01:15)
[2021-06-21] MEDS ORDERED: DEXTROSE 50% 50 ML (IMS) SYR ONE (01:18)
[2021-06-21 03:15] VITALS: BP 152/85
[2021-06-21] MEDS: LACTATED RINGERS 1,000 ML IV SCH ×3 (03:18→20:24)
[2021-06-21 03:37] LABS: HEMOGLOBIN 11.8 g/dL (11.5-16.0)
[2021-06-21 03:59] LABS: PHOSPHORUS 2.3 MG/DL (2.3-4.7)
[2021-06-21 04:01] LABS: MAGNESIUM 1.5 MG/DL (1.6-2.4)
[2021-06-21] MEDS: KCL 20 MEQ TAB (K-DUR) PO SCH (05:15)
[2021-06-21] MEDS: MAGNESIUM 1 GM/100 ML IVPB 100 ML IV SCH ×2 (05:15→05:41)
[2021-06-21] MEDS: POTASSIUM CL 10MEQ/50ML IVPB 50 ML IV SCH (05:15)
[2021-06-21] MEDS: SUCRALFATE 1 GM (CARAFATE) TAB PO SCH ×4 (05:41→20:16)
[2021-06-21 07:54] VITALS: BP 133/77
[2021-06-21 08:16] LABS: CALCIUM 8.1 MG/DL (8.5-10.1); CREATININE SERUM 0.53 MG/DL (0.60-1.30); POTASSIUM 3.1 MMOL/L (3.6-5.0)
[2021-06-21] MEDS ORDERED: NICOTINE 14 MG (NICODERM) PATCH TD PRN (09:30)
[2021-06-21] MEDS: LIDOCAINE 4% (SALONPAS) PATCH TOP SCH (10:01)
[2021-06-21] MEDS: DICLOFENAC 1% GEL 100 GM (VOLTAREN) TUBE TOP SCH ×4 (10:05→20:15)
--- NOTE | 2021-06-21 10:32 | Physical Therapy Evaluation ---
PT Evaluation-General Medical Diagnosis Admission Date Jun 20, 2021 at 13:28 Medical Diagnosis: GI Bleed Onset Date: Jun 19, 2021 Therapy Diagnosis Therapy Diagnosis: Weakness Height/Weight Height (Feet): 5 Height (Inches): 3.00 Weight (Pounds): 105 Precautions Precautions/Isolations: Standard Precautions Weight Bear Status Full Weight Bearing Full Weight Bearing Referral Physician: Klaudia Reason for Referral: Evaluation/Treatment Medical History Additional Medical History ETOH abuse, smokes, chronic back and sciatic pain, humerus and hip fx Social History Home: Single Level Current Living Status: Significant Other Entry Into Home: Stairs With Railing Prior Prior Level of Function SCALE: Activities may be completed with or without assistive devices. 2-Ghqlxqvwcv-punvcyj completes the activity by him/herself with no assistance from a helper. 5-Set-up or Clean-up Assistance-helper sets up or cleans up; patient completes activity. [place] assists only prior to or following the activity. 4-Supervision or Touching Assistance-helper provides verbal cues and/or touching/steadying and/or contact guard assistance as patient completes activity. Assistance may be provided throughout the activity or intermittently. 3-Partial/Moderate Assistance-helper does LESS THAN HALF the effort. [place] lifts, holds or supports trunk or limbs, but provides less than half the effort. 2-Substantial/Maximal Assistance-helper does MORE THAN HALF the effort. [place] lifts or holds trunk or limbs and provides more than half the effort. 0-Rocraxssk-bnkfey does ALL the effort. Patient does none of the effort to complete the activity. Or, the assistance of 2 or more helpers is required for the patient to complete the activity. If activity was not attempted, code reason: 7-Patient Refused. 9-Not Applicable-not attempted and the patient did not perform the activity before the current illness, exacerbation or injury. 10-Not Attempted due to Environmental Limitations-(lack of equipment, weather restraints, etc.). 88-Not Attempted due to Medical Conditions or Safety Concerns. Bed Mobility: 6 Transfers (B,C,W/C): 6 Gait: 6 Stairs: 6 Indoor Mobility (Ambulation): Independent Stairs: Independent Prior Devices Use: Walker PT Evaluation-Current Subjective Pt reports increasing use of NSAIDs over the last week to help with sciatic pain. She began having blood in the stool and increased weakness. Admitted to the hospital via ER and found to have GI Bleed. Objective Patient Orientation: Normal For Age Attachments: IV ROM/Strength ROM Upper Extremities WFL ROM Lower Extremities WFL Strength Upper Extremities gross 4/5 Strength Lower Extremities gross 4/5 Sensory Vision: Functional Hearing: Functional Transfers Roll Left to Right (QC): 5 Sit to Lying (QC): 5 Lying to Sitting/Side of Bed(Q: 5 Sit to Stand (QC): 4 Chair/Uhf-us-Gxepz Xfer(QC): 4 Close supervision for safety during transfer Gait Does the Patient Walk?: Yes Mode of Locomotion: Walk Anticipated Mode of Locomotion: Walk Walk 10 feet (QC): 4 Gait Assistive Device: FWW Comments/Gait Description stable gait; supervision for safety Balance Sitting Static: Normal Sitting Dynamic: Normal Standing Static: Fair Standing Dynamic: Fair Assessment/Needs Pt demonstrates good mobility. Slight weakness with decreased activity tolerance. Stable on her feet. Rehab Potential: Good PT Spiral Tube Winder Goals Residential Goals PT Residential Goals Time Frame: Jun 25, 2021 Roll Left & Right (QC): 6 Sit to Lying (QC): 6 Lying-Sitting on Side/Bed(QC): 6 Sit to Stand (QC): 6 Chair/Cnk-lx-Tford Xfer(QC): 6 Walk 150 ft (QC): 6 PT Plan Problem List Problem List: Activity Tolerance, Balance, Gait Treatment/Plan Treatment Plan: Continue Plan of Care Treatment Duration: Jun 25, 2021 Frequency: 6 times per week Estimated Hrs Per Day: .25 hour per day Patient and/or Family Agrees t: Yes Time/GCodes Time In: 1020 Time Out: 1040 Total Billed Treatment Time: 20 Total Billed Treatment visit, alvaro moderate complexity 20 min CHARITO SWANSON PT Jun 21, 2021 10:32
--- NOTE | 2021-06-21 11:50 | Progress Note - Hospitalist ---
Subjective HPI/CC On Admission Date Seen by Provider: Jun 21, 2021 Time Seen by Provider: 09:10 Lia Sloan is a 70-year-old female with chronic low back pain and sciatica who presented with GI bleeding. He reports that she was having bright red blood per rectum. She has been taking ibuprofen regularly. She was scheduled to have a steroid injection in her back and is very concerned about this. She denies lightheadedness and dizziness. She denies chest pain. She denies shortness of breath. She has no other complaints or concerns. Subjective/Events-last exam She is feeling better. She has not had any bloody stools. She is not having any abdominal pain. She is ready to advance her diet. She is asking for a walker to help get her to the bathroom. Objective Exam Vital Signs Vital Signs Date Time Temp Pulse Resp B/P (MAP) Pulse Ox O2 Delivery O2 Flow Rate FiO2 06/21/21 08:00 95 Room Air 06/21/21 07:54 36.2 70 20 133/77 (95) Capillary Refill : Less Than 3 Seconds General Appearance: No Apparent Distress, Chronically ill, Thin Respiratory: Lungs Clear, Normal Breath Sounds, No Respiratory Distress Cardiovascular: Regular Rate, Rhythm, No Edema, No Murmur Gastrointestinal: Normal Bowel Sounds, Non Tender, Soft Extremity: Normal Inspection, Non Tender, No Pedal Edema Neurologic/Psychiatric: Alert, Oriented x3, Normal Mood/Affect Skin: Normal Color, Warm/Dry Results/Procedures Lab Laboratory Tests 06/20/21 12:05 06/21/21 03:20 Patient resulted labs reviewed. Imaging: Reviewed Imaging Report Assessment/Plan Assessment and Plan Assess & Plan/Chief Complaint Acute GI bleeding Acute blood loss anemia NSAID induced duodenal ulcer Chronic back pain Hgb stable s/p 2 units PRBC Surgery following EGD revealed large duodenal ulcer, no active bleeding IV PPI Avoid NSAIDs Advance to clear liquid diet Fentanyl as needed Lidocaine patch Tobacco abuse Nicotine patch Alcohol abuse Monitor for signs of withdrawal DVT prophylaxis: held due to active bleeding Diagnosis/Problems Diagnosis/Problems (1) Acute GI bleeding Status: Acute (2) ABLA (acute blood loss anemia) Status: Acute (3) NSAID-induced duodenal ulcer Status: Acute (4) Chronic back pain Status: Chronic Qualifiers: Back pain location: low back pain Sciatica presence: with sciatica (5) Tobacco abuse Status: Chronic (6) Alcohol abuse Status: Chronic CAROLA ALLEN MD Jun 21, 2021 11:50
--- NOTE | 2021-06-21 11:50 | Progress Note - Surgery ---
Subjective Time Seen by a Provider: 11:16 Subjective/Events-last exam Pt seen and examined, denies abdominal pain. States she had a small BM this am and noticed a small amount of blood. Feel stronger and wants to eat. Review of Systems General: Fatigue Pulmonary: No Dyspnea, No Cough Cardiovascular: No: Chest Pain, Palpitations Gastrointestinal: No: Nausea, Vomiting, Abdominal Pain Objective Exam Vital Signs Date Time Temp Pulse Resp B/P (MAP) Pulse Ox O2 Delivery O2 Flow Rate FiO2 06/21/21 08:00 95 Room Air 06/21/21 07:54 36.2 70 20 133/77 (95) 97 Room Air 06/21/21 07:00 69 06/21/21 03:15 37.0 74 14 152/85 (107) 94 Room Air 06/21/21 01:00 64 06/20/21 23:30 37.0 66 20 155/74 (101) 94 Room Air 06/20/21 19:45 148/77 (100) 06/20/21 19:30 35.5 71 16 95 Room Air 06/20/21 19:30 95 Room Air 06/20/21 19:00 70 06/20/21 17:00 75 13 183/94 (123) 94 Room Air 06/20/21 16:00 69 14 172/99 (123) 97 Room Air 06/20/21 15:45 36.6 06/20/21 15:00 69 25 163/113 (130) 97 Room Air 06/20/21 14:00 68 21 157/97 (117) 100 Room Air 06/20/21 13:00 72 17 173/89 (117) 95 Room Air 06/20/21 12:48 66 06/20/21 12:47 35.6 06/20/21 12:00 66 12 159/81 (107) 94 Room Air I & O 06/21/21 07:00 Intake Total 3260 ml Output Total 2075 ml Balance 1185 ml Capillary Refill : Less Than 3 Seconds General Appearance: No Apparent Distress, Chronically ill HEENT: PERRL/EOMI, Pharynx Normal Respiratory: Lungs Clear, Normal Breath Sounds, No Respiratory Distress Cardiovascular: Regular Rate, Rhythm, No Edema, No Murmur Gastrointestinal: normal bowel sounds, non tender, soft Extremity: Normal Inspection, Non Tender, No Pedal Edema Neurologic/Psychiatric: Alert, Oriented x3 Skin: Normal Color, Warm/Dry Results Lab Laboratory Tests 06/20/21 12:05: Hemoglobin 10.9L, Hematocrit 32L 06/20/21 17:10: Glucometer 79 06/20/21 23:37: Glucometer 69L 06/21/21 01:11: Glucometer 63L 06/21/21 03:20: Hemoglobin 11.8, Hematocrit 34L, Sodium Level 130L, Potassium Level 3.1L, Chloride Level 100, Carbon Dioxide Level 20L, Anion Gap 10, Blood Urea Nitrogen 5L, Creatinine 0.53L, Estimat Glomerular Filtration Rate 114, BUN/Creatinine Ratio 9, Glucose Level 87, Calcium Level 8.1L, Phosphorus Level 2.3, Magnesium Level 1.5L 06/21/21 05:29: Glucometer 137H Microbiology 06/19/21 MRSA Screen - Final, Complete MRSA not isolated 06/19/21 Urine Culture - Preliminary, Resulted Escherichia coli Assessment/Plan Assessment/Plan Assessment/Plan GI bleed/melena Duodenal ulcer Duodenitits Anemia due to duodenal ulcer alcohol dependence Continue IV fluids, Protonix Drip, monitor H/H. Will start clears and if she tolerates can increase to soft. YUSUF MORALES DO Jun 21, 2021 11:50
[2021-06-21] MEDS ORDERED: MAGNESIUM 1 GM/100 ML IVPB 100 ML IV SCH (12:00)
[2021-06-21] MEDS ORDERED: KCL 20 MEQ TAB (K-DUR) PO ONE ×2 (12:00→16:00)
[2021-06-21] MEDS ORDERED: cefTRIAXone 1,000 MG in WATER (STERILE) FOR INJECTION 10 ML IV SCH (12:00)
[2021-06-21 12:01] VITALS: BP 133/77
[2021-06-21 16:19] VITALS: BP 124/74
[2021-06-21 20:00] VITALS: BP 120/79
[2021-06-21] MEDS: PATCH REMOVAL TP SCH (20:17)
[2021-06-21 23:00] VITALS: BP 118/82
[2021-06-21] MEDS: PANTOPRAZOLE DRIP 200 MG/NS 100 ML IV SCH ×2 (23:56)
[2021-06-22 03:04] LABS: BASOPHILS % (AUTO) 1 % (0-10); EOSINOPHILS % (AUTO) 1 % (0-10); HEMATOCRIT 31 % (35-52); LYMPHOCYTES # (AUTO) 1.1 10^3/uL (1.0-4.0); LYMPHOCYTES % (AUTO) 22 % (12-44); MEAN CORPUSCULAR HEMOGLOBIN 33 pg (25-34); MEAN CORPUSCULAR HGB CONC 36 g/dL (32-36); MEAN CORPUSCULAR VOLUME 93 fL (80-99); MEAN PLATELET VOLUME 10.8 fL (9.0-12.2); MONOCYTES # (AUTO) 0.6 10^3/uL (0.0-1.0); MONOCYTES % (AUTO) 13 % (0-12); NEUTROPHILS # (AUTO) 3.3 10^3/uL (1.8-7.8); NEUTROPHILS % (AUTO) 64 % (42-75); PLATELET COUNT 174 10^3/uL (130-400); WHITE BLOOD COUNT 5.1 10^3/uL (4.3-11.0)
[2021-06-22 03:08] VITALS: BP 128/79
[2021-06-22 03:22] LABS: POTASSIUM 2.9 MMOL/L (3.6-5.0)
[2021-06-22 03:23] LABS: CALCIUM 7.6 MG/DL (8.5-10.1)
[2021-06-22 03:27] LABS: CREATININE SERUM 0.46 MG/DL (0.60-1.30)
[2021-06-22 03:29] LABS: MAGNESIUM 1.6 MG/DL (1.6-2.4)
[2021-06-22] MEDS: KCL 20 MEQ TAB (K-DUR) PO SCH (04:29)
[2021-06-22] MEDS: POTASSIUM CL 10MEQ/50ML IVPB 50 ML IV SCH ×6 (04:29→08:47)
[2021-06-22] MEDS: MAGNESIUM 1 GM/100 ML IVPB 100 ML IV SCH ×3 (04:29→05:36)
[2021-06-22] MEDS: SUCRALFATE 1 GM (CARAFATE) TAB PO SCH (04:41)
[2021-06-22] MEDS: LACTATED RINGERS 1,000 ML IV SCH (04:41)
[2021-06-22 07:37] VITALS: BP 129/81
[2021-06-22] MEDS: LIDOCAINE 4% (SALONPAS) PATCH TOP SCH (08:46)
[2021-06-22] MEDS: DICLOFENAC 1% GEL 100 GM (VOLTAREN) TUBE TOP SCH (08:53)
[2021-06-22] MEDS ORDERED: PATCH REMOVAL TP PRN (09:00)
[2021-06-22] MEDS ORDERED: CEFDINIR 300 MG (OMNICEF) CAP PO SCH (09:00)
[2021-06-22] MEDS ORDERED: PANTOPRAZOLE 40 MG (PROTONIX) TAB PO SCH (09:00)
--- NOTE | 2021-06-22 09:11 | Progress Note - Surgery ---
ANGIECODY 06/22/21 0911: Subjective Date Seen by a Provider: Jun 22, 2021 Time Seen by a Provider: 07:56 Subjective/Events-last exam Pt resting comfortably in bed. She started liquid diet yesterday for lunch and had pureed meal for dinner. Feeling stronger and wants to transition to soft solid foods. No BM since yesterday and no bleeding per rectum. Pt denies any abdominal pain. Review of Systems General: No Chills, No Night Sweats, No Fatigue; Appetite HEENT: No Head Aches, No Visual Changes, No Eye Pain, No Ear Pain, No Dysphasia, No Sinus Congestion Pulmonary: No Dyspnea; Cough; No Pleuritic Chest Pain Cardiovascular: No: Chest Pain, Palpitations, Orthopnea, Paroxysmal Noc. Dyspnea, Edema Gastrointestinal: No: Nausea, Vomiting, Abdominal Pain, Diarrhea, Constipation, Melena, Hematochezia Genitourinary: No Dysuria, No Frequency, No Incontinence, No Hematuria, No Retention Musculoskeletal: No: neck pain, shoulder pain, arm pain, leg pain, foot pain Neurological: No: Weakness, Numbness, Incoordination, Change in speech, Confusion Objective Exam Vital Signs Date Time Temp Pulse Resp B/P (MAP) Pulse Ox O2 Delivery O2 Flow Rate FiO2 06/22/21 07:37 36.7 79 14 129/81 (97) 96 Room Air 06/22/21 07:00 72 06/22/21 03:08 37.3 67 20 128/79 (95) 96 Room Air 06/22/21 01:00 72 06/21/21 23:00 36.5 75 15 118/82 (94) 96 Room Air 06/21/21 20:00 37.1 83 20 120/79 (93) 97 Room Air 06/21/21 20:00 97 Room Air 06/21/21 19:02 95 Room Air 06/21/21 19:00 88 06/21/21 16:19 36.1 89 18 124/74 (91) 90 Room Air 06/21/21 13:00 68 06/21/21 12:01 36.7 72 16 133/77 (95) 98 Room Air I & O 06/22/21 07:00 Intake Total 2930 ml Output Total 550 ml Balance 2380 ml Capillary Refill : Less Than 3 Seconds General Appearance: No Apparent Distress HEENT: PERRL/EOMI, Pharynx Normal, Moist Mucous Membranes Neck: Full Range of Motion, Normal Inspection, Non Tender, Supple Respiratory: Chest Non Tender, Lungs Clear, Normal Breath Sounds, No Accessory Muscle Use, No Respiratory Distress Cardiovascular: Regular Rate, Rhythm, No Edema, No Gallop, No Murmur, Normal Peripheral Pulses Peripheral Pulses: 2+ Radial Pulses (R), 2+ Radial Pulses (L) Gastrointestinal: normal bowel sounds, non tender, soft, no organomegaly, no pulsatile mass Extremity: Normal Capillary Refill, Normal Inspection, Normal Range of Motion, Non Tender, No Calf Tenderness, No Pedal Edema Neurologic/Psychiatric: Alert, Oriented x3, No Motor/Sensory Deficits, Normal 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, 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 Skin: Normal Color, Warm/Dry Lymphatic: No Adenopathy Results Lab Laboratory Tests 06/21/21 12:03: Glucometer 82 06/21/21 18:24: Glucometer 101 06/21/21 22:59: Glucometer 95 06/22/21 02:34: White Blood Count 5.1, Red Blood Count 3.33L, Hemoglobin 11.0L, Hematocrit 31L, Mean Corpuscular Volume 93, Mean Corpuscular Hemoglobin 33, Mean Corpuscular Hemoglobin Concent 36, Red Cell Distribution Width 15.9H, Platelet Count 174, Mean Platelet Volume 10.8, Immature Granulocyte % (Auto) 1, Neutrophils (%) (Auto) 64, Lymphocytes (%) (Auto) 22, Monocytes (%) (Auto) 13H, Eosinophils (%) (Auto) 1, Basophils (%) (Auto) 1, Neutrophils # (Auto) 3.3, Lymphocytes # (Auto) 1.1, Monocytes # (Auto) 0.6, Eosinophils # (Auto) 0.0, Basophils # (Auto) 0.0, Immature Granulocyte # (Auto) 0.0, Sodium Level 134L, Potassium Level 2.9L, Chloride Level 101, Carbon Dioxide Level 23, Anion Gap 10, Blood Urea Nitrogen 4L, Creatinine 0.46L, Estimat Glomerular Filtration Rate 135, BUN/Creatinine Ratio 9, Glucose Level 86, Calcium Level 7.6L, Magnesium Level 1.6 Microbiology 06/19/21 MRSA Screen - Final, Complete MRSA not isolated 06/19/21 Urine Culture - Final, Complete Escherichia coli Assessment/Plan Assessment/Plan Assessment/Plan GI bleed/melena Duodenal ulcer Duodenitits Anemia due to duodenal ulcer alcohol dependence Plan - continue fluids and nutrition, monitor for bleeding or changes in bowel. SUMANTH MORALES DO 06/22/21 1154: Subjective Time Seen by a Provider: 11:51 Subjective/Events-last exam Pt seen and examined, tolerating diet and denies any bleeding. Review of Systems General: No Chills, No Night Sweats Pulmonary: No Dyspnea; Cough Cardiovascular: No: Chest Pain, Palpitations Gastrointestinal: No: Nausea, Vomiting, Abdominal Pain Objective Exam General Appearance: No Apparent Distress, Thin Respiratory: Lungs Clear, Normal Breath Sounds, No Accessory Muscle Use Cardiovascular: Regular Rate, Rhythm, No Murmur Gastrointestinal: non tender, soft, no organomegaly Skin: Normal Color, Warm/Dry Assessment/Plan Assessment/Plan Assessment/Plan GI bleed/melena - resolved Duodenal ulcer - take PPI at home Duodenitits Anemia due to duodenal ulcer alcohol dependence Ok to D/C home from surgery standpoint and follow up with Dr. Nickerson in 10 days. Supervisory-Addendum Brief Verification & Attestation Participated in pt care: history, MDM, physical Personally performed: exam, history, MDM, supervision of care Care discussed with: Medical Student Procedures: n/a Verification and Attestation of Medical Student E/M Service A medical student performed and documented this service. I then reviewed and verified all information documented by the medical student and made modifications to such information, when appropriate. I personally performed a physical exam, medical decision making and then discussed any differences between the notes and made revisions as necessary to create one note. Sumanth Morales , 06/22/21 , 11:54 CODY ADAMS Jun 22, 2021 09:11 SUMANTH MORALES DO Jun 22, 2021 11:54
[2021-06-22] MEDS ORDERED: PANT40TA52 PO (09:32)
[2021-06-22] MEDS ORDERED: SUCR1TAB PO (09:32)
[2021-06-22] MEDS ORDERED: CEFD300C3 PO (09:32)
[2021-06-22 12:00] VITALS: BP 118/108
--- NOTE | 2021-06-23 10:50 | Discharge Summary ---
Discharge Summary Hospital Course Was the Problem List Reviewed?: Yes Problems/Dx: (1) Acute GI bleeding Status: Acute (2) ABLA (acute blood loss anemia) Status: Acute (3) NSAID-induced duodenal ulcer Status: Acute (4) Chronic back pain Status: Chronic Qualifiers: (5) Tobacco abuse Status: Chronic (6) Alcohol abuse Status: Chronic Hospital Course Date of Admission: Jun 20, 2021 at 13:28 Admission Diagnosis : Acute GI bleeding Family Physician/Provider: Chris Date of Discharge: 06/23/21 Discharge Diagnosis: Acute blood loss anemia due to GI bleeding from NSAID induced duodenal ulcer Hospital Course: Lia Sloan is a 70 year old female who was admitted with GI bleeding. She had been taking Ibuprofen frequently due to back pain. She smokes cigarettes and drinks alcohol daily. Surgery was consulted and she underwent EGD which revealed a duodenal ulcer. Her hemoglobin dropped and required 2 units PRBC. This stabilized and she was discharged home in stable condition. She was started on PPI twice daily for 8 weeks, then once daily, and sucralfate with meals. She should follow up with Dr. Nickerson, surgery, in 2-3 weeks. Her course was complicated by UTI and she was given a course of Omnicef. She also had electrolyte abnormalities, hypokalemia and hypomagnesemia, which were replaced and corrected. Labs and Pending Lab Test: Microbiology 06/19/21 MRSA Screen - Final, Complete MRSA not isolated 06/19/21 Urine Culture - Final, Complete Escherichia coli Home Meds Active Pantoprazole Sodium 40 Mg Tablet.dr 40 Mg PO BID 90 Days Sucralfate 1 Gm Tablet 1 Gm PO ACHS 30 Days Cefdinir 300 Mg Capsule 300 Mg PO BID 5 Days Reported Pepto-Bismol (Bismuth Subsalicylate) 525 Mg/15 Ml Oral.susp 15-30 Ml PO QID PRN Vitamin D3 (Cholecalciferol (Vitamin D3)) 25 Mcg Capsule 25 Mcg PO DAILY Assessment/Pt Instructions Take medications as prescribed. Discontinue tobacco and alcohol use. Stop using NSAIDs like Ibuprofen. Follow up with your PCP. Return wirh worsening symptoms. Discharge Planning: <30 minutes discharge planning Discharge Instructions Discharge Diet: No Restrictions Activity as Tolerated: Yes Consultations Surgery Discharge Physical Examination Vital Signs Vital Signs Date Time Temp Pulse Resp B/P (MAP) Pulse Ox O2 Delivery O2 Flow Rate FiO2 06/22/21 12:00 36.8 79 16 118/108 (111) 99 Room Air General Appearance: No Apparent Distress, WD/WN Respiratory: Lungs Clear, Normal Breath Sounds, No Respiratory Distress Cardiovascular: Regular Rate, Rhythm, No Edema, No Murmur Gastrointestinal: Normal Bowel Sounds, Non Tender, Soft Extremity: Normal Inspection, Non Tender, No Pedal Edema Skin: Normal Color, Warm/Dry Neurologic/Psychiatric: Alert, Oriented x3, No Motor/Sensory Deficits, Normal Mood/Affect Allergies: Coded Allergies: No Known Drug Allergies (Unverified , 09/18/19) Discharge Summary Date of Admission Jun 20, 2021 at 13:28 Date of Discharge Jun 22, 2021 at 19:59 Discharge Date: Jun 22, 2021 Discharge Time: 19:59 Admission Diagnosis Acute GI bleeding Consults/Procedures Consulations Surgery Procedures EGD Comfort Measures/ Time spent on discussion (min): 0 Discharge Diagnosis Acute GI bleeding Acute blood loss anemia NSAID induced duodenal ulcer (1) Acute GI bleeding Status: Acute (2) ABLA (acute blood loss anemia) Status: Acute (3) NSAID-induced duodenal ulcer Status: Acute (4) Chronic back pain Status: Chronic Qualifiers: (5) Tobacco abuse Status: Chronic (6) Alcohol abuse Status: Chronic CAROLA ALLEN MD Jun 23, 2021 10:48
== END 2021-06-22 19:59 | disposition home or self-care (01) | DRG 378 ==
LOC: EDUNIT# 05:22 → ER 05:24 → CSD 10:57 → UNDOADMOB 10:57 → ENDO 11:47 → CSD 14:00 → ICU 19:22 → OBSVTOIN 06-20 13:28 → CSD 06-20 18:22
PROVIDERS: ADMIT Internal Medicine; ATTEND Internal Medicine
PROC: 0DB68ZX Excision of Stomach, Via Natural or Artificial Opening Endoscopic, Diagnostic (ICD-10-PCS; principal; 2021-06-19 12:29)
DX: K26.4 Chronic or unspecified duodenal ulcer with hemorrhage (principal); D62 Acute posthemorrhagic anemia; N39.0 Urinary tract infection, site not specified; T39.395A Adverse effect of other nonsteroidal anti-inflammatory drugs [NSAID], initial encounter; Z20.822 Contact with and (suspected) exposure to COVID-19; F17.210 Nicotine dependence, cigarettes, uncomplicated; G89.29 Other chronic pain; M54.9 Dorsalgia, unspecified; M54.30 Sciatica, unspecified side; E87.6 Hypokalemia; E83.42 Hypomagnesemia; K29.81 Duodenitis with bleeding; F10.20 Alcohol dependence, uncomplicated; I95.9 Hypotension, unspecified
CPT/HCPCS: 36415; 36430; 71045; 80048; 80053; 81000; 82607; 82728; 82746; 82947; 83540; 83550; 83690; 83735; 84100; 85014; 85018; 85025; 85027; 85610; 85730; 86141; 86850; 86900; 86901; 86920; 87077; 87081; 87088; 87186; 87636; 96361; 96374; 96375; G0378

== ENCOUNTER 2021-09-05 05:28 | Outpatient (RCR) | payer MEDICARE ==
[~2021-09-05] VITALS: Ht 157.5 cm; Wt 47.2 kg
[~2021-09-05 05:28] MED LIST changes: +BISM525O18 PO; +CEFD300C3 PO; +CHOL10007 PO; +PANT40TA52 PO; +SUCR1TAB PO
== END 2021-09-05 13:35 | disposition home or self-care (01) ==
LOC: PREOP 05:28
PROVIDERS: ATTEND Surgery
DX: Z01.812 Encounter for preprocedural laboratory examination (principal); K21.9 Gastro-esophageal reflux disease without esophagitis; Z87.11 Personal history of peptic ulcer disease; Z20.822 Contact with and (suspected) exposure to COVID-19
CPT/HCPCS: 87635

== ENCOUNTER → 2021-09-10 | Day surgery (SDC) | payer MEDICARE ==
[~2021-09-10] VITALS: Ht 157.5 cm; Wt 47.2 kg
[~2021-09-10] MED LIST changes: +HURRICAINE EXT TUBE (BENZOCAINE) XX ONE; +HURRICAINE EXT TUBE (BENZOCAINE) XX PRN; +LACTATED RINGERS 1,000 ML IV ONE; +LACTATED RINGERS 1,000 ML IV STA; +MIDAZOLAM 2 MG/2 ML (VERSED) VIAL ONE; +SUCR1TAB36 PO; +proPOfol 200 MG/20 ML (DIPRIVAN) VIAL IV ONE
[2021-09-10 07:21] VITALS: BP 139/82
[2021-09-10 08:00] VITALS: BP 134/74
[2021-09-10 08:05] VITALS: BP 148/85
[2021-09-10 08:10] VITALS: BP 156/98
[2021-09-10 08:35] VITALS: BP 144/77
--- NOTE | 2021-09-10 08:51 | Discharge Inst-Simple/Standard ---
Discharge Inst-Standard Discharge Medications New, Converted or Re-Newed RX: Transmitted to Pharmacy Patient Instructions/Follow Up Plan of Care/Instructions/FU: 2 weeks krista Activity as Tolerated: Yes Discharge Diet: Regular Diet HIRAL CORONADO DO Sep 10, 2021 08:51
[2021-09-10 09:20] VITALS: BP 144/77
--- NOTE | 2021-09-10 11:36 | Anesthesia-General Post-Op ---
MAC Patient Condition Mental Status/LOC: Same as Preop Cardiovascular: Satisfactory Nausea/Vomiting: Absent Respiratory: Satisfactory Pain: Controlled Complications: Absent Post Op Complications Complications None Follow Up Care/Instructions Patient Instructions None needed. Anesthesiology Discharge Order Discharge Order Patient is doing well, no complaints, stable vital signs, no apparent adverse anesthesia problems. No complications reported per nursing. ZUNILDA ARAUJO CRNA Sep 10, 2021 11:36
--- NOTE | 2021-09-10 17:17 | OPERATIVE REPORT ---
DATE OF SERVICE: 09/10/2021 PREOPERATIVE DIAGNOSES: History of duodenal ulcer, gastroesophageal reflux disease, and anemia. POSTOPERATIVE DIAGNOSES: Healing duodenal ulcer, gastritis, small hiatal hernia. PROCEDURE: EGD with biopsy. 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 ESTIMATED BLOOD LOSS: None. COMPLICATIONS: None. INDICATIONS: The patient is a 70-year-old female with history of duodenal ulcer and GERD. She did not have biopsies performed at that time due to anticoagulation. The patient understands risks and benefits of procedure and wished to proceed with procedure. Consent was signed in the chart. DESCRIPTION OF PROCEDURE: The patient was taken to the endoscopy suite, placed in left lateral recumbent position. Timeout was performed. Scope was inserted in mouth, down the esophagus, stomach and into the duodenum without difficulty. No polyps, masses or ulcerations within the second portion of duodenum. In the first portion of duodenum, a small ulceration still present, appears to be a more shallow ulceration at this time and healed compared to last time. Some surrounding erythematous changes. Biopsies of the ulcer and inflammation were obtained. Scope was slowly retracted back to stomach where biopsy of the body and antrum were obtained. This is due to inflammatory changes consistent with some gastritis. Scope was then slowly retracted back until completely removed, noting no other pathology. The patient tolerated procedure well without any complications, taken to recovery room in stable condition. RECOMMENDATIONS: We will add Carafate 1 gram four times a day. We will see how she is doing in a couple of weeks and await biopsy results. Job ID: [id number] DocumentID: [id number] Dictated Date: 09/10/2021 11:33:11 Milk Sampler Date: 09/10/2021 17:16:51 Dictated By: HIRAL NICKERSON DO
== END | disposition home or self-care (01) ==
LOC: ENDO 09-09 08:12
PROVIDERS: ATTEND Surgery
DX: K29.80 Duodenitis without bleeding (principal); K26.9 Duodenal ulcer, unspecified as acute or chronic, without hemorrhage or perforation; K29.50 Unspecified chronic gastritis without bleeding; K21.9 Gastro-esophageal reflux disease without esophagitis; A04.8 Other specified bacterial intestinal infections; K44.9 Diaphragmatic hernia without obstruction or gangrene; D64.9 Anemia, unspecified; F17.210 Nicotine dependence, cigarettes, uncomplicated

== ENCOUNTER → 2021-09-24 | Outpatient (CLI) | payer MEDICARE ==
[~2021-09-24] MED LIST changes: -HURRICAINE EXT TUBE (BENZOCAINE) XX ONE; -HURRICAINE EXT TUBE (BENZOCAINE) XX PRN; -LACTATED RINGERS 1,000 ML IV ONE; -LACTATED RINGERS 1,000 ML IV STA; -MIDAZOLAM 2 MG/2 ML (VERSED) VIAL ONE; -proPOfol 200 MG/20 ML (DIPRIVAN) VIAL IV ONE
== END ==
LOC: LAB 14:44
PROVIDERS: ATTEND Surgery
DX: Z86.19 Personal history of other infectious and parasitic diseases (principal)

== ENCOUNTER → 2021-10-17 | Outpatient (CLI) | payer MEDICARE | LOC: LABNPT 08:58 | PROVIDERS: ATTEND Orthopaedic Surgery Orthopaedic Surgery of the Spine | DX: Z20.822 Contact with and (suspected) exposure to COVID-19 (principal) | CPT/HCPCS: 87635 ==

== ENCOUNTER 2023-07-20 08:35 | Emergency (ER) | payer MEDICARE ==
[~2023-07-20] VITALS: Ht 154.4 cm; Wt 47.2 kg
--- NOTE | 2023-07-20 08:46 | ED Hip Pain/Injury ---
General Chief Complaint: Hip/Pelvic Problems Stated Complaint: FALL Nursing Triage Note: fell 9 days ago and has been having pain and decreased mpobility since then. Patient states she has had a femur replacement on the right and that is the hip where her p[ain is the worst. Source: patient Exam Limitations: no limitations History of Present Illness Date Seen by Provider: Jul 20, 2023 Time Seen by Provider: 08:31 Initial Comments Patient is a 72-year-old female who presents to the emergency room with a chief complaint of right hip and groin pain. She had a fall 3 days ago, she was carrying a pizza and tripped over a pillow in the floor. She states she went face down and slid across the floor. She is complaining of pain to the medial right groin, has been able to get up and ambulate and move around. She has pr evious david to right femur [address] FERNANDO when he was a provider at this facility. She denies any numbness tingling or weakness. No problems with bowel or bladder. She states she has not had a bowel movement today, she has had some decrease in appetite over recent weeks. She did also suffer an abrasion to her right elbow. She has been taking Tylenol and using a heating pad. Last dose of Tylenol was a couple of hours ago. Timing/Duration: other (3d ago) Severity: moderate Location: hip (R), pelvis Method of Injury: fell Modifying Factors: Worse With Movement Associated Symptoms: trouble walking (due to pain in right hip) Allergies and Home Medications Allergies Coded Allergies: No Known Drug Allergies (Unverified , 09/18/19) Patient Home Medication List Home Medication List Reviewed: Yes Cholecalciferol (Vitamin D3) (Vitamin D3) 25 Mcg Capsule, 25 MCG PO DAILY, (Reported) Entered as Reported by: GIANCARLO ESTRADA on 06/20/21 0853 Pantoprazole Sodium (Pantoprazole Sodium) 40 Mg Tablet., 40 MG PO BID Prescribed by: CAROLA ALLEN on 06/22/21 0932 Sucralfate (Carafate) 1 Gm Tablet, 1 GM PO QID Prescribed by: HIRAL CORONADO on 09/10/21 0851 Review of Systems Constitutional: see HPI Respiratory: no symptoms reported Gastrointestinal: other (decreased appetite) Genitourinary: no symptoms reported Musculoskeletal: joint pain (right hip and groin) Skin: other (abrasion to right elbow) Past Gryusuu-Jzqzut-Cksqdj Hx Immunizations Up To Date Tetanus Booster (TDap): Unknown First/Initial COVID19 Vaccinat: YES Second COVID19 Vaccination Lester: YES Past Medical History Surgery/Hospitalization HX: RIGHT HIP ORIF, RIGHT ARM AND SHOULDER ORIF Surgeries: Yes Breast, Orthopedic Respiratory: No Currently Using CPAP: No Cardiac: No Neurological: No Reproductive Disorders: No Female Reproductive Disorders: Denies Sexually Transmitted Disease: No HIV/AIDS: No Genitourinary: No Gastrointestinal: No Musculoskeletal: Yes Endocrine: No HEENT: No Cancer: No (breat biopsies came back negative) Psychosocial: No Integumentary: No Blood Disorders: No Adverse Reaction/Blood Tranf: No Family Medical History No Pertinent Family Hx Physical Exam Vital Signs Vital Signs - First Documented 07/20/23 08:37 Temp 36.4 Pulse 99 Resp 18 B/P (MAP) 149/100 (116) Pulse Ox 100 O2 Delivery Room Air Capillary Refill : Less Than 3 Seconds Height, Weight, BMI Height: 5'3.00" Weight: 105lbs. oz. 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 Evaluation today includes physical exam, x- rays of the pelvis and right hip. Pertinent physical exam thin elderly appearing female in no acute distress. Vital signs are stable. Her right hip is mildly tender to palpation over the greater trochanter. She has limited range of motion secondary to pain in the right groin. Distal neurovascularly intact. She has normal range of motion at the foot and ankle. Differential diagnosis based on history and physical exam contusion versus hip fracture versus pelvic fracture X-rays independently reviewed and interpreted by me. Patient has questionable lucency of the inferior pubic ramus on the right. This is confirmed by radiologist read as "indeterminate age inferior pubic ramus fracture". Her hardware in the right hip is intact. Patient states that she would like to just take naproxen at home. I did offer stronger pain medication however she declined. We discussed alternating heat and ice as well as [id number]-jav-[id number] ointment such as Voltaren gel or Biofreeze. Patient is comfortable with the plan of care. I have encouraged her to use her walker for stability while her hip is healing. Return precautions provided in both verbal and written format. All questions are sought and answered. Patient is stable for discharge. Diagnostic Imaging Diagonstic Imaging: Xray Comments [facility], [place] NAME: RIKY CERRATO [facility] REC#: [id number] PT STATUS: REG ER : 1950 PHYSICIAN: TRACEE AZAR MD ADMIT DATE: 07/20/23/ER Draft Date of Exam:07/20/23 PELVIS WITH RIGHT HIP 2-3VIEWS PELVIS WITH RIGHT HIP 2-3VIEWS INDICATION: Right hip pain after trauma. COMPARISON: None available. TECHNIQUE: AP pelvis with AP and lateral views of the hip. FINDINGS: Old healed intertrochanteric fracture proximal right femur status post PFNA repair. No acute fracture. No features of hardware loosening. Mild osteoarthritis of the right hip is present. Subtle cortical irregularity in the inferior right pubic ramus is age-indeterminate. IMPRESSION: 1. Age-indeterminate fracture of the right inferior pubic ramus. 2. No acute fracture in the proximal right femur. Dictated on workstation # [id number] Dict: 07/20/23912 Trans: 07/20/23914 [facility] [id number] Interpreted by: ANGELA DO MD Electronically signed by: Departure Impression Primary Impression: Contusion of hip Qualified Codes: S70.01XA - Contusion of right hip, initial encounter Disposition: HOME, SELF-CARE Condition: Stable Departure-Patient Inst. Decision time for Depature: 10:13 Referrals: NO,LOCAL PHYSICIAN (PCP) Primary Care Physician CARMELLA AGUILAR (Family) Primary Care Physician Patient Instructions: Minor Contusion ED Add. Discharge Instructions: You can take The Naproxen (500mg) twice a day for the next 5 days. Always take this medication with food. Use your walker to get around at home for stability while your hip starts to fee better. You can use the Voltaren gel over the area of soreness and alternate heat and ice as needed. Follow up with your primary care physician [facility] any new, concerning or emergent complaints. TRACEE AZAR MD Jul 20, 2023 08:46
--- NOTE | 2023-07-20 09:15 | Diagnostic Imaging Report ---
PELVIS WITH RIGHT HIP 2-3VIEWS INDICATION: Right hip pain after trauma. COMPARISON: None available. TECHNIQUE: AP pelvis with AP and lateral views of the hip. FINDINGS: Old healed intertrochanteric fracture proximal right femur status post PFNA repair. No acute fracture. No features of hardware loosening. Mild osteoarthritis of the right hip is present. Subtle cortical irregularity in the inferior right pubic ramus is age-indeterminate. IMPRESSION: 1. Age-indeterminate fracture of the right inferior pubic ramus. 2. No acute fracture in the proximal right femur. Dictated by: Dictated on workstation # [id number]
[2023-07-20 10:29] VITALS: BP 144/89
== END 2023-07-20 10:29 | disposition home or self-care (01) ==
LOC: EDUNIT# 08:35 → ER 08:36
DX: S70.01XA Contusion of right hip, initial encounter (principal); S50.311A Abrasion of right elbow, initial encounter; F17.200 Nicotine dependence, unspecified, uncomplicated; W01.198A Fall on same level from slipping, tripping and stumbling with subsequent striking against other object, initial encounter